=== PATIENT | female | born 1960 | race Caucasian/White ===

== ENCOUNTER 2022-03-10 07:33 | Outpatient (REF) | payer OTHER, SELFPAY ==
[2022-03-10 08:32] LABS: Basophils Absolute Auto 0.1 X10*3/uL (0.0-0.2); Basophils Percent Auto 0.5 % (0-2); Eosinophils Absolute Auto 0.2 X10*3/uL (0.0-0.4); Eosinophils Percent Auto 1.6 % (0-4); Estimated Average Glucose 114 mg/dL; Hematocrit 45.5 % (37.0-47.0); Hemoglobin 14.1 g/dl (12.0-16.0); Hemoglobin A1c % 5.6 %; Imm Gran Abs Auto 0.02 X10*3/uL (0.00-0.03); Imm Gran Pct Auto 0.2 % (0.0-0.4); Lymphocytes Absolute Auto 5.6 X10*3/uL (1.2-4.9); MANUAL DIFF FLAG SCAN; Mean Corpuscular Hemoglobin 29.1 pg (27.0-33.0); Mean Corpuscular Volume 93.8 fL (80.0-98.0); Mean Platelet Volume 9.2 fL (9.4-12.3); Monocytes Absolute Auto 0.8 X10*3/uL (0.1-1.2); Monocytes Percent Auto 8.5 % (2-11); Neutrophils Absolute Auto 3.2 x10*3/uL (2.0-8.3); Neutrophils Percent Auto 32.2 % (45-73); Platelet Count 436 X10*3/uL (160-400); Red Blood Count 4.85 X10*6/uL (4.20-5.50); Red Cell Distribution Width 13.2 % (11.0-16.0); SCAN SMEAR FLAG 1; White Blood Count 9.9 X10*3/uL (4.8-10.8)
[2022-03-10 08:58] LABS: Alanine Aminotransferase 18 U/L (0-31); Albumin Level 4.1 g/dL (3.5-5.0); Alkaline Phosphatase 144 U/L (39-117); Anion Gap 14 (12-20); Aspartate Amino Transferase 19 U/L (5-31); Bilirubin Total 0.3 mg/dL (0.0-1.0); Blood Urea Nitrogen 20 mg/dL (9-16); Calcium 9.7 mg/dL (8.4-10.2); Carbon Dioxide 34 mmol/L (22-29); Chloride 97 mmol/L (96-108); Cholesterol 230 mg/dL; Estimated Glomerular Filt Rate 41; Glucose Random 126 mg/dL (60-115); HDL Cholesterol 41 mg/dL; LDL Cholesterol Calculated 161 mg/dl; Potassium 4.4 mmol/L (3.3-5.1); Sodium 141 mmol/L (135-145); Total Protein 7.4 g/dL (6.5-8.0); Triglycerides 142 mg/dL
[2022-03-10 09:06] LABS: SLIDE REVIEW VERIFIED
[2022-03-10 09:31] LABS: Ferritin 20 ng/mL (10-250); Folate 12.3 ng/mL (> or = 4.0); Thyroid Stimulating Hormone 4.15 uIU/mL (0.32-4.0); Vitamin B12 307 pg/mL (200-900)
== END 2022-03-10 07:34 | disposition home or self-care (01) ==
LOC: HO.LAB 07:33
PROVIDERS: PCP Internal Medicine; Visit Provider Internal Medicine
DX: D50.8 Other iron deficiency anemias (principal); E11.9 Type 2 diabetes mellitus without complications; E78.00 Pure hypercholesterolemia, unspecified; F43.12 Post-traumatic stress disorder, chronic; J44.9 Chronic obstructive pulmonary disease, unspecified
CPT/HCPCS: 36415; 80053; 80061; 82043; 82607; 82728; 82746; 83036; 84443; 85025

== ENCOUNTER 2023-03-20 11:28 | Outpatient (REF) | payer OTHER, SELFPAY ==
[2023-03-20 13:30] LABS: Basophils Absolute Auto 0.1 X10*3/uL (0.0-0.2); Basophils Percent Auto 0.4 % (0-2); Eosinophils Absolute Auto 0.2 X10*3/uL (0.0-0.4); Eosinophils Percent Auto 1.1 % (0-4); Hematocrit 38.9 % (37.0-47.0); Hemoglobin 11.7 g/dl (12.0-16.0); Imm Gran Abs Auto 0.08 X10*3/uL (0.00-0.03); Imm Gran Pct Auto 0.4 % (0.0-0.4); Lymphocytes Absolute Auto 4.1 X10*3/uL (1.2-4.9); Lymphocytes Percent Auto 22.3 % (20-40); MANUAL DIFF FLAG SCAN; Mean Corpuscular HGB Conc 30.1 g/dl (31.0-35.0); Mean Corpuscular Hemoglobin 28.3 pg (27.0-33.0); Mean Platelet Volume 9.4 fL (9.4-12.3); Monocytes Absolute Auto 1.6 X10*3/uL (0.1-1.2); Monocytes Percent Auto 8.9 % (2-11); Neutrophils Absolute Auto 12.2 x10*3/uL (2.0-8.3); Neutrophils Percent Auto 66.9 % (45-73); Platelet Count 397 X10*3/uL (160-400); Red Blood Count 4.14 X10*6/uL (4.20-5.50); Red Cell Distribution Width 14.3 % (11.0-16.0); SCAN SMEAR FLAG 1; White Blood Count 18.2 X10*3/uL (4.8-10.8)
[2023-03-20 13:44] LABS: Alanine Aminotransferase 15 U/L (0-31); Albumin Level 3.9 g/dL (3.5-5.0); Alkaline Phosphatase 111 U/L (39-117); Anion Gap 12 (12-20); Aspartate Amino Transferase 21 U/L (5-31); Bilirubin Total 0.3 mg/dL (0.0-1.0); Blood Urea Nitrogen 14 mg/dL (9-16); Calcium 9.5 mg/dL (8.4-10.2); Carbon Dioxide 38 mmol/L (22-29); Chloride 98 mmol/L (96-108); Cholesterol 101 mg/dL (<200); Estimated Glomerular Filt Rate > 60; Glucose Random 87 mg/dL (60-115); HDL Cholesterol 41 mg/dL (>40); LDL Cholesterol Calculated 45 mg/dL (<100); Potassium 4.7 mmol/L (3.3-5.1); Sodium 143 mmol/L (135-145); Total Protein 7.6 g/dL (6.5-8.0); Triglycerides 78 mg/dL (<150)
[2023-03-20 13:51] LABS: SLIDE REVIEW VERIFIED
[2023-03-20 14:03] LABS: Ferritin 26 ng/mL (10-250)
[2023-03-20 14:14] LABS: Creatinine Urine 36.64 mg/dL; Microalbum/Creatinine Ratio Ur 21.8 ug/mg cr (<30)
[2023-03-21 02:58] LABS: Vitamin B12 417 pg/mL (200-900)
== END 2023-03-20 11:29 | disposition home or self-care (01) ==
LOC: HO.10HDL 11:28
PROVIDERS: Visit Provider Internal Medicine
DX: D50.8 Other iron deficiency anemias (principal); E11.9 Type 2 diabetes mellitus without complications; E78.00 Pure hypercholesterolemia, unspecified; F43.12 Post-traumatic stress disorder, chronic; R09.02 Hypoxemia
CPT/HCPCS: 36415; 80053; 80061; 82043; 82570; 82607; 82728; 85025

== ENCOUNTER 2023-05-04 10:39 | Outpatient (REF) | payer OTHER, SELFPAY ==
--- NOTE | ~2023-05-04 | XR_ITS ---
EXAMINATION: XR CHEST CLINICAL INFORMATION: COPD/pneumonia COMPARISON: None available. TECHNIQUE: 2 views of the chest were obtained. FINDINGS: There is increased streaky opacity in the right upper lobe suggestive of pneumonia. No pleural effusion. There is mild enlargement of the cardiac silhouette. No acute osseous abnormality. XR/XR chest 2V IMPRESSION: Right upper lobe pneumonia. Follow-up to resolution is suggested.
== END 2023-05-04 10:40 | disposition home or self-care (01) ==
LOC: HO.XRAY 10:39
PROVIDERS: PCP Internal Medicine; Visit Provider Internal Medicine
DX: J44.9 Chronic obstructive pulmonary disease, unspecified (principal)
CPT/HCPCS: 71046

== ENCOUNTER 2023-06-01 15:45 | Outpatient (AMB) | payer OTHER, SELFPAY ==
--- NOTE | 2023-06-01 15:39 | A.OFFVIS_ITS ---
Vital Signs 06/01/23 15:45 Height 5 ft 7 in Weight 246 lb BMI 38.5 BP 104/62 Blood Pressure Location Rt brachial Position Sitting Pulse 62 Pulse Source Doppler Pulse Oximetry (%) 89 L Oxygen Delivery Method Nasal Cannula Oxygen Flow Rate 3 Intake Visit Reasons: possible lung mass Allergies No Known Allergies [No Known Allergies*] Allergy (Unverified 10/24/19 14:57) HPI HPI possible lung mass: Details: 63-year-old lady, former 60+ pack-year smoker, quit 2020 on supplemental oxygen referred for pulmonary evaluation. Patient states that she has been supplemental oxygen now for the last 7-8 years, likely secondary to possible underlying COPD. She is also complain of unrestful sleep and is interested in evaluation for sleep apnea. Patient does have a prior history of aspiration after prior strokes, however she does not have recent swallowing evaluation. Patient denies having prior pulmonary function testing. She is complaining of orthopnea, lower extremity edema, and dyspnea on exertion. Review of Systems Const Reports daytime sleepiness, Denies excessive sweating, Reports fatigue, Denies fever(s), Denies lethargy, Denies malaise, Denies night sweats, Reports snoring and Denies weight loss Eyes Denies blurry vision and Denies itchy eyes ENT Denies nasal congestion, Denies post nasal drip, Denies sinus pain, Denies sinus pressure and Denies other ( Thrush) Card Denies chest pain, Denies pedal edema, Denies dyspnea, Reports dyspnea on exertion, Denies orthopnea and Denies paroxysmal nocturnal dyspnea Resp Denies cough, Denies hemoptysis, Denies excessive phlegm production, Denies dyspnea, Reports dyspnea on exertion, Reports snoring and Denies wheezing GI Denies abdominal pain and Denies heartburn Musc Denies myalgias, Denies arthralgias and Denies joint swelling Skin/Breast Denies rash Neuro Denies memory loss and Denies seizure-like activity Psych Denies abnormal sleep pattern, Denies anxiety and Denies memory loss Endo Denies excessive sweating, Reports fatigue and Denies heat intolerance Shaq/Lymph Denies easy bruising Aller/Immun Denies itchy eyes, Denies seasonal rhinorrhea and Denies wheezing Physical Exam Vital Signs: Last Vital Signs Pulse 62 06/01/23 15:45 BP 104/62 06/01/23 15:45 Pulse Ox 89 L 06/01/23 15:45 Oxygen Delivery Method Nasal Cannula 06/01/23 15:45 Oxygen Flow Rate 3 06/01/23 15:45 BMI result Body Mass Index 38.5 Const General: no acute distress and alert Nutritional Appearance: obese Orientation/consciousness: Other orientation findings ( oriented) HEENT Head: Yes atraumatic Eyes General: appearance normal, both eyes and all related structures Sclerae: sclerae normal EOM: EOMs intact bilaterally Neck Neck: Yes supple Lymphatic: no lymphadenopathy noted Resp Effort & Inspection: normal respiratory effort and no use of accessory muscles Auscultation: clear to auscultation bilaterally Cardio Rate: regular rate Rhythm: regular rhythm Heart sounds: no gallops, no murmurs and no rubs Skin General skin exam: other ( warm) Extrem General: No clubbing, No cyanosis and Yes edema (1+ bilateral) Assessment & Plan Assessment & Plan (1) STEIN (dyspnea on exertion): Code(s): R06.09 - Other forms of dyspnea Category: Medical Plan: Likely multifactorial with contribution from underlying pulmonary and cardiac components. Will obtain 2D echocardiogram to evaluate cardiac component. (2) Supplemental oxygen dependent: Code(s): Z99.81 - Dependence on supplemental oxygen Category: Medical Plan: In office supplemental oxygen/6 minute walk test performed. Patient requires supplemental oxygen at 2 L at rest and 4 L with exertion to maintain normal. Updated order placed with [employer]. (3) Pulmonary aspiration: Code(s): T17.900A - Unspecified foreign body in respiratory tract, part unspecified causing asphyxiation, initial encounter Category: Medical Plan: Will obtain modified barium swallow. (4) Personal history of nicotine dependence: Code(s): Z87.891 - Personal history of nicotine dependence Category: Medical Plan: Will obtain lung cancer screening CT chest. (5) COPD (chronic obstructive pulmonary disease): Code(s): J44.9 - Chronic obstructive pulmonary disease, unspecified Category: Medical Plan: Unclear severity suboptimally controlled on Spiriva. Will change Spiriva to Anoro. Will obtain full PFT. Continue albuterol MDI. (6) ELSA (obstructive sleep apnea): Code(s): G47.33 - Obstructive sleep apnea (adult) (pediatric) Category: Medical Plan: Unrestful sleep, daytime sleepiness, snoring. [place] Sleepiness Scale score of 16. Will obtain home sleep study. Orders: Orders PFT pulmonary function test Today J44.9 - Chronic obstructive pulmonary disease, unspecified CT lung screening Today Z87.891 - Personal history of nicotine dependence FL barium swallow modified Today T17.900A - Unspecified foreign body in respiratory tract, part unspecified causing asphyxiation, initial encounter CA echo transthoracic complete Today R06.09 - Other forms of dyspnea RT home sleep study Today G47.33 - Obstructive sleep apnea (adult) (pediatric) Medications: New umeclidinium-vilanterol 62.5-25 mcg/actuation (Anoro Ellipta) 1 inh inhalation DAILY 30 days 1 ea 6RF J44.9 - Chronic obstructive pulmonary disease, unspecified Coding Level of Care Code New Pt Level 5 (35968) Diagnoses STEIN (dyspnea on exertion) R06.09 Supplemental oxygen dependent Z99.81 Pulmonary aspiration T17.900A Personal history of nicotine dependence Z87.891 COPD (chronic obstructive pulmonary disease) J44.9 ELSA (obstructive sleep apnea) G47.33
[2023-06-01 15:45] VITALS: BP 104/62; PULSE 62; O2SAT 89; BMI 38.5
[2023-06-01 16:51] VITALS: PULSE 86; O2SAT 86; O2SAT 92
== END 2023-06-01 16:17 | disposition home or self-care (01) ==
PROVIDERS: PCP Internal Medicine; Visit Provider Internal Medicine Pulmonary Disease
DX: J44.9 Chronic obstructive pulmonary disease, unspecified (principal); Z99.81 Dependence on supplemental oxygen; T17.900A Unspecified foreign body in respiratory tract, part unspecified causing asphyxiation, initial encounter; Z87.891 Personal history of nicotine dependence; G47.33 Obstructive sleep apnea (adult) (pediatric)
CPT/HCPCS: 94618; 99204

== ENCOUNTER → 2023-06-01 15:45 | Outpatient (BNVA) | payer OTHER, SELFPAY | PROVIDERS: PCP Internal Medicine; Visit Provider Internal Medicine Pulmonary Disease | DX: R06.09 Other forms of dyspnea (principal); J44.9 Chronic obstructive pulmonary disease, unspecified; T17.900A Unspecified foreign body in respiratory tract, part unspecified causing asphyxiation, initial encounter; G47.33 Obstructive sleep apnea (adult) (pediatric); Z87.891 Personal history of nicotine dependence; Z99.81 Dependence on supplemental oxygen | CPT/HCPCS: 94618; 99202 ==

== ENCOUNTER 2023-06-06 11:36 | Outpatient (REF) | payer OTHER, SELFPAY ==
--- NOTE | ~2023-06-06 | XR_ITS ---
EXAMINATION: XR CHEST CLINICAL INFORMATION: Fever, cough, question pneumonia. COMPARISON: 05/04/2023 TECHNIQUE: 2 views of the chest were obtained. FINDINGS: There is no gross pneumothorax. Redemonstration of enlargement of the cardiac silhouette. Mild degenerative changes in the thoracic spine. Diffusely prominent interstitial markings and moderate predominantly bibasilar opacities. Possible trace bilateral pleural effusions. XR/XR chest 2V IMPRESSION: Diffusely prominent interstitial markings and moderate predominantly bibasilar opacities. Possible trace bilateral pleural effusions. Previously noted right upper lobe streaky opacity appears less prominent. This study was presented today June 06, 2023 for interpretation. Stat results provided at this time as requested by referring provider.
== END 2023-06-06 11:37 | disposition home or self-care (01) ==
LOC: HO.XRAY 11:36
PROVIDERS: PCP Internal Medicine; Visit Provider Internal Medicine
DX: R05.9 Cough, unspecified (principal); R50.9 Fever, unspecified
CPT/HCPCS: 71046

== ENCOUNTER 2023-06-16 10:27 | Outpatient (REF) | payer OTHER, SELFPAY ==
--- NOTE | ~2023-06-16 | FL_ITS ---
EXAMINATION: Modified Barium Swallows CLINICAL INFORMATION: Dysphagia COMPARISON: None TECHNIQUE: Modified barium swallow was performed under lateral fluoroscopy with patient in standing position. Barium mixed with solids and liquids of different consistencies was administered by the speech pathologist. Examination was recorded in the fluoroscopy suite. FINDINGS: Laryngeal penetration was seen with nectar thick barium. Aspiration was observed with thin barium. FLUOROSCOPY TIME: 2 minutes 44 seconds Number of Spot Images: 1 DOSE AREA PRODUCT: 267.3 uGy-m2 (microgray-meter squared) FL/FL barium swallow modified IMPRESSION: Laryngeal penetration was seen with nectar thick barium. Aspiration was observed with thin barium. Refer to the full speech therapy report for further clarification This procedure was performed by Momo Owens PA-C, and supervised by Dr. Bryson
--- NOTE | 2023-06-29 14:17 | MHC.SL.IMP ---
Date of Plan of Treatment: 06/16/23 Onset of Symptoms/Illness: 06/01/23 Date Treatment Started: 06/16/23 Admitting Diagnosis: COPD Primary Speech & Language Diagnosis: R13.12 Oropharyngeal Phase Dysphagia Secondary Speech & Language Diagnosis: Reason for Today's Visit: [id number] Modified Barium Swallow Study Comments: Pre-evaluation Dietary Consistencies: Regular Pre-evaluation Liquid Consistency: Thin Pre-evaluation Medication Administration: Whole with Liquid Is patient able to manage secretions?: No Is patient able to produce volitional cough?: No Food and Liquid Trials: Oral Impairment: Lip Closure: 1=Interlabial escape; no progression to anterior tip Oral Impairment: Tongue Control During Bolus Hold: 0=Cohesive bolus between tongue to palatal seal Oral Impairment: Bolus Preparation/Mastication: 2=Disorganized chewing/mashing with solid pieces of bolus Oral Impairment: Bolus Transport/Lingual Motion: 1= Delayed initiation of tongue motion Oral Impairment: Oral Residue: 2=Residue collection on oral structures Oral Impairment:Initiation of Pharyngeal Swallow: 3=Bolus head in pyriforms Pharyngeal Impairment: Soft Palate Elevation: 0=No bolus between soft palate (SP)/pharyngeal wall (PW) Pharyngeal Impairment: Laryngeal Elevation: 1=Partial thyroid cartilage/arytenoids to epiglottic petiole movement Pharyngeal Impairment: Anterior Hyoid Excursion: 1=Partial anterior movement Pharyngeal Impairment: Epiglottic Movement: 1=Partial inversion Pharyngeal Impairment: Laryngeal Vestibular Closure:: 2=None: No inversion Pharyngeal Impairment: Pharyngeal Stripping Wave: 0=Present: complete Pharyngeal Impairment: Pharyngeal Contraction: Did not test Pharyngeal Impairment: Pharyngoesophageal Segment Openin=Partial distention/partial duration: partial obstruction of flow Pharyngeal Impairment: Tongue Base (TB) Retraction: 2=Narrow column of contrast/air between TB and posterior PW Pharyngeal Impairment: Pharyngeal Residue: 2=Collection of residue within or on pharyngeal structures Pharyngeal Impairment: Esophageal Clearance Upright Position: Did not test Impressions and Recommendations Clinical Observations: MBSImP Results: Lip closure for intraoral bolus containment resulted in interlabial escape, without progression to the anterior lip. Tongue control during bolus hold maintained a cohesive bolus held between tongue to palate seal. Bolus preparation and mastication demonstrated disorganized chewing/mashing with solid pieces of the bolus unchewed. Bolus transport/lingual motion demonstrated delayed initiation of tongue motion. Oral residue was a collection on oral structures. Initiation of the pharyngeal swallow occurred when the bolus head was in the pyriform sinuses. Soft palate elevation resulted in no bolus between the soft palate and the pharyngeal wall. Laryngeal elevation was decreased, with partial superior movement of the thyroid cartilage/partial approximation of the arytenoids to the epiglottic petiole. Anterior hyoid excursion demonstrated partial anterior movement. Epiglottic movement resulted in partial inversion. Laryngeal vestibular closure was absent, resulting in a wide column of air/contrast within the laryngeal vestibule at the height of the swallow. Pharyngeal stripping wave was present and complete. Pharyngeal contraction could not be determined due to logistical reasons not related to physiologic impairment. Pharyngoesophageal segment opening demonstrated partial distension/partial duration, with partial obstruction of bolus flow. Tongue base retraction allowed a narrow column of contrast or air between the retracted tongue base and the posterior pharyngeal wall. Pharyngeal residue was a collection of residue within or on pharyngeal structures. Esophageal clearance in the upright position could not be assessed due to logistical reasons not related to physiologic impairment. Oral Impairment Score: 8 Pharyngeal Impairment Score: 10 (absence of score, component 13) Esophageal Impairment Score: --- (absence of score, component 17) Laryngeal Penetration and Aspiration: Both Penetration and Aspiration were observed in today's study. [place]-thick Contrast entered the airway, contacted the vocal folds, and was ejected from the airway. Thin Contrast entered the airway, passed below the vocal folds, and was not ejected from the trachea despite effort. SUMMARY: Josephine presents with a moderate to severe oropharyngeal dysphagia. Oral phase difficulties include difficulty with bolus preparation due to reduced tongue strength and limited dentition leading to oral and pharyngeal residue after the initial swallow. Pharyngeal phase difficulties include poor tongue base retraction and limited motion of the epiglottis, hyoid and thyroid cartilage. Laryngeal vestibular closure at the height of the swallow resulted in a wide band of contrast in the airway that led to aspiration with an uncontrolled cup sip of Thin Liquids. Of note, she was able to tolerate Thin Liquids via spoon and with directions to take a small sip with bolus hold. Aspiration was also observed on [place]-Thick Liquids with an uncontrolled cup sip in the presence of pharyngeal residue. Aspiration on [place]-Thick Liquids was eliminated with cues to take a small sip and use bolus hold, even in the presence of pharyngeal residue. She is motivated to pursue follow-up and would benefit from outpatient [facility] treatment at this time. Liquid Intake Recommendation: [place] Thick Liquid Intake Strategies: Small Sips No Straws Double Swallow Dietary Recommendations: Chopped/Advanced (NDD3) Medication Administration: Whole with Puree Please contact the pharmacy regarding appropriate crushable or liquid drug formulations that are available whenever modified delivery is recommended. Compensatory Strategies Recommended: Sitting Upright (90 deg) Double Swallow Small Bites and Sips Alternate Liquids/Solids Rate of Ingestion Change Oral Check Avoid Specific Foods Supervision during eating and or drinking: Intermittent Supervision Recommended Treatments: Oral Motor Exercises Base of Tongue Exercises Vocal Cord Adduction Exer Recommendation for Speech Therapy: Outpatient Speech Therapy Text Comment: PLAN: Intake Recommendations: Post-Study Functional Oral Intake Scale (FOIS): 6- Total oral intake with no special preparation, but must avoid specific foods or liquid items. Specifically, IDDSI Level 6 ? Soft and Bite Sized Solids with [place]-Thick Liquids during meals. Follow-up with Outpatient [facility] to review strategies and modifications and work towards a [place] Free Water Protocol for home use. Frequency/Duration: 1 x week x 6 weeks Date Range for Service Requested: TBD Timeline to reassess: PRN Special Education Paraeducator Clinician/Clinical Fellow: No Supervisory Statement: N/A Speech Language Pathologist: Luis Enrique Mohamud M.A., CCC-[facility]
== END 2023-06-16 10:28 | disposition home or self-care (01) ==
LOC: HO.XRAY 10:27
PROVIDERS: PCP Internal Medicine; Visit Provider Internal Medicine Pulmonary Disease
DX: T17.900A Unspecified foreign body in respiratory tract, part unspecified causing asphyxiation, initial encounter (principal)
CPT/HCPCS: 74230; 92611

== ENCOUNTER → 2023-06-16 10:30 | Outpatient (BNV) | payer OTHER, SELFPAY | PROVIDERS: PCP Internal Medicine; Visit Provider Physician Assistant Surgical | DX: R13.10 Dysphagia, unspecified (principal) | CPT/HCPCS: 74230 ==

== ENCOUNTER 2023-07-14 11:06 | Outpatient (AMB) | payer OTHER, SELFPAY ==
[2023-07-14 11:07] VITALS: BP 104/60; PULSE 64; O2SAT 94; BMI 36.9
--- NOTE | 2023-07-14 11:07 | MHC.OFFVIS ---
Vital Signs 07/14/23 11:07 Height 5 ft 7 in Weight 235 lb 14.314 oz BMI 36.9 BP 104/60 Blood Pressure Location Rt brachial Position Sitting Pulse 64 Pulse Source Doppler Pulse Oximetry (%) 94 Oxygen Delivery Method Nasal Cannula Oxygen Flow Rate 4 Intake Visit Reasons: persistent cough, wheeze Allergies No Known Allergies [No Known Allergies*] Allergy (Unverified 10/24/19 14:57) HPI HPI persistent cough, wheeze: Details: 63-year-old lady, former 60+ pack-year smoker, quit 2020 on supplemental oxygen referred for pulmonary evaluation. Patient states that she has been supplemental oxygen now for the last 7-8 years, likely secondary to possible underlying COPD. She is also complain of unrestful sleep and is interested in evaluation for sleep apnea. Patient does have a prior history of aspiration after prior strokes, however she does not have recent swallowing evaluation. Patient denies having prior pulmonary function testing. She is complaining of orthopnea, lower extremity edema, and dyspnea on exertion. patient today presents for sick visit complaining of recurrent cough intermittently productive of some sputum, though better after starting on speech therapy for underlying aspirations. Rest of workup is still pending. Review of Systems Const Reports daytime sleepiness, Denies excessive sweating, Reports fatigue, Denies fever(s), Denies lethargy, Denies malaise, Denies night sweats, Denies snoring and Denies weight loss Eyes Denies blurry vision and Denies itchy eyes ENT Denies nasal congestion, Denies post nasal drip, Denies sinus pain, Denies sinus pressure and Denies other ( Thrush) Card Denies chest pain, Denies pedal edema, Reports dyspnea and Denies paroxysmal nocturnal dyspnea Resp Denies cough, Denies hemoptysis, Reports excessive phlegm production, Reports dyspnea, Denies snoring and Denies wheezing GI Denies abdominal pain and Denies heartburn Musc Denies myalgias, Denies arthralgias and Denies joint swelling Skin/Breast Denies rash Neuro Denies memory loss and Denies seizure-like activity Psych Denies abnormal sleep pattern, Denies anxiety and Denies memory loss Endo Denies excessive sweating, Reports fatigue and Denies heat intolerance Shaq/Lymph Denies easy bruising Aller/Immun Denies itchy eyes, Denies seasonal rhinorrhea and Denies wheezing Physical Exam Vital Signs: Last Vital Signs Pulse 64 06/07/24 11:07 BP 104/60 07/14/23 11:07 Pulse Ox 94 07/14/23 11:07 Oxygen Delivery Method Nasal Cannula 07/14/23 11:07 Oxygen Flow Rate 4 07/14/23 11:07 BMI result Body Mass Index 36.9 Const General: no acute distress and alert Nutritional Appearance: obese Orientation/consciousness: Other orientation findings ( oriented) HEENT Head: Yes atraumatic Eyes General: appearance normal, both eyes and all related structures Sclerae: sclerae normal EOM: EOMs intact bilaterally Neck Neck: Yes supple Lymphatic: no lymphadenopathy noted Resp Effort & Inspection: normal respiratory effort and no use of accessory muscles Auscultation: clear to auscultation bilaterally Cardio Rate: regular rate Rhythm: regular rhythm Heart sounds: no gallops, no murmurs and no rubs Skin General skin exam: other ( warm) Extrem General: No clubbing, No cyanosis and No edema Assessment & Plan Assessment & Plan (1) Pulmonary aspiration: Code(s): T17.900A - Unspecified foreign body in respiratory tract, part unspecified causing asphyxiation, initial encounter Category: Medical (2) Supplemental oxygen dependent: Code(s): Z99.81 - Dependence on supplemental oxygen Category: Medical (3) Personal history of nicotine dependence: Code(s): Z87.891 - Personal history of nicotine dependence Category: Medical (4) COPD (chronic obstructive pulmonary disease): Code(s): J44.9 - Chronic obstructive pulmonary disease, unspecified Category: Medical (5) ELSA (obstructive sleep apnea): Code(s): G47.33 - Obstructive sleep apnea (adult) (pediatric) Category: Medical (6) STEIN (dyspnea on exertion): Code(s): R06.09 - Other forms of dyspnea Category: Medical Plan Results of MBS reviewed, acute on chronic aspiration with likely pneumonitis. Will treat with a brief course of Augmentin. Rest of the workup is pending. Continue supplemental oxygen to maintain O2 saturation 88-92%. Medications: New amoxicillin-pot clavulanate 875-125 mg 1 tab PO BID 14 tabs 0RF Coding Level of Care Code Est Pt Level 4 (75030) Diagnoses Pulmonary aspiration T17.900A Supplemental oxygen dependent Z99.81 Personal history of nicotine dependence Z87.891 COPD (chronic obstructive pulmonary disease) J44.9 ELSA (obstructive sleep apnea) G47.33 STEIN (dyspnea on exertion) R06.09
== END 2023-07-14 11:37 | disposition home or self-care (01) ==
PROVIDERS: PCP Internal Medicine; Visit Provider Internal Medicine Pulmonary Disease
DX: J44.9 Chronic obstructive pulmonary disease, unspecified (principal); G47.33 Obstructive sleep apnea (adult) (pediatric); Z99.81 Dependence on supplemental oxygen; Z87.891 Personal history of nicotine dependence
CPT/HCPCS: 99214

== ENCOUNTER → 2023-07-14 11:06 | Outpatient (BNVA) | payer OTHER, SELFPAY | PROVIDERS: PCP Internal Medicine; Visit Provider Internal Medicine Pulmonary Disease | DX: J44.9 Chronic obstructive pulmonary disease, unspecified (principal); R06.09 Other forms of dyspnea; T17.900A Unspecified foreign body in respiratory tract, part unspecified causing asphyxiation, initial encounter; G47.33 Obstructive sleep apnea (adult) (pediatric); Z87.891 Personal history of nicotine dependence; Z99.81 Dependence on supplemental oxygen | CPT/HCPCS: 99212 ==

== ENCOUNTER → 2023-07-18 13:02 | Outpatient (REF) | payer OTHER, SELFPAY ==
--- NOTE | 2023-07-18 13:05 | CA_ITS ---
Transthoracic Echocardiogram Patient (Last, First, Middle): Josephine Giron, Gender: Female Date of : 1960 Age: 63 Procedure Date: 07/18/2023 Procedure Type: Transthoracic Echocardiogram Location: OP Height: 170.18 cm Weight: 104.33 kg BSA: 2.15 m2 Heart Rate: bpm BP: 88 / 56 mmHg Hand Patcher: [place] Referring MD: Gelacio Moreno MD Symptoms: R06.09 - Other forms of dyspnea Study Quality: Adequate ECG Rhythm: Sinus Conclusions: - The left ventricular systolic function is normal. The calculated ejection fraction is 69% by biplane method. - No obvious valvular pathology seen on this study. - There is no evidence of pulmonary hypertension. Findings Left Ventricle Normal left ventricular cavity size. There is normal left ventricular wall thickness. The left ventricular systolic function is normal. The calculated ejection fraction is 69% by biplane method. There is no evidence of regional wall motion abnormalities. Diastolic function is normal for age. LV peak GLS -22.2%. Right Ventricle Mildly increased right ventricular cavity size. There is normal right ventricular systolic function. Atria Both atria are normal in size. Aortic Valve There is a normal trileaflet aortic valve. There is no aortic valve stenosis. There is no aortic valve regurgitation. Mitral Valve The mitral valve appears normal. There is trace mitral valve regurgitation. There is no mitral valve stenosis. Pulmonic Valve The pulmonic valve is likely normal. Tricuspid Valve Normal tricuspid valve structure. There is trace tricuspid valve regurgitation. There is no evidence of pulmonary hypertension. Great Vessels The asc aorta is normal in size. Venous The inferior vena cava is normal in size and collapses less than 50% with inspiration. Pericardium/Pleural There is no evidence of pericardial effusion. Prior Study Comparison No prior study available for comparison. Recommendations, Care & Conclusions No obvious valvular pathology seen on this study. Measurements 2D Linear Measurements IVSd: 0.89 0.6-0.9/0.6-1.0 cm LVIDd: 5.28 3.9-5.3/4.2-5.9 cm LVIDd Index: 2.46 2.4-3.2/2.2-3.1 cm/m2 LVIDs: 3.35 2.0-3.6 cm LVPWd: 0.95 0.7-1.1 cm LA Diam: 4.10 2.7-3.8/3.0-4.0 cm LAIDs Index: 1.91 1.5-2.3 cm/m2 LV Mass: 222.14 67-162/88-224 g LV Mass Index: 103.32 43-95/49-115 g/m2 LVOT Diam: 2.00 3.0+(-)1.3 cm 2D Systolic Function EF 4C: 69.40 >55% EF 2C: 68.30 >55% EF BiP: 68.80 >55% Mitral Valve MV Pk E: 0.82 MV PK A: 0.73 MV Decel Time: 218.00 E/A: 1.10 E'Lateral: 10.90 E'Medial: 7.72 E/E' Med: 10.60 E/E' Lat: 7.50 PHT: 64.00 MVA PHT: 3.44 Decel [place]: 3.75 Aortic Valve AoV Pk Deep: 1.58 AoV Mn Deep: 1.10 AoV VTI: 0.43 AoV Pk Grad: 10.00 Aov Mn Grad: 6.00 MIRIAN Cont.VTI: 2.24 LVOT LVOT Pk Deep: 1.26 LVOT Mn Depe: 0.81 LVOT VTI: 0.31 LVOT Pk Grad: 6.00 LVOT Mn Grad: 3.00 LVOT Diam: 2.00 LVOT Area: 3.14 Diastolic Function MV Pk E: 0.82 MV Pk A: 0.73 E/A: 1.10 E'Medial: 7.72 E/E' Med: 10.60 E' Laterial: 10.90 E/E' Lat: 7.50 Right Ventricle TAPSE (mm): 23.50 TVS' Deep: 11.70 Tricuspid Valve TR Pk Deep: 2.39 TR Pk Grad: 23.00 RA Press: 8.00 RVSP: 31.00 Great Vessels Aorta Sinus of Valsalva: 3.06 2.0-3.[address] [place]: 2.55 1.7-3.4 cm Ao Asc: 3.30 2.1-3.4 cm Updated in Other Vendor System with Status of Final Lazarus Wilder MD electronically signed on 07/19/2023 10:23:16 AM with status of Final
== END ==
LOC: HO.CARD 13:02
PROVIDERS: PCP Internal Medicine; Visit Provider Internal Medicine Pulmonary Disease
DX: G47.33 Obstructive sleep apnea (adult) (pediatric) (principal); R06.09 Other forms of dyspnea
CPT/HCPCS: 93306; 93356; 95806

== ENCOUNTER → 2023-07-18 13:05 | Outpatient (BNV) | payer OTHER, SELFPAY | PROVIDERS: PCP Internal Medicine; Visit Provider Internal Medicine | DX: R06.09 Other forms of dyspnea (principal) | CPT/HCPCS: 93306; 93356 ==

== ENCOUNTER → 2023-07-18 14:54 | Outpatient (BNV) | payer OTHER, SELFPAY | PROVIDERS: PCP Internal Medicine; Visit Provider Internal Medicine | DX: R06.83 Snoring (principal) | CPT/HCPCS: 95806 ==

== ENCOUNTER 2023-07-20 12:59 | Outpatient (REF) | payer OTHER, SELFPAY ==
--- NOTE | ~2023-07-20 | CT_ITS ---
EXAMINATION: CT LOW-DOSE SCREENING CHEST WITHOUT CONTRAST CLINICAL INFORMATION: Personal history of nicotine dependence. The patient has a 40 pack-year history of smoking, having quit 3 years ago. COMPARISON: Chest x-ray 06/06/2023 and 05/04/2023. TECHNIQUE: Multidetector volumetric CT imaging of the chest is performed on a Siemens SOMATOM Definition scanner without contrast using low dose technique. Additional 2D coronal and sagittal reformatted images and axial 3D maximum intensity projection (MIP) images are generated on the CT workstation. This CT examination was performed using dose optimization techniques as appropriate, variously including the following: *Automated exposure control. *Adjustment of mA and/or kV according to patient size (this includes techniques or standardized protocols for targeted exams where dose is matched to indication/reason for exam; i.e. extremities or head). *Use of iterative reconstruction technique. TOTAL EXAM DLP: 46 mGy-cm. CTDIvol: 1.59 mGy. FINDINGS: PULMONARY NODULES: No suspicious pulmonary nodules. LUNGS: Lungs bilaterally symmetrically expanded. There is moderate emphysema and bronchial thickening. Bibasilar atelectasis is seen with some dependent ground-glass changes. No effusion or pneumothorax. Central airways patent. MEDIASTINUM: No mediastinal, hilar or axillary adenopathy or free fluid collection. CORONARY ARTERY CALCIFICATION: Moderate. THYROID GLAND: Unremarkable to the extent seen. CARDIOVASCULAR STRUCTURES: Aortic and heart size normal. No pericardial effusion. CHEST WALL/AXILLA: Unremarkable. UPPER ABDOMEN: The liver appears enlarged. Status post cholecystectomy. Spleen is absent. OSSEOUS STRUCTURES: No suspicious focal findings. CT/CT lung screening IMPRESSION: 1. No evidence of pulmonary malignancy. 2. Moderate emphysema and bronchial thickening. 3. Other incidental findings as described above. ASSESSMENT: 1. Lung-RADS Category 1: Negative. There are no nodules or there are definitely benign nodules. N/A. 2. Lung-RADS Category S: Negative. There are no clinically significant or potentially clinically significant findings not related to the lungs requiring urgent additional evaluation. RECOMMENDATION: Continued routine annual low-dose CT lung screening in 1 year is recommended. An order for CT CHEST LOW DOSE CANCER SCREENING ([id number]) can be placed.
== END 2023-07-20 13:00 | disposition home or self-care (01) ==
LOC: HO.CT 12:59
PROVIDERS: PCP Internal Medicine; Visit Provider Internal Medicine Pulmonary Disease
DX: Z12.2 Encounter for screening for malignant neoplasm of respiratory organs (principal); Z87.891 Personal history of nicotine dependence
CPT/HCPCS: 71271

== ENCOUNTER 2023-07-27 13:50 | Outpatient (AMB) | payer OTHER, SELFPAY ==
[2023-07-27 13:52] VITALS: BP 102/58; PULSE 67; O2SAT 93; BMI 36.4
--- NOTE | 2023-07-27 13:52 | MHC.OFFVIS ---
Vital Signs 07/27/23 13:52 Height 5 ft 7 in Weight 232 lb 9.403 oz BMI 36.4 BP 102/58 L Blood Pressure Location Lt brachial Position Sitting Pulse 67 Pulse Source Doppler Pulse Oximetry (%) 93 Oxygen Delivery Method Nasal Cannula Oxygen Flow Rate 4 Intake Visit Reasons: COPD Allergies No Known Allergies [No Known Allergies*] Allergy (Verified 07/27/23 14:00) HPI HPI COPD: Details: 63-year-old lady, former 60+ pack-year smoker, quit 2020 now followed for supplemental oxygen dependent COPD, pulmonary aspiration, and possible obstructive sleep apnea. Patient had MBS that showed pulmonary aspiration and she is working with speech therapy on diet modification and swallowing techniques. Her 2D echocardiogram is essentially normal. Lung cancer screening CT chest official read is pending, but no worrisome nodules on my review. Patient is using albuterol MDI and Anoro with reasonable baseline control of her underlying COPD, except right after waking up. Her sleep study is pending. Patient denies recent acute exacerbations. Review of Systems Const Denies daytime sleepiness, Denies excessive sweating, Denies fatigue, Denies fever(s), Denies lethargy, Denies malaise, Denies night sweats, Denies snoring and Denies weight loss Eyes Denies blurry vision and Denies itchy eyes ENT Denies nasal congestion, Denies post nasal drip, Denies sinus pain, Denies sinus pressure and Denies other ( Thrush) Card Denies chest pain, Denies pedal edema, Denies dyspnea, Denies orthopnea and Denies paroxysmal nocturnal dyspnea Resp Denies cough, Denies hemoptysis, Denies excessive phlegm production, Denies dyspnea, Denies snoring and Denies wheezing GI Denies abdominal pain and Denies heartburn Musc Denies myalgias, Denies arthralgias and Denies joint swelling Skin/Breast Denies rash Neuro Denies memory loss and Denies seizure-like activity Psych Denies abnormal sleep pattern, Denies anxiety and Denies memory loss Endo Denies excessive sweating, Denies fatigue and Denies heat intolerance Shaq/Lymph Denies easy bruising Aller/Immun Denies itchy eyes, Denies seasonal rhinorrhea and Denies wheezing Physical Exam Vital Signs: Last Vital Signs Pulse 67 07/27/23 13:52 BP 102/58 L 07/27/23 13:52 Pulse Ox 93 07/27/23 13:52 Oxygen Delivery Method Nasal Cannula 07/27/23 13:52 Oxygen Flow Rate 4 07/27/23 13:52 BMI result Body Mass Index 36.4 Const General: no acute distress and alert Nutritional Appearance: not obese Orientation/consciousness: Other orientation findings ( oriented) HEENT Head: Yes atraumatic Eyes General: appearance normal, both eyes and all related structures Sclerae: sclerae normal EOM: EOMs intact bilaterally Neck Neck: Yes supple Lymphatic: no lymphadenopathy noted Resp Effort & Inspection: normal respiratory effort and no use of accessory muscles Auscultation: clear to auscultation bilaterally Cardio Rate: regular rate Rhythm: regular rhythm Heart sounds: no gallops, no murmurs and no rubs Skin General skin exam: other ( warm) Extrem General: No clubbing, No cyanosis and No edema Assessment & Plan Assessment & Plan (1) ELSA (obstructive sleep apnea): Code(s): G47.33 - Obstructive sleep apnea (adult) (pediatric) Category: Medical Plan: Sleep study is pending. (2) COPD (chronic obstructive pulmonary disease): Code(s): J44.9 - Chronic obstructive pulmonary disease, unspecified Category: Medical Plan: Unclear severity. PFT is pending. Continue Anoro and albuterol MDI. Will add duo nebs. (3) Personal history of nicotine dependence: Code(s): Z87.891 - Personal history of nicotine dependence Category: Medical Plan: Official read on lung cancer screening CT chest is not available. On my review and no worrisome nodules. Continue with yearly screening. (4) Pulmonary aspiration: Code(s): T17.900A - Unspecified foreign body in respiratory tract, part unspecified causing asphyxiation, initial encounter Category: Medical Plan: MBS positive for aspiration. Patient requires diet modification. DME letter written. Patient continues to work with speech therapy. (5) Supplemental oxygen dependent: Code(s): Z99.81 - Dependence on supplemental oxygen Category: Medical Plan: Continue supplemental oxygen to maintain O2 saturation of 88-92%. (6) STEIN (dyspnea on exertion): Code(s): R06.09 - Other forms of dyspnea Category: Medical Plan: Results of 2D echocardiogram reviewed and are essentially normal. Coding Level of Care Code Est Pt Level 4 (38441) Complex EM visit Add On G2211 Diagnoses ELSA (obstructive sleep apnea) G47.33 COPD (chronic obstructive pulmonary disease) J44.9 Personal history of nicotine dependence Z87.891 Pulmonary aspiration T17.900A Supplemental oxygen dependent Z99.81 STEIN (dyspnea on exertion) R06.09
== END 2023-07-27 14:16 | disposition home or self-care (01) ==
PROVIDERS: PCP Internal Medicine; Visit Provider Internal Medicine Pulmonary Disease
DX: G47.33 Obstructive sleep apnea (adult) (pediatric) (principal); J44.9 Chronic obstructive pulmonary disease, unspecified; Z87.891 Personal history of nicotine dependence; T17.900A Unspecified foreign body in respiratory tract, part unspecified causing asphyxiation, initial encounter; Z99.81 Dependence on supplemental oxygen; R06.09 Other forms of dyspnea
CPT/HCPCS: 99214; G2211

== ENCOUNTER → 2023-07-27 13:50 | Outpatient (BNVA) | payer OTHER, SELFPAY | PROVIDERS: PCP Internal Medicine; Visit Provider Internal Medicine Pulmonary Disease | DX: J44.9 Chronic obstructive pulmonary disease, unspecified (principal); G47.33 Obstructive sleep apnea (adult) (pediatric); R06.09 Other forms of dyspnea; T17.900A Unspecified foreign body in respiratory tract, part unspecified causing asphyxiation, initial encounter; Z87.891 Personal history of nicotine dependence | CPT/HCPCS: 99212 ==

== ENCOUNTER 2023-08-21 10:30 | Outpatient (RCR) | payer OTHER, SELFPAY ==
--- NOTE | 2023-09-15 10:39 | MHC.SL.DTX ---
Dysphagia Diet modifications: Last documented Solid diet consistencies: Chopped/Advanced (NDD3) Last documented Liquid consistency: Thin Changes made to current diet?: No Liquid Consistency and Strategies: Liquid Intake Recommendation: [place] Thick Compensatory Strategies for Safe Swallow: Small Sips No Straws Compensatory Strategies for Safe Swallow(b): Sitting Upright (90 deg) Liquids from Cup Small Bites and Sips Alternate Liquids/Solids Rate of Ingestion Change Avoid Specific Foods Solid Food Consistency: Dietary Recommendations: Chopped/Advanced (NDD3) Oral Medication Intake: Whole with Puree Strategies and Precautions to be Taken for Safe Swallow: Sitting Upright (90 deg) Liquids from Cup Small Bites and Sips Alternate Liquids/Solids Rate of Ingestion Change Avoid Specific Foods Supervision While Eating and/Drinking: Total Supervision (1:1) Foods to Avoid: Mixed consistencies. Swallowing Recommended Treatments: Oral Motor Exercises Compens. Strategy Educat. Level of Impact on: Daily activities: Moderate Education: None Employment: None Community: Moderate Prognosis for Improvement: Good Recommendation for Speech: Comment: Discharge Outpatient Services Frequency/Duration: n/a Date Range for Service Req: n/a Timeline to reassess: PRN Treatment: Pt arrives with just her Daughter. They have initiated use of thickened liquids. LOADING DOCK HAND demonstrates the IDDSI flow test to assess the consistency she has been trialing which turned out to be too thin. She reapplyed the less and was able to demonstrate back nectar thick liquids. Pt has been sporadically compliant with exercises provided, but is able to demonstrate them back on-command. Further education provided regarding the use of chin tuck not being necessary per Daughter's concern. Assessment: Plan is to discharge and re-assess with repeat MBSS. LOADING DOCK HAND will request referral from provider. Proofing Machine Operator Clinican/Clinical Fellow: No Supervisory Statement: I have reviewed and agree with the student/clinical fellow's documentation: N/A Speech Language Pathologist: Luis Enrique Mohamud M.A., CCC-LOADING DOCK HAND
== END 2023-09-22 15:48 | disposition home or self-care (01) ==
LOC: HO.SH 10:30
PROVIDERS: PCP Internal Medicine; Visit Provider Internal Medicine Pulmonary Disease
DX: T17.900A Unspecified foreign body in respiratory tract, part unspecified causing asphyxiation, initial encounter (principal)
CPT/HCPCS: 92526

== ENCOUNTER 2023-09-22 13:30 | Outpatient (AMB) | payer OTHER, SELFPAY ==
[2023-09-22 13:32] VITALS: BP 122/62; PULSE 70; O2SAT 93; BMI 35.6
--- NOTE | 2023-09-22 13:32 | MHC.OFFVIS ---
Vital Signs 09/22/23 13:32 Height 5 ft 7 in Weight 227 lb 1.218 oz BMI 35.6 BP 122/62 Blood Pressure Location Rt brachial Position Sitting Pulse 70 Pulse Source Doppler Pulse Oximetry (%) 93 Oxygen Delivery Method Nasal Cannula Oxygen Flow Rate 4 Intake Visit Reasons: cough, congestion Covid neg Allergies No Known Allergies [No Known Allergies*] Allergy (Verified 09/22/23 13:38) HPI HPI cough, congestion Covid neg: Details: 63-year-old lady, former 60+ pack-year smoker, quit 2020 now followed for supplemental oxygen dependent COPD, pulmonary aspiration, and possible obstructive sleep apnea. Patient had MBS that showed pulmonary aspiration and she is working with speech therapy on diet modification and swallowing techniques. Her 2D echocardiogram is essentially normal. Lung cancer screening CT chest is essentially normal. Patient is using albuterol MDI and Anoro with reasonable baseline control of her underlying COPD, except right after waking up. Her sleep study is essentially normal. Patient does complain another acute exacerbation symptomatic with fevers and productive cough. Patient does have underlying history of asplenia. Review of Systems Const Denies daytime sleepiness, Denies excessive sweating, Denies fatigue, Denies fever(s), Denies lethargy, Denies malaise, Denies night sweats, Denies snoring and Denies weight loss Eyes Denies blurry vision and Denies itchy eyes ENT Denies nasal congestion, Denies post nasal drip, Denies sinus pain, Denies sinus pressure and Denies other ( Thrush) Card Denies chest pain, Denies pedal edema, Denies dyspnea, Denies orthopnea and Denies paroxysmal nocturnal dyspnea Resp Reports cough, Denies hemoptysis, Reports excessive phlegm production, Denies dyspnea, Denies snoring and Denies wheezing GI Denies abdominal pain and Denies heartburn Musc Denies myalgias, Denies arthralgias and Denies joint swelling Skin/Breast Denies rash Neuro Denies memory loss and Denies seizure-like activity Psych Denies abnormal sleep pattern, Denies anxiety and Denies memory loss Endo Denies excessive sweating, Denies fatigue and Denies heat intolerance Shaq/Lymph Denies easy bruising Aller/Immun Denies itchy eyes, Denies seasonal rhinorrhea and Denies wheezing Physical Exam Vital Signs: Last Vital Signs Pulse 70 09/22/23 13:32 BP 122/62 09/22/23 13:32 Pulse Ox 93 09/22/23 13:32 Oxygen Delivery Method Nasal Cannula 09/22/23 13:32 Oxygen Flow Rate 4 09/22/23 13:32 BMI result Body Mass Index 35.6 Const General: no acute distress and alert Nutritional Appearance: not obese Orientation/consciousness: Other orientation findings ( oriented) HEENT Head: Yes atraumatic Eyes General: appearance normal, both eyes and all related structures Sclerae: sclerae normal EOM: EOMs intact bilaterally Neck Neck: Yes supple Lymphatic: no lymphadenopathy noted Resp Effort & Inspection: normal respiratory effort and no use of accessory muscles Auscultation: clear to auscultation bilaterally Cardio Rate: regular rate Rhythm: regular rhythm Heart sounds: no gallops, no murmurs and no rubs Skin General skin exam: other ( warm) Extrem General: No clubbing, No cyanosis and No edema Assessment & Plan Assessment & Plan (1) Recurrent pneumonia: Code(s): J18.9 - Pneumonia, unspecified organism Category: Medical Plan: Will treat with a course of doxycycline and obtain immunoglobulin levels. If immunoglobulin levels are normal, will consider prophylactic antibiotics. (2) ELSA (obstructive sleep apnea): Code(s): G47.33 - Obstructive sleep apnea (adult) (pediatric) Category: Medical Plan: Results of sleep study visit, does not have underlying obstructive sleep apnea. (3) COPD (chronic obstructive pulmonary disease): Code(s): J44.9 - Chronic obstructive pulmonary disease, unspecified Category: Medical Plan: Reasonable control on Anoro, duo nebs, and albuterol MDI. Continue current regimen. (4) Pulmonary aspiration: Code(s): T17.900A - Unspecified foreign body in respiratory tract, part unspecified causing asphyxiation, initial encounter Category: Medical Plan: Status post MBS with demonstration of aspiration. Continues with diet modification. (5) Supplemental oxygen dependent: Code(s): Z99.81 - Dependence on supplemental oxygen Category: Medical Plan: Continue supplemental oxygen to maintain O2 saturation of 88-92%. (6) Personal history of nicotine dependence: Code(s): Z87.891 - Personal history of nicotine dependence Category: Medical Plan: Results of screening CT chest reviewed and show no worrisome pulmonary nodules. Will continue with yearly screening. Orders: Orders Immunoglobulin G Subclasses Today J18.9 - Pneumonia, unspecified organism Immunoglobulins,IgG IgA IgM Today J18.9 - Pneumonia, unspecified organism Medications: New doxycycline monohydrate 100 mg PO BID 20 caps 0RF Discontinued amoxicillin-pot clavulanate 875-125 mg Discontinued Reason: Doctor's Order 1 tab PO BID 14 tabs 0RF azithromycin Discontinued Reason: Doctor's Order For 250 mg dose pack: take 500 mg today (day 1), then 250 mg for 4 days (days 2-5) PO 6 tabs 0RF levofloxacin Discontinued Reason: Doctor's Order 500 mg PO DAILY 7 tabs 0RF Coding Level of Care Code Est Pt Level 5 (41857) Diagnoses Recurrent pneumonia J18.9 ELSA (obstructive sleep apnea) G47.33 COPD (chronic obstructive pulmonary disease) J44.9 Pulmonary aspiration T17.900A Supplemental oxygen dependent Z99.81 Personal history of nicotine dependence Z87.891
== END 2023-09-22 13:54 | disposition home or self-care (01) ==
PROVIDERS: PCP Internal Medicine; Visit Provider Internal Medicine Pulmonary Disease
DX: J18.9 Pneumonia, unspecified organism (principal); J44.9 Chronic obstructive pulmonary disease, unspecified; Z99.81 Dependence on supplemental oxygen; Z87.891 Personal history of nicotine dependence
CPT/HCPCS: 99214

== ENCOUNTER → 2023-09-22 13:30 | Outpatient (BNVA) | payer OTHER, SELFPAY | PROVIDERS: PCP Internal Medicine; Visit Provider Internal Medicine Pulmonary Disease | DX: J44.9 Chronic obstructive pulmonary disease, unspecified (principal); J18.9 Pneumonia, unspecified organism; G47.33 Obstructive sleep apnea (adult) (pediatric); T17.900A Unspecified foreign body in respiratory tract, part unspecified causing asphyxiation, initial encounter; X58.XXXA Exposure to other specified factors, initial encounter; Z87.891 Personal history of nicotine dependence; Z99.81 Dependence on supplemental oxygen | CPT/HCPCS: 99212 ==

== ENCOUNTER 2023-10-18 10:40 | Outpatient (REF) | payer MEDICAID, SELFPAY ==
[2023-10-19 14:43] LABS: IgA 328 mg/dL (70-320); IgG 1139 mg/dL (600-1540); IgM 28 mg/dL (50-300)
[2023-10-20 14:32] LABS: Immunoglobulin G Subclass 1 610 mg/dL (382-929); Immunoglobulin G Subclass 2 259 mg/dL (241-700); Immunoglobulin G Subclass 3 118 mg/dL (22-178); Immunoglobulin G Subclass 4 30.5 mg/dL (4-86); Immunoglobulin G Total 1020 mg/dL (600-1540)
== END 2023-10-18 10:41 | disposition home or self-care (01) ==
LOC: HO.LAB 10:40
PROVIDERS: PCP Internal Medicine; Visit Provider Internal Medicine Pulmonary Disease
DX: J18.9 Pneumonia, unspecified organism (principal); J44.9 Chronic obstructive pulmonary disease, unspecified; T17.900A Unspecified foreign body in respiratory tract, part unspecified causing asphyxiation, initial encounter; Z87.891 Personal history of nicotine dependence; X58.XXXA Exposure to other specified factors, initial encounter; Y93.9 Activity, unspecified; Y92.9 Unspecified place or not applicable; Y99.9 Unspecified external cause status; Z99.81 Dependence on supplemental oxygen
CPT/HCPCS: 36415; 82784; 99212

== ENCOUNTER 2023-10-18 10:40 | Outpatient (AMB) | payer MEDICAID, SELFPAY ==
[2023-10-18 10:41] VITALS: BP 100/58; PULSE 66; O2SAT 96; BMI 35.2
--- NOTE | 2023-10-18 10:41 | A.OFFVIS_ITS ---
Vital Signs 10/18/23 10:41 Height 5 ft 7 in Weight 224 lb 13.944 oz BMI 35.2 BP 100/58 L Blood Pressure Location Rt brachial Position Sitting Pulse 66 Pulse Source Doppler Pulse Oximetry (%) 96 Oxygen Delivery Method Nasal Cannula Oxygen Flow Rate 4 Intake Visit Reasons: COPD Allergies No Known Allergies [No Known Allergies*] Allergy (Verified 09/22/23 13:38) HPI HPI COPD: Details: 63-year-old lady, former 60+ pack-year smoker, quit 2020 now followed for supple mental oxygen dependent COPD, pulmonary aspiration, and possible obstructive sleep apnea. Patient had MBS that showed pulmonary aspiration and she is working with speech therapy on diet modification and swallowing techniques. Her 2D echocardiogram is essentially normal. Lung cancer screening CT chest is essentially normal. Patient is using albuterol MDI and Anoro with reasonable baseline control of her underlying COPD, except right after waking up. Her sleep study is essentially normal. Patient does complain another acute exacerbation symptomatic with fevers and productive cough. Patient does have underlying history of asplenia. After the last office visit patient was not able to complete her immunoglobulin studies. She denies recent exacerbations. Review of Systems Const Denies daytime sleepiness, Denies excessive sweating, Denies fatigue, Denies fever(s), Denies lethargy, Denies malaise, Denies night sweats, Denies snoring and Denies weight loss Eyes Denies blurry vision and Denies itchy eyes ENT Denies nasal congestion, Denies post nasal drip, Denies sinus pain, Denies sinus pressure and Denies other ( Thrush) Card Denies chest pain, Denies pedal edema, Denies dyspnea, Denies orthopnea and Denies paroxysmal nocturnal dyspnea Resp Reports cough, Denies hemoptysis, Denies excessive phlegm production, Denies dyspnea, Denies snoring and Denies wheezing GI Denies abdominal pain and Denies heartburn Musc Denies myalgias, Denies arthralgias and Denies joint swelling Skin/Breast Denies rash Neuro Denies memory loss and Denies seizure-like activity Psych Denies abnormal sleep pattern, Denies anxiety and Denies memory loss Endo Denies excessive sweating, Denies fatigue and Denies heat intolerance Shaq/Lymph Denies easy bruising Aller/Immun Denies itchy eyes, Denies seasonal rhinorrhea and Denies wheezing Physical Exam Vital Signs: Last Vital Signs Pulse 66 09/11/24 10:41 BP 100/58 L 10/18/23 10:41 Pulse Ox 96 10/18/23 10:41 Oxygen Delivery Method Nasal Cannula 10/18/23 10:41 Oxygen Flow Rate 4 10/18/23 10:41 BMI result Body Mass Index 35.2 Const General: no acute distress and alert Nutritional Appearance: obese Orientation/consciousness: Other orientation findings ( oriented) HEENT Head: Yes atraumatic Eyes General: appearance normal, both eyes and all related structures Sclerae: sclerae normal EOM: EOMs intact bilaterally Neck Neck: Yes supple Lymphatic: no lymphadenopathy noted Resp Effort & Inspection: normal respiratory effort and no use of accessory muscles Auscultation: clear to auscultation bilaterally Cardio Rate: regular rate Rhythm: regular rhythm Heart sounds: no gallops, no murmurs and no rubs Skin General skin exam: other ( warm) Extrem General: No clubbing, No cyanosis and No edema Assessment & Plan Assessment & Plan (1) COPD (chronic obstructive pulmonary disease): Code(s): J44.9 - Chronic obstructive pulmonary disease, unspecified Category: Medical Plan: Well controlled current regimen of Anoro, duo nebs, and albuterol MDI. Continue current regimen. (2) Supplemental oxygen dependent: Code(s): Z99.81 - Dependence on supplemental oxygen Category: Medical Plan: Continue supplemental oxygen to maintain O2 saturation of 88-92%. (3) Pulmonary aspiration: Code(s): T17.900A - Unspecified foreign body in respiratory tract, part unspecified causing asphyxiation, initial encounter Category: Medical Plan: With underlying dysphagia status post MBS and diet modification. Continues to follow-up with speech therapy. (4) Personal history of nicotine dependence: Code(s): Z87.891 - Personal history of nicotine dependence Category: Medical Plan: Continue with yearly screening, next in July of 2024, ordered. (5) Recurrent pneumonia: Code(s): J18.9 - Pneumonia, unspecified organism Category: Medical Plan: Immunoglobulin studies are pending. Orders: Orders CT lung screening 07/17/24 Z87.891 - Personal history of nicotine dependence Coding Level of Care Code Est Pt Level 4 (45862) Diagnoses COPD (chronic obstructive pulmonary disease) J44.9 Supplemental oxygen dependent Z99.81 Pulmonary aspiration T17.900A Personal history of nicotine dependence Z87.891 Recurrent pneumonia J18.9
== END 2023-10-18 11:09 | disposition home or self-care (01) ==
PROVIDERS: PCP Internal Medicine; Visit Provider Internal Medicine Pulmonary Disease
DX: J44.9 Chronic obstructive pulmonary disease, unspecified (principal); Z99.81 Dependence on supplemental oxygen; T17.900A Unspecified foreign body in respiratory tract, part unspecified causing asphyxiation, initial encounter; Z87.891 Personal history of nicotine dependence; J18.9 Pneumonia, unspecified organism
CPT/HCPCS: 99214

== ENCOUNTER → 2023-10-27 10:30 | Outpatient (BNV) | payer MEDICAID, SELFPAY | PROVIDERS: PCP Internal Medicine; Visit Provider Physician Assistant Surgical | DX: R13.10 Dysphagia, unspecified (principal) | CPT/HCPCS: 74230 ==

== ENCOUNTER 2023-10-27 10:32 | Outpatient (REF) | payer MEDICAID, SELFPAY ==
--- NOTE | ~2023-10-27 | FL_ITS ---
EXAMINATION: Modified Barium Swallow CLINICAL INFORMATION: Dysphagia COMPARISON: None TECHNIQUE: Modified barium swallow was performed under lateral fluoroscopy with patient in standing position. Barium mixed with solids and liquids of different consistencies was administered by the speech pathologist. Examination was recorded in the fluoroscopy suite. FINDINGS: Laryngeal penetration is seen with multiple consistencies of liquid barium. No aspiration was observed. There is mild cricopharyngeal achalasia present. FLUOROSCOPY TIME: 1 minute 38 seconds Number of Spot Images: N/A DOSE AREA PRODUCT: 1824 uGy-m2 (microgray-meter squared) FL/FL Modified Barium Swallow IMPRESSION: 1. Laryngeal penetration is seen with multiple consistencies of barium. No subglottic aspiration was observed. 2. Mild cricopharyngeal achalasia. Refer to the speech therapy report for further clarification This procedure was performed by Momo Owens PA-C, and supervised by Dr. Bryson Electronically signed by: Mack Bryson MD 12/27/2023 10:[address] [facility]
--- NOTE | 2023-11-01 12:47 | MHC.SL.IMP ---
Date of Plan of Treatment: 10/27/23 Onset of Symptoms/Illness: 06/01/23 Date Treatment Started: 06/16/23 Admitting Diagnosis: COPD Primary Speech & Language Diagnosis: Oropharyngeal Dysphagia Reason for Today's Visit: Repeat MBSS following intervention. Pre-evaluation Dietary Consistencies: Chopped/Advanced (NDD3) Pre-evaluation Liquid Consistency: [place]-thick Oral Motor Exam Facial Symmetry: Normal for Patient Oral Expression Ability: No Impairment Is patient able to manage secretions?: Yes Is patient able to produce volitional cough?: Yes Food and Liquid Trials: Oral Impairment: Lip Closure: 1=Interlabial escape; no progression to anterior tip Oral Impairment: Tongue Control During Bolus Hold: 0=Cohesive bolus between tongue to palatal seal Oral Impairment: Bolus Preparation/Mastication: 1=Slow prolonged chewing/mashing with complete re-collection Oral Impairment: Bolus Transport/Lingual Motion: 0=Brisk tongue motion Oral Impairment: Oral Residue: 1=Trace residue lining oral structures Oral Impairment:Initiation of Pharyngeal Swallow: 3=Bolus head in pyriforms Pharyngeal Impairment: Soft Palate Elevation: 0=No bolus between soft palate (SP)/pharyngeal wall (PW) Pharyngeal Impairment: Laryngeal Elevation: 1=Partial thyroid cartilage/arytenoids to epiglottic petiole movement Pharyngeal Impairment: Anterior Hyoid Excursion: 1=Partial anterior movement Pharyngeal Impairment: Epiglottic Movement: 1=Partial inversion Pharyngeal Impairment: Laryngeal Vestibular Closure:: 1=Incomplete: narrow column air/contrast in laryngeal vestibule Pharyngeal Impairment: Pharyngeal Stripping Wave: 0=Present: complete Pharyngeal Impairment: Pharyngeal Contraction: Did not test Pharyngeal Impairment: Pharyngoesophageal Segment Openin=Complete distension and complete duration: no obstruction of flow Pharyngeal Impairment: Tongue Base (TB) Retraction: 1=Trace column of contrast/air between TB and posterior PW Pharyngeal Impairment: Pharyngeal Residue: 1=Trace residue within or on pharyngeal structures Pharyngeal Impairment: Esophageal Clearance Upright Position: Did not test Impressions and Recommendations Clinical Observations: Current (pre-evaluation) Intake/Diet: Pre-Study Functional Oral Intake Scale (FOIS): 5- Total oral intake of multiple consistencies requiring special preparation MBSImP ID: [id number] Results: Lip closure for intraoral bolus containment resulted in interlabial escape, without progression to the anterior lip. Tongue control during bolus hold maintained a cohesive bolus held between tongue to palate seal. Bolus preparation and mastication resulted in slow, prolonged chewing/mashing but with complete re-collection. Bolus transport/lingual motion was with brisk tongue motion. Oral residue was a trace, lining oral structures. Initiation of the pharyngeal swallow occurred when the bolus head was in the pyriform sinuses. Soft palate elevation resulted in no bolus between the soft palate and the pharyngeal wall. Laryngeal elevation was decreased, with partial superior movement of the thyroid cartilage/partial approximation of the arytenoids to the epiglottic petiole. Anterior hyoid excursion demonstrated partial anterior movement. Epiglottic movement resulted in complete inversion. Laryngeal vestibular closure was incomplete, with a narrow column of air/contrast noted within the laryngeal vestibule at the height of the swallow. Pharyngeal stripping wave was present and complete. Pharyngeal contraction could not be determined due to logistical reasons not related to physiologic impairment. Pharyngoesophageal segment opening was completely distended for complete duration with no obstruction of bolus flow. Tongue base retraction allowed a trace column of contrast or air between the retracted tongue base and the posterior pharyngeal wall. Pharyngeal residue was a trace within or on pharyngeal structures. Esophageal clearance in the upright position could not be assessed due to logistical reasons not related to physiologic impairment. Oral Impairment Score: 4 Pharyngeal Impairment Score: 3 (absence of score, component 13) Esophageal Impairment Score: --- (absence of score, component 17) Laryngeal Penetration and Aspiration: No aspiration was observed in today's study. Penetration was observed. [place]-thick, Thin Contrast entered the airway, remained above the vocal folds, and were ejected from the airway. Her Oral Impairment and Pharyngeal Impairment scores improved from her previous MBSS in June. Only flash penetration was observed with Thin and [place]Thick Liquids. Pt/caregiver report compliance with recommendations and exercises at home. No further treatment at this time. Repeat MBSS if problems worsen or persist. Liquid Intake Recommendation: [place] Thick Liquid Intake Strategies: No Straws Dietary Recommendations: Chopped/Advanced (NDD3) Medication Administration: Whole with Puree Please contact the pharmacy regarding appropriate crushable or liquid drug formulations that are available whenever modified delivery is recommended. Compensatory Strategies Recommended: Sitting Upright (90 deg) Liquids from Cup Small Bites and Sips Alternate Liquids/Solids Rate of Ingestion Change Avoid Specific Foods Supervision during eating and or drinking: Total Assistance (1:1) Recommended Treatments: Compens. Strategy Educat. Recommendation for Speech Therapy: Discharged with Instructions for Home Use Text Comment: Continue to recommend Soft and Bite-sized Solids (IDDSI Level 6) with [place]Thick Liquids during meals. However, able to liberalize to small sips of Thin Liquids between meals with proper oral care and aspiration precautions in place. Pt/caregiver was given the option to remove [place]Thick restriction based on today's results, however given risk of aspiration pneumonia, they opted to keep it. 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
== END 2023-10-27 10:33 | disposition home or self-care (01) ==
LOC: HO.XRAY 10:32
PROVIDERS: PCP Internal Medicine; Visit Provider Internal Medicine Pulmonary Disease
DX: T17.900A Unspecified foreign body in respiratory tract, part unspecified causing asphyxiation, initial encounter (principal)
CPT/HCPCS: 74230

== ENCOUNTER 2023-11-01 10:24 | Outpatient (REF) | payer MEDICAID, SELFPAY ==
--- NOTE | ~2023-11-01 | XR_ITS ---
EXAMINATION: XR CHEST CLINICAL INFORMATION: Chronic obstructive pulmonary disease COMPARISON: Chest radiograph 06/06/2023 TECHNIQUE: 2 views of the chest were obtained. FINDINGS: The lungs are adequately expanded. No focal consolidation. Chronic mild interstitial prominence. Streaky linear opacities in the right lung base. No pleural effusions or pneumothorax. The cardiac mediastinal silhouette is within normal limits. No acute osseous abnormality. XR/XR chest 2V IMPRESSION: No focal consolidation. Streaky linear atelectasis in the right lung base. Chronic mild interstitial prominence. Electronically signed by: Jonnie Alcocer MD 11/01/2023 02:54 PM EDT
[2023-11-01 10:49] LABS: MANUAL DIFF FLAG NO
[2023-11-01 11:33] LABS: Basophils Percent Auto 0.3 % (0-2); Eosinophils Absolute Auto 0.2 X10*3/uL (0.0-0.4); Hematocrit 37.1 % (37.0-47.0); Hemoglobin 11.3 g/dl (12.0-16.0); Imm Gran Abs Auto 0.03 X10*3/uL (0.00-0.03); Imm Gran Pct Auto 0.3 % (0.0-0.4); Lymphocytes Absolute Auto 3.6 X10*3/uL (1.2-4.9); Lymphocytes Percent Auto 39.2 % (20-40); Mean Corpuscular HGB Conc 30.5 g/dl (31.0-35.0); Mean Corpuscular Hemoglobin 27.5 pg (27.0-33.0); Mean Corpuscular Volume 90.3 fL (80.0-98.0); Mean Platelet Volume 10.2 fL (9.4-12.3); Monocytes Percent Auto 10.7 % (2-11); Neutrophils Absolute Auto 4.4 x10*3/uL (2.0-8.3); Neutrophils Percent Auto 47.5 % (45-73); Platelet Count 348 X10*3/uL (160-400); Red Blood Count 4.11 X10*6/uL (4.20-5.50); Red Cell Distribution Width 15.7 % (11.0-16.0); White Blood Count 9.3 X10*3/uL (4.8-10.8)
[2023-11-01 11:40] LABS: Estimated Average Glucose 117 mg/dL; Hemoglobin A1C 111.3903 umol/L; Hemoglobin A1c % 5.7 % (<6.0)
[2023-11-01 12:20] LABS: Alanine Aminotransferase 51 U/L (0-31); Albumin Level 3.9 g/dL (3.5-5.0); Alkaline Phosphatase 91 U/L (39-117); Anion Gap 13 (12-20); Aspartate Amino Transferase 49 U/L (5-31); Bilirubin Total 0.3 mg/dL (0.0-1.0); Blood Urea Nitrogen 15 mg/dL (9-16); Calcium 9.6 mg/dL (8.4-10.2); Carbon Dioxide 36 mmol/L (22-29); Chloride 98 mmol/L (96-108); Estimated Glomerular Filt Rate 41; Glucose Random 113 mg/dL (60-115); Potassium 4.2 mmol/L (3.3-5.1); Sodium 143 mmol/L (135-145)
== END 2023-11-01 10:25 | disposition home or self-care (01) ==
LOC: HO.XRAY 10:24
PROVIDERS: PCP Internal Medicine; Visit Provider Internal Medicine
DX: E11.9 Type 2 diabetes mellitus without complications (principal); E78.00 Pure hypercholesterolemia, unspecified; J44.9 Chronic obstructive pulmonary disease, unspecified; R07.89 Other chest pain; R09.02 Hypoxemia
CPT/HCPCS: 36415; 71046; 80053; 83036; 85025

== ENCOUNTER 2023-11-23 10:40 | Outpatient (AMB) | payer MEDICAID, SELFPAY ==
[2023-11-23 10:41] VITALS: BP 102/58; PULSE 68; O2SAT 93; BMI 34.8
--- NOTE | 2023-11-23 10:41 | A.OFFVIS_ITS ---
Vital Signs 11/23/23 10:41 Height 5 ft 7 in Weight 222 lb BMI 34.8 BP 102/58 L Blood Pressure Location Rt brachial Position Sitting Pulse 68 Pulse Source Doppler Pulse Oximetry (%) 93 Oxygen Delivery Method Nasal Cannula Oxygen Flow Rate 4 Intake Visit Reasons: COPD/PFT Follow Up Allergies No Known Allergies [No Known Allergies*] Allergy (Verified 09/22/23 13:38) HPI HPI COPD/PFT Follow Up: Details: 63-year-old lady, former 60+ pack-year smoker, quit 2020 now followed for supplemental oxygen dependent COPD, pulmonary aspiration, and possible obstructive sleep apnea. Patient had MBS that showed pulmonary aspiration and she is working with speech therapy on diet modification and swallowing techniques. Her 2D echocardiogram is essentially normal. Lung cancer screening CT chest is essentially normal. Patient is using albuterol MDI and Anoro with reasonable baseline control of her underlying COPD, except right after waking up. Her sleep study is essentially normal. Patient does have underlying history of asplenia. After the last office visit patient has completed her immunoglobulin studies showing IgM deficiency. She does complain recurrent cough productive of small amount of whitish sputum. Her most recent chest x-ray in October of 2023 essentially normal. Today patient is also complains of nausea that appears to be related to constipation and is requesting Zofran for symptomatic relief. Review of Systems Const Denies daytime sleepiness, Denies excessive sweating, Denies fatigue, Denies fever(s), Denies lethargy, Denies malaise, Denies night sweats, Denies snoring and Denies weight loss Eyes Denies blurry vision and Denies itchy eyes ENT Denies nasal congestion, Denies post nasal drip, Denies sinus pain, Denies sinus pressure and Denies other ( Thrush) Card Denies chest pain, Denies pedal edema, Denies dyspnea, Denies orthopnea and Denies paroxysmal nocturnal dyspnea Resp Reports cough, Denies hemoptysis, Denies excessive phlegm production, Denies dyspnea, Denies snoring and Denies wheezing GI Reports nausea Musc Denies myalgias, Denies arthralgias and Denies joint swelling Skin/Breast Denies rash Neuro Denies memory loss and Denies seizure-like activity Psych Denies abnormal sleep pattern, Denies anxiety and Denies memory loss Endo Denies excessive sweating, Denies fatigue and Denies heat intolerance Shaq/Lymph Denies easy bruising Aller/Immun Denies itchy eyes, Denies seasonal rhinorrhea and Denies wheezing Physical Exam Vital Signs: Last Vital Signs Pulse 68 11/23/23 10:41 BP 102/58 L 11/23/23 10:41 Pulse Ox 93 11/23/23 10:41 Oxygen Delivery Method Nasal Cannula 11/23/23 10:41 Oxygen Flow Rate 4 11/23/23 10:41 BMI result Body Mass Index 34.8 Const General: no acute distress and alert Nutritional Appearance: obese Orientation/consciousness: Other orientation findings ( oriented) HEENT Head: Yes atraumatic Eyes General: appearance normal, both eyes and all related structures Sclerae: sclerae normal EOM: EOMs intact bilaterally Neck Neck: Yes supple Lymphatic: no lymphadenopathy noted Resp Effort & Inspection: normal respiratory effort and no use of accessory muscles Auscultation: clear to auscultation bilaterally Cardio Rate: regular rate Rhythm: regular rhythm Heart sounds: no gallops, no murmurs and no rubs Skin General skin exam: other ( warm) Extrem General: No clubbing, No cyanosis and No edema Assessment & Plan Assessment & Plan (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 Will request IVIG approval. (2) COPD (chronic obstructive pulmonary disease): Code(s): J44.9 - Chronic obstructive pulmonary disease, unspecified Category: Medical Plan: Reasonable control on current regimen of Anoro, albuterol MDI, and duo nebs. Continue current regimen. (3) Personal history of nicotine dependence: Code(s): Z87.891 - Personal history of nicotine dependence Category: Medical Plan: Lung cancer screening from July of 2023 reviewed, no worrisome pulmonary nod ules. Continue with yearly screening. (4) Supplemental oxygen dependent: Code(s): Z99.81 - Dependence on supplemental oxygen Category: Medical Plan: Continue supplemental oxygen to maintain O2 saturation of 88-92%. (5) Pulmonary aspiration: Code(s): T17.900A - Unspecified foreign body in respiratory tract, part unspecified causing asphyxiation, initial encounter Category: Medical Plan: Status post modified barium swallow and speech evaluation, continues on modified diet. Medications: New ondansetron 4 mg PO Q8H PRN 15 tabs 0RF nausea and vomiting Coding Level of Care Code Est Pt Level 5 (52470) Complex EM visit Add On G2211 Diagnoses IgM deficiency D80.4 COPD (chronic obstructive pulmonary disease) J44.9 Personal history of nicotine dependence Z87.891 Supplemental oxygen dependent Z99.81 Pulmonary aspiration T17.900A
== END 2023-11-23 11:09 | disposition home or self-care (01) ==
PROVIDERS: PCP Internal Medicine; Visit Provider Internal Medicine Pulmonary Disease
DX: J44.9 Chronic obstructive pulmonary disease, unspecified (principal); D80.4 Selective deficiency of immunoglobulin M [IgM]; Z87.891 Personal history of nicotine dependence; Z99.81 Dependence on supplemental oxygen; T17.900A Unspecified foreign body in respiratory tract, part unspecified causing asphyxiation, initial encounter
CPT/HCPCS: 99214

== ENCOUNTER → 2023-11-23 10:40 | Outpatient (BNVA) | payer MEDICAID, SELFPAY | PROVIDERS: PCP Internal Medicine; Visit Provider Internal Medicine Pulmonary Disease | DX: J44.9 Chronic obstructive pulmonary disease, unspecified (principal); D80.4 Selective deficiency of immunoglobulin M [IgM]; T17.900A Unspecified foreign body in respiratory tract, part unspecified causing asphyxiation, initial encounter; X58.XXXA Exposure to other specified factors, initial encounter; Z99.81 Dependence on supplemental oxygen; Z87.891 Personal history of nicotine dependence | CPT/HCPCS: 99212 ==

== ENCOUNTER 2023-12-14 09:26 | Outpatient (AMB) | payer MEDICAID, SELFPAY ==
[2023-12-14 09:27] VITALS: BP 100/58; PULSE 67; O2SAT 95; BMI 35.5
--- NOTE | 2023-12-14 09:27 | MHC.OFFVIS ---
Vital Signs 12/14/23 09:27 Height 5 ft 7 in Weight 227 lb BMI 35.5 BP 100/58 L Blood Pressure Location Rt brachial Position Sitting Pulse 67 Pulse Source Doppler Pulse Oximetry (%) 95 Oxygen Delivery Method Room Air Intake Visit Reasons: Prod cough/ L sided chest pain Allergies No Known Allergies [No Known Allergies*] Allergy (Verified 12/14/23 09:33) HPI HPI Prod cough/ L sided chest pain: Details: 63-year-old lady, former 60+ pack-year smoker, quit 2020 now followed for supplemental oxygen dependent COPD, pulmonary aspiration, and possible obstructive sleep apnea. Patient had MBS that showed pulmonary aspiration and she is working with speech therapy on diet modification and swallowing techniques. Her 2D echocardiogram is essentially normal. Lung cancer screening CT chest is essentially normal. Patient is using albuterol MDI and Anoro with reasonable baseline control of her underlying COPD, except right after waking up. Her sleep study is essentially normal. Patient does have underlying history of asplenia. After the last office visit patient was approved for IVIg therapy, however she has not started it yet. Today she presents complaining of acute exacerbation symptomatic with cough productive of yellowish sputum. Review of Systems Const Denies daytime sleepiness, Denies excessive sweating, Denies fatigue, Denies fever(s), Denies lethargy, Denies malaise, Denies night sweats, Denies snoring and Denies weight loss Eyes Denies blurry vision and Denies itchy eyes ENT Denies nasal congestion, Denies post nasal drip, Denies sinus pain, Denies sinus pressure and Denies other ( Thrush) Card Denies chest pain, Denies pedal edema, Denies dyspnea, Denies orthopnea and Denies paroxysmal nocturnal dyspnea Resp Reports cough, Denies hemoptysis, Reports excessive phlegm production, Denies dyspnea, Denies snoring and Denies wheezing GI Denies abdominal pain and Denies heartburn Musc Denies myalgias, Denies arthralgias and Denies joint swelling Skin/Breast Denies rash Neuro Denies memory loss and Denies seizure-like activity Psych Denies abnormal sleep pattern, Denies anxiety and Denies memory loss Endo Denies excessive sweating, Denies fatigue and Denies heat intolerance Shaq/Lymph Denies easy bruising Aller/Immun Denies itchy eyes, Denies seasonal rhinorrhea and Denies wheezing Physical Exam Vital Signs: Last Vital Signs Pulse 67 12/14/23 09:27 BP 100/58 L 12/14/23 09:27 Pulse Ox 95 12/14/23 09:27 Oxygen Delivery Method Room Air 12/14/23 09:27 BMI result Body Mass Index 35.5 Const General: no acute distress and alert Nutritional Appearance: not obese Orientation/consciousness: Other orientation findings ( oriented) HEENT Head: Yes atraumatic Eyes General: appearance normal, both eyes and all related structures Sclerae: sclerae normal EOM: EOMs intact bilaterally Neck Neck: Yes supple Lymphatic: no lymphadenopathy noted Resp Effort & Inspection: normal respiratory effort and no use of accessory muscles Auscultation: crackles (Left-sided) Cardio Rate: regular rate Rhythm: regular rhythm Heart sounds: no gallops, no murmurs and no rubs Skin General skin exam: other ( warm) Extrem General: No clubbing, No cyanosis and No edema Assessment & Plan Assessment & Plan (1) COPD (chronic obstructive pulmonary disease): Code(s): J44.9 - Chronic obstructive pulmonary disease, unspecified Category: Medical Plan: Baseline controlled on Anoro, duo nebs, and albuterol MDI. Now with bronchitic exacerbation, will treat with a course of Levaquin. 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 Scheduled to start this months. (3) Supplemental oxygen dependent: Code(s): Z99.81 - Dependence on supplemental oxygen Category: Medical Plan: Continue supplemental oxygen to maintain O2 saturation of 88-92%. (4) Pulmonary aspiration: Code(s): T17.900A - Unspecified foreign body in respiratory tract, part unspecified causing asphyxiation, initial encounter Category: Medical Plan: Continues with diet modification. (5) Recurrent pneumonia: Code(s): J18.9 - Pneumonia, unspecified organism Category: Medical Plan: Now with another episode of recurrent pneumonia, will treat with a course of Levaquin, expect to improve with IVIG therapy. (6) Personal history of nicotine dependence: Code(s): Z87.891 - Personal history of nicotine dependence Category: Medical Plan: Continue with yearly screening, next in July of 2024. Medications: New levofloxacin 750 mg PO DAILY 7 tabs 0RF Discontinued levofloxacin Discontinued Reason: Doctor's Order 750 mg PO DAILY 7 tabs 0RF Coding Level of Care Code Est Pt Level 5 (54669) Complex EM visit Add On G2211 Diagnoses COPD (chronic obstructive pulmonary disease) J44.9 IgM deficiency D80.4 Supplemental oxygen dependent Z99.81 Pulmonary aspiration T17.900A Recurrent pneumonia J18.9 Personal history of nicotine dependence Z87.891
== END 2023-12-14 09:40 | disposition home or self-care (01) ==
LOC: HO.HPS 09:26
PROVIDERS: PCP Internal Medicine; Visit Provider Internal Medicine Pulmonary Disease
DX: J44.9 Chronic obstructive pulmonary disease, unspecified (principal); Z99.81 Dependence on supplemental oxygen; D80.4 Selective deficiency of immunoglobulin M [IgM]; T17.900A Unspecified foreign body in respiratory tract, part unspecified causing asphyxiation, initial encounter; J18.9 Pneumonia, unspecified organism; Z87.891 Personal history of nicotine dependence
CPT/HCPCS: 99214

== ENCOUNTER → 2023-12-14 09:26 | Outpatient (BNVA) | payer MEDICAID, SELFPAY | PROVIDERS: PCP Internal Medicine; Visit Provider Internal Medicine Pulmonary Disease | DX: J44.9 Chronic obstructive pulmonary disease, unspecified (principal); D80.4 Selective deficiency of immunoglobulin M [IgM]; J18.9 Pneumonia, unspecified organism; T17.900D Unspecified foreign body in respiratory tract, part unspecified causing asphyxiation, subsequent encounter; Z87.891 Personal history of nicotine dependence; Z99.81 Dependence on supplemental oxygen | CPT/HCPCS: 99212 ==

== ENCOUNTER 2024-01-25 10:40 | Outpatient (REF) | payer MEDICAID, SELFPAY ==
[2024-01-25 10:56] LABS: MANUAL DIFF FLAG NO
[2024-01-25 11:49] LABS: Basophils Percent Auto 0.7 % (0-2); Eosinophils Absolute Auto 0.2 X10*3/uL (0.0-0.4); Eosinophils Percent Auto 3.7 % (0-4); Hematocrit 37.1 % (37.0-47.0); Hemoglobin 11.3 g/dl (12.0-16.0); Imm Gran Abs Auto 0.03 X10*3/uL (0.00-0.03); Imm Gran Pct Auto 0.5 % (0.0-0.4); Lymphocytes Percent Auto 50.4 % (20-40); Mean Corpuscular HGB Conc 30.5 g/dl (31.0-35.0); Mean Corpuscular Hemoglobin 26.5 pg (27.0-33.0); Mean Corpuscular Volume 87.1 fL (80.0-98.0); Mean Platelet Volume 9.5 fL (9.4-12.3); Monocytes Absolute Auto 0.8 X10*3/uL (0.1-1.2); Monocytes Percent Auto 13.6 % (2-11); Neutrophils Absolute Auto 1.9 x10*3/uL (2.0-8.3); Neutrophils Percent Auto 31.1 % (45-73); Platelet Count 367 X10*3/uL (160-400); Red Blood Count 4.26 X10*6/uL (4.20-5.50); Red Cell Distribution Width 14.6 % (11.0-16.0)
[2024-01-25 11:56] LABS: Estimated Average Glucose 126 mg/dL; Hemoglobin A1C 122.0458 umol/L; Total Hemoglobin (HGBA1C) 2874.8181 umol/L
[2024-01-25 12:37] LABS: Alanine Aminotransferase 29 U/L (0-31); Albumin Level 3.6 g/dL (3.5-5.0); Alkaline Phosphatase 97 U/L (39-117); Anion Gap 10 (12-20); Aspartate Amino Transferase 35 U/L (5-31); Bilirubin Total 0.2 mg/dL (0.0-1.0); Blood Urea Nitrogen 19 mg/dL (9-16); Calcium 8.7 mg/dL (8.4-10.2); Carbon Dioxide 35 mmol/L (22-29); Chloride 100 mmol/L (96-108); Estimated Glomerular Filt Rate 48; Glucose Random 122 mg/dL (60-115); Magnesium 2.2 mg/dL (1.6-2.6); Potassium 3.8 mmol/L (3.3-5.1); Sodium 141 mmol/L (135-145); Total Protein 7.8 g/dL (6.5-8.0)
[2024-01-25 12:56] LABS: Ferritin 26 ng/mL (10-250)
== END 2024-01-25 10:41 | disposition home or self-care (01) ==
LOC: HO.LAB 10:40
PROVIDERS: PCP Internal Medicine; Visit Provider Internal Medicine
DX: D64.9 Anemia, unspecified (principal); E11.9 Type 2 diabetes mellitus without complications; K59.00 Constipation, unspecified; N18.9 Chronic kidney disease, unspecified; R09.02 Hypoxemia; R11.0 Nausea; R74.01 Elevation of levels of liver transaminase levels
CPT/HCPCS: 36415; 80053; 82728; 83036; 83735; 85025

== ENCOUNTER 2024-01-26 09:50 | Outpatient (REF) | payer MEDICAID, SELFPAY ==
--- NOTE | 2024-01-26 09:55 | PFT_ITS ---
Flows: FEV1: 78 % of predicted at 2.09 L FVC: 79 % of predicted at 2.71 L FEV1/FVC: 77 % Bronchodilator response: Present Volumes: Total lung capacity: 74 % of predicted at 4.20 L Residual volume: 78 % of predicted at 1.54 L Slow vital capacity: 72 % of predicted at 2.66 L Expiratory reserve volume: 0 % of predicted at 0 L Diffusion capacity: Mildly decreased, corrects to normal after adjustment for alveolar ventilation. Impression: Combined moderate reversible obstructive and moderate restrictive ventilatory defects with positive bronchodilator response. Decreased expiratory reserve volume suggests extrathoracic restriction likely secondary to abdominal obesity. Decreased diffusion capacity suggests emphysema. MTDD
[2024-01-26 10:25] VITALS: PULSE 73; O2SAT 94
== END 2024-01-26 09:51 | disposition home or self-care (01) ==
LOC: HO.RESP 09:50
PROVIDERS: PCP Internal Medicine; Visit Provider Internal Medicine Pulmonary Disease
DX: J44.9 Chronic obstructive pulmonary disease, unspecified (principal)
CPT/HCPCS: 94010; 94640; 94727; 94729

== ENCOUNTER → 2024-01-26 09:55 | Outpatient (BNV) | payer MEDICAID, SELFPAY | PROVIDERS: PCP Internal Medicine; Visit Provider Internal Medicine Pulmonary Disease | DX: J44.9 Chronic obstructive pulmonary disease, unspecified (principal) | CPT/HCPCS: 94060; 94727; 94729 ==

== ENCOUNTER 2024-02-22 08:55 | Outpatient (AMB) | payer MEDICAID, SELFPAY ==
[2024-02-22 09:00] VITALS: BP 98/58; PULSE 71; O2SAT 88; BMI 38.0
--- NOTE | 2024-02-22 09:00 | MHC.OFFVIS ---
Vital Signs 02/22/24 09:00 Height 5 ft 7 in Weight 242 lb 8.136 oz BMI 38.0 BP 98/58 L Blood Pressure Location Rt brachial Position Sitting Pulse 71 Pulse Source Doppler Pulse Oximetry (%) 88 L Oxygen Delivery Method Nasal Cannula Oxygen Flow Rate 4 Intake Visit Reasons: COPD/PFT Allergies No Known Allergies [No Known Allergies*] Allergy (Verified 12/14/23 09:33) HPI HPI COPD/PFT: Details: 64-year-old lady, former 60+ pack-year smoker, quit 2020 now followed for supplemental oxygen dependent COPD, pulmonary aspiration, and orthopnea. Patient had MBS that showed pulmonary aspiration and she is working with speech therapy on diet modification and swallowing techniques. Her 2D echocardiogram is essentially normal. Lung cancer screening CT chest is essentially normal. Patient is using albuterol MDI and Anoro with reasonable baseline control of her underlying COPDHer sleep study is essentially normal. Patient does have underlying history of asplenia. After the last office visit patient started on IVIG therapy. Today she complains of slowly worsening orthopnea, dyspnea on exertion, and lower extremity swelling. She also has gained approximately 15 lb since last visit. Review of Systems Const Denies daytime sleepiness, Denies excessive sweating, Denies fatigue, Denies fever(s), Denies lethargy, Denies malaise, Denies night sweats, Denies snoring and Denies weight loss Eyes Denies blurry vision and Denies itchy eyes ENT Denies nasal congestion, Denies post nasal drip, Denies sinus pain, Denies sinus pressure and Denies other ( Thrush) Card Denies chest pain, Reports pedal edema, Denies dyspnea, Reports dyspnea on exertion, Reports orthopnea and Denies paroxysmal nocturnal dyspnea Resp Denies cough, Denies hemoptysis, Denies excessive phlegm production, Denies dyspnea, Reports dyspnea on exertion, Denies snoring and Denies wheezing GI Denies abdominal pain and Denies heartburn Musc Denies myalgias, Denies arthralgias and Denies joint swelling Skin/Breast Denies rash Neuro Denies memory loss and Denies seizure-like activity Psych Denies abnormal sleep pattern, Denies anxiety and Denies memory loss Endo Denies excessive sweating, Denies fatigue and Denies heat intolerance Shaq/Lymph Denies easy bruising Aller/Immun Denies itchy eyes, Denies seasonal rhinorrhea and Denies wheezing Physical Exam Vital Signs: Last Vital Signs Pulse 71 02/22/24 09:00 BP 98/58 L 02/22/24 09:00 Pulse Ox 88 L 02/22/24 09:00 Oxygen Delivery Method Nasal Cannula 02/22/24 09:00 Oxygen Flow Rate 4 02/22/24 09:00 BMI result Body Mass Index 38.0 Const General: no acute distress and alert Nutritional Appearance: obese Orientation/consciousness: Other orientation findings ( oriented) HEENT Head: Yes atraumatic Eyes General: appearance normal, both eyes and all related structures Sclerae: sclerae normal EOM: EOMs intact bilaterally Neck Neck: Yes supple Lymphatic: no lymphadenopathy noted Resp Effort & Inspection: normal respiratory effort and no use of accessory muscles Auscultation: clear to auscultation bilaterally Cardio Rate: regular rate Rhythm: regular rhythm Heart sounds: no gallops, no murmurs and no rubs Skin General skin exam: other ( warm) Extrem General: No clubbing, No cyanosis and Yes edema (1+ bilateral) Assessment & Plan Assessment & Plan (1) COPD (chronic obstructive pulmonary disease): Code(s): J44.9 - Chronic obstructive pulmonary disease, unspecified Category: Medical (2) Pulmonary aspiration: Code(s): T17.900A - Unspecified foreign body in respiratory tract, part unspecified causing asphyxiation, initial encounter Category: Medical (3) Supplemental oxygen dependent: Code(s): Z99.81 - Dependence on supplemental oxygen Category: Medical (4) Recurrent pneumonia: Code(s): J18.9 - Pneumonia, unspecified organism Category: Medical (5) Personal history of nicotine dependence: Code(s): Z87.891 - Personal history of nicotine dependence Category: Medical (6) 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 Continue current regimen. Also, with worsening orthopnea dyspnea on exertion and lower extremity edema, will increase Lasix to 40 mg daily for next 7 days and reassess symptoms. Results of lung cancer screening CT chest from July of 2023 reviewed, no worrisome nodules, continue with yearly screening, next in July of 2024, ordered. Patient continues on IVIG for her underlying IgM deficiency and history of recurrent pneumonias. She also continues with modified diet for her history of recurrent aspirations. Coding Level of Care Code Est Pt Level 5 (68409) Complex EM visit Add On G2211 Diagnoses COPD (chronic obstructive pulmonary disease) J44.9 Pulmonary aspiration T17.900A Supplemental oxygen dependent Z99.81 Recurrent pneumonia J18.9 Personal history of nicotine dependence Z87.891 IgM deficiency D80.4 Orthopnea R06.01
== END 2024-02-22 09:29 | disposition home or self-care (01) ==
PROVIDERS: PCP Internal Medicine; Visit Provider Internal Medicine Pulmonary Disease
DX: J44.9 Chronic obstructive pulmonary disease, unspecified (principal); T17.900A Unspecified foreign body in respiratory tract, part unspecified causing asphyxiation, initial encounter; Z99.81 Dependence on supplemental oxygen; J18.9 Pneumonia, unspecified organism; Z87.891 Personal history of nicotine dependence; D80.4 Selective deficiency of immunoglobulin M [IgM]; R06.01 Orthopnea
CPT/HCPCS: 99214

== ENCOUNTER → 2024-02-22 08:55 | Outpatient (BNVA) | payer MEDICAID, SELFPAY | PROVIDERS: PCP Internal Medicine; Visit Provider Internal Medicine Pulmonary Disease | DX: J44.9 Chronic obstructive pulmonary disease, unspecified (principal); J18.9 Pneumonia, unspecified organism; R06.01 Orthopnea; T17.900A Unspecified foreign body in respiratory tract, part unspecified causing asphyxiation, initial encounter; Z99.81 Dependence on supplemental oxygen; Z87.891 Personal history of nicotine dependence; D80.4 Selective deficiency of immunoglobulin M [IgM] | CPT/HCPCS: 99212 ==

== ENCOUNTER 2024-06-12 11:46 | Outpatient (REF) | payer MEDICAID, SELFPAY ==
--- NOTE | ~2024-06-12 | XR_ITS ---
CLINICAL HISTORY: FELL,PAIN --- Additional Notes or Special Instructions: WO Left shoulder three views Comparison: None Findings: No acute fracture or dislocation identified. Degenerative change glenohumeral joint. Degenerative change acromioclavicular joint. No radiopaque foreign body noted. Impression: No acute bony abnormality This document has been electronically signed by: Meliton Magaña MD on 06/12/2024 18:50:09
--- NOTE | ~2024-06-12 | XR_ITS ---
CLINICAL HISTORY: PAIN,FELL Left humerus two views Comparison: None Findings: No acute fracture or dislocation identified. No acute focal bony abnormality. No radiopaque foreign body noted. Impression: No acute bony abnormality This document has been electronically signed by: Meliton Magaña MD on 06/12/2024 18:48:22
--- OUTSIDE RECORDS SUMMARY | 2024-06-12 13:10 | XMS_ITS | Clinical Summary ---
Author Organization 175 [facility] Address 175 [place] [address] Phone Care Team Providers Care Pump Stitcher Name Role Phone Physician, Pcp Unknown Primary Care Provider Michaela vailable Allergies No known active allergies Encounters Date Type Department Care Team Description 05/02/2024 10:15 AM EDT Office Visit Orthopedic Surgery [facility] [address] [phone] Valentin Cordova DPM Hypertrophy of nail (Primary Dx); Ingrowing nail; Dermatophytosis of nail; Diabetic mononeuropathy simplex ([facility] V24, [facility] V28) from Last 3 Months Social History Tobacco Use Types Packs/Day Years Used Date Smoking Tobacco: Never Assessed Comments Unknown Sex and Gender Information Value Date Recorded Sex Assigned at Not on file Legal Sex Female 5:25 AM EST Gender Identity Not on file Sexual Orientation Not on file Last Filed Vital Signs Vital Sign Reading Time Taken Comments Blood Pressure - - Pulse - - Temperature - - Respiratory Rate - - Oxygen Saturation - - Inhaled Oxygen Concentration - - Weight 104 kg (230 lb) 05/02/2024 10:14 AM EDT Height 170.2 cm (5' 7 ) 05/02/2024 10:14 AM EDT Body Mass Index 36.02 05/02/2024 10:14 AM EDT Plan of Treatment Upcoming Encounters Date Type Department Care Team (Late st Contact Info) Description 08/01/2024 9:15 AM EDT Office Visit Orthopedic Surgery [facility] [address] [phone] Valentin Cordova DPM [address] [phone] Health Maintenance Due Date Last Done Comments Diabetes: Annual Foot Exam 02/11/1972 Diabetes: Annual Retina Eye Exam 02/11/1972 Meningococcal B Vaccine (1 of 5 - Increased Risk) 02/11/1972 Hepatitis A Vaccines (1 of 2 - Risk 2-dose series) 1981 Cervical Cancer Screening: Pap Smear 1983 Diabetes: Annual GFR (Glomerular Filtration Rate) 03/10/2004 03/10/2003 Meningococcal ACWY Vaccine (2 - Risk 2-dose series) 11/21/2007 09/26/2007 Zoster Vaccines (1 of 2) 02/11/2012 Hepatitis B Vaccines (2 of 3 - Risk 3-dose series) 01/05/2015 12/08/2014 Pneumococcal Vaccine: 50+ Years (3 of 3 - PCV) 01/18/2019 01/18/2018, 02/25/2015, 09/26/2007, Additional history exists Pneumococcal Vaccine: Pediatrics (0 to 5 Years) and At-Risk Patients (6 to 64 Years) (3 of 3 - PCV) 01/18/2019 01/18/2018, 02/25/2015, 09/26/2007, Additional history exists RSV Immunization Adult Patients (1 - Risk 60-74 years 1-dose series) 2022 Cholesterol Screening (Lipid Panel) 09/05/2023 Colorectal Cancer Screening: Colonoscopy 09/05/2023 Depression Screening 09/05/2023 HIV Screening 09/05/2023 Hepatitis C Screening 09/05/2023 Social Influencers of Health Screening 09/05/2023 COVID-19 Vaccine ( season) 2023 Diabetes: Annual Urine Albumin-Creatinine Ratio (uACR) 05/02/2024 Diabetes: Blood Sugar Control Test (HGBA1C) 05/02/2024 Influenza Vaccine (Season Ended) 2024 12/27/2020, 01/01/2018, 12/11/2016, Additional history exists Breast Cancer Screening 06/21/2025 06/22/2023 DTaP,Tdap,and Td Vaccines (3 - Td or Tdap) 08/08/2028 08/08/2018, 04/13/2015 HIB Vaccines Completed 09/26/2007 HPV Vaccines Aged Out No longer eligi ble based on patient's age to complete this topic IPV Vaccines Aged Out No longer eligi ble based on patient's age to complete this topic MMR Vaccines Aged Out No longer eligi ble based on patient's age to complete this topic RSV Immunization Patients Under 20 months Aged Out No longer eligible based on patient's age to complete this topic Varicella Vaccines Aged Out No longer eligible based on patient's age to complete this topic Procedures Procedure Name Priority Date/Time Associated Diagnosis Comments PRISCILLA SCREENING DIGITAL Routine 06/22/2023 3:49 PM EDT Encounter for screening mammogram for malignant neoplasm of breast ANNUAL BMP BLOOD TEST Routine 03/10/2003 from Last 3 Months or Most Recently Relevant to Health Maintenance Results * PRISCILLA SCREENING DIGITAL (06/22/2023 3:49 PM EDT) Anatomical Region Laterality Modality Mammography 06/22/2023 11:1 5 AM EDT Narrative 06/22/2023 3:[address] [facility] Diagnostic Imaging Department [address] [place], [place] [id number] Patient: ??JOSEPHINE ASH ?/Age/Sex: 1960 - 63 - F Unit#: ??[id number] ? Location/Status: ??SPDIMAM/REG CLI ? Mnemonic/Ordering Site: ??DIGSC/SPMAM Ordering Physician: ??RHONDA COX MD Priscilla Screening Digital - 06/22/23 - 1136 Report Status:Signed EXAM: [facility] Screening Digital EXAM DATE AND TIME: 06/22/2023 11:37 AM HISTORY: ??Screening. COMPARISON: ??05/24/16, 05/12/16 outside studies TECHNIQUE: Bilateral digital breast tomosynthesis was performed in the CC and MLO projections. Computer aided detection with [employer] 3D 3.1 was employed. TISSUE DENSITY: a. The breasts are almost entirely fatty. FINDINGS: No suspicious masses, grouped microcalcifications, or areas of architectural distortion are seen. The skin and vascularity are unremarkable. IMPRESSION: Stable mammographic appearance of the breasts. ??No evidence of malignancy is seen. A negative mammogram in the presence of a clinically suspicious palpable abnormality does not preclude the possibility of malignancy or alter the indications for biopsy. BI-RADS: ??Category 1: Negative RECOMMENDATION(S): 1: Routine screening mammogram BILATERAL in 1 year. Dictating Physician: ??GWEN CASTREJON MD Electronically Signed by: ??GWEN CASTREJON MD Dic Date/Time: ??06/22/23 1549 Sign date/Time: ??06/22/23 1549 Procedure Note Gwen Castrejon MD - 09/25/2023 [facility] Diagnostic Imaging Department [address] [place] [address] Patient: JOSEPHINE ASH D.O.B./Age/Sex: 1960 - 63 - F Unit#: [id number] Location/Status: [facility]/REG CLI Mnemonic/Ordering Site: [facility] Ordering Physician: RHONDA OCX MD Priscilla Screening Digital - 06/22/23 - 1136 Report Status:Signed EXAM: [facility] Screening Digital EXAM DATE AND TIME: 06/22/2023 11:37 AM HISTORY: Screening. COMPARISON: 05/24/16, 05/12/16 outside studies TECHNIQUE: Bilateral digital breast tomosynthesis was performed in the CCand MLO projections. Computer aided detection with [employer] 3D 3.1was employed. TISSUE DENSITY: a. The breasts are almost entirely fatty. FINDINGS: No suspicious masses, grouped microcalcifications, or areas ofarchitectural distortion are seen. The skin and vascularity are unremarkable. IMPRESSION: Stable mammographic appearance of the breasts. No evidence of malignancyis seen. A negative mammogram in the presence of a clinically suspicious palpable abnormality does not preclude the possibility of malignancy or alter the indications for biopsy. BI-RADS: Category 1: Negative RECOMMENDATION(S): 1: Routine screening mammogram BILATERAL in 1 year. Dictating Physician: GWEN CASTREJON MD Electronically Signed by: GWEN CASTREJON MD Dic Date/Time: 06/22/23 1549 Sign date/Time: 06/22/23 1549 us Rhonda Cox MD IMG BI PROCEDURES Final Resul t * Annual BMP Blood Test (03/10/2003) Annual BMP Blood Test abstracted us Historical Provider HEALTH MAINTENANCE Final Result from Last 3 Months or Most Recently Relevant to Health Maintenance Care Teams Pump Stitcher Relationship Specialty Start Date End Date Physician, Pcp Unknown PCP - General 02/08/24
== END 2024-06-12 11:47 | disposition home or self-care (01) ==
LOC: HO.XRAY 11:46
PROVIDERS: PCP Internal Medicine; Visit Provider Internal Medicine
DX: M79.602 Pain in left arm (principal); Z91.81 History of falling
CPT/HCPCS: 73030; 73060

== ENCOUNTER → 2024-06-12 11:54 | Outpatient (BNV) | payer MEDICAID, SELFPAY | PROVIDERS: PCP Internal Medicine; Visit Provider Radiology Diagnostic Radiology | DX: M25.512 Pain in left shoulder (principal); M79.622 Pain in left upper arm; W19.XXXA Unspecified fall, initial encounter | CPT/HCPCS: 73030; 73060 ==

== ENCOUNTER 2024-06-21 13:05 | Outpatient (AMB) | payer MEDICAID, SELFPAY ==
[2024-06-21 13:06] VITALS: BP 102/62; PULSE 67; O2SAT 93; BMI 37.3
--- NOTE | 2024-06-21 13:06 | MHC.OFFVIS ---
Vital Signs 06/21/24 13:06 Height 5 ft 7 in Weight 238 lb BMI 37.3 BP 102/62 Blood Pressure Location Rt brachial Position Sitting Pulse 67 Pulse Source Pulse Oximeter Pulse Oximetry (%) 93 Oxygen Delivery Method Nasal Cannula Oxygen Flow Rate 4 Intake Visit Reasons: COPD Allergies No Known Allergies [No Known Allergies*] Allergy (Verified 06/21/24 13:14) HPI HPI COPD: Details: 64-year-old lady, former 60+ pack-year smoker, quit 2020 now followed for supplemental oxygen dependent COPD, pulmonary aspiration, and orthopnea. Patient had MBS that showed pulmonary aspiration and she is working with speech therapy on diet modification and swallowing techniques. Her 2D echocardiogram is essentially normal. Lung cancer screening CT chest is essentially normal. Patient is using albuterol MDI and Anoro with reasonable baseline control of her underlying COPDHer sleep study is essentially normal. Patient does have underlying history of asplenia. She continues on IVIG therapy with significantly decreased frequency of pulmonary infections. At the last office visit she was started on diuretic regimen and now has significantly improved control of her orthopnea and lower extremity edema. She denies recent exacerbations. [facility] Surgical History (Updated 06/18/24 @ 10:53 by Savanna Oates CMA) Hx of cholecystectomy Hx of appendectomy Hx of splenectomy Family History (Updated 06/18/24 @ 10:54 by Savanna Oates CMA) Mother Heart problem Father Family history unknown Daughter No problems noted. Daughter No problems noted. Son No problems noted. Son No problems noted. Social History (Updated 06/18/24 @ 10:54 by Savanna Oates CMA) Alcohol intake: never Patient Tobacco Use Status: Never used Tobacco Review of Systems Const Denies daytime sleepiness, Denies excessive sweating, Denies fatigue, Denies fever(s), Denies lethargy, Denies malaise, Denies night sweats, Denies snoring and Denies weight loss Eyes Denies blurry vision and Denies itchy eyes ENT Denies nasal congestion, Denies post nasal drip, Denies sinus pain, Denies sinus pressure and Denies other ( Thrush) Card Denies chest pain, Denies pedal edema, Denies dyspnea, Denies orthopnea and Denies paroxysmal nocturnal dyspnea Resp Denies cough, Denies hemoptysis, Denies excessive phlegm production, Denies dyspnea, Denies snoring and Denies wheezing GI Denies abdominal pain and Denies heartburn Musc Denies myalgias, Denies arthralgias and Denies joint swelling Skin/Breast Denies rash Neuro Denies memory loss and Denies seizure-like activity Psych Denies abnormal sleep pattern, Denies anxiety and Denies memory loss Endo Denies excessive sweating, Denies fatigue and Denies heat intolerance Shaq/Lymph Denies easy bruising Aller/Immun Denies itchy eyes, Denies seasonal rhinorrhea and Denies wheezing Physical Exam Vital Signs: Last Vital Signs Pulse 67 06/21/24 13:06 BP 102/62 06/21/24 13:06 Pulse Ox 93 06/21/24 13:06 Oxygen Delivery Method Nasal Cannula 06/21/24 13:06 Oxygen Flow Rate 4 06/21/24 13:06 BMI result Body Mass Index 37.3 Const General: no acute distress and alert Nutritional Appearance: obese Orientation/consciousness: Other orientation findings ( oriented) HEENT Head: Yes atraumatic Eyes General: appearance normal, both eyes and all related structures Sclerae: sclerae normal EOM: EOMs intact bilaterally Neck Neck: Yes supple Lymphatic: no lymphadenopathy noted Resp Effort & Inspection: normal respiratory effort and no use of accessory muscles Auscultation: clear to auscultation bilaterally Cardio Rate: regular rate Rhythm: regular rhythm Heart sounds: no gallops, no murmurs and no rubs Skin General skin exam: other ( warm) Extrem General: No clubbing, No cyanosis and No edema Assessment & Plan Assessment & Plan (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 Continue IVIG. (2) Supplemental oxygen dependent: Code(s): Z99.81 - Dependence on supplemental oxygen Category: Medical Plan: Continue supplemental oxygen to maintain O2 saturation of 89-93%. (3) Pulmonary aspiration: Code(s): T17.900A - Unspecified foreign body in respiratory tract, part unspecified causing asphyxiation, initial encounter Category: Medical Plan: Significantly improved with diet modification. (4) COPD (chronic obstructive pulmonary disease): Code(s): J44.9 - Chronic obstructive pulmonary disease, unspecified Category: Medical Plan: Well controlled on current regimen of Anoro and albuterol MDI. Continue current regimen. (5) Personal history of nicotine dependence: Code(s): Z87.891 - Personal history of nicotine dependence Category: Medical Plan: Continue with yearly screening, next in July of 2024, ordered. (6) Orthopnea: Code(s): R06.01 - Orthopnea Category: Medical Plan: Improved significantly on current diuretic regimen of furosemide 40 mg daily. Continue current regimen. Coding Level of Care Code Est Pt Level 5 (38992) Complex EM visit Add On G2211 Diagnoses IgM deficiency D80.4 Supplemental oxygen dependent Z99.81 Pulmonary aspiration T17.900A COPD (chronic obstructive pulmonary disease) J44.9 Personal history of nicotine dependence Z87.891 Orthopnea R06.01
--- OUTSIDE RECORDS SUMMARY | 2024-06-21 13:07 | XMS_ITS | Clinical Summary ---
Author Organization 175 [facility] Address [address] [place] [address] Phone Care Team Providers Care Radar Engineer Name Role Phone Physician, Pcp Unknown Primary Care Provider Michaela vailable Allergies No known active allergies Encounters Date Type Department Care Team Description 05/02/2024 10:15 AM EDT Office Visit Orthopedic Surgery [facility] [address] [phone] Valentin Cordova DPM Hypertrophy of nail (Primary Dx); Ingrowing nail; Dermatophytosis of nail; Diabetic mononeuropathy simplex ([facility] V24, [facility] V28) from Last 3 Months Social History [...] 9:15 AM EDT Office Visit Orthopedic Surgery [facility] [address] [phone] Valentin Cordova DPM [address] [phone] Health Maintenance Due Date Last Done Comments [...] AM EDT Narrative 06/22/2023 3:49 PM EDT [facility] Diagnostic Imaging Department [address] [place], [place] [id number] Patient: ??JOSEPHINE ASH ?/Age/Sex: 1960 - 63 - F Unit#: ??[id number] ? Location/Status: ??SPDIMAM/REG CLI ? Mnemonic/Ordering Site: ??DIGSC/SPMAM Ordering Physician: ??RHONDA COX MD Priscilla Screening Digital - 06/22/23 - 1136 Report Status:Signed EXAM: [facility] Screening Digital EXAM DATE AND TIME: 06/22/2023 11:37 AM HISTORY: ??Screening. COMPARISON: ??05/24/16, 05/12/16 outside studies TECHNIQUE: Bilateral digital breast tomosynthesis was performed in the CC and MLO projections. Computer aided detection with [employer] 3D 3.1 was employed. TISSUE DENSITY: a. [...] Procedure Note Gwen Castrejon MD - 09/25/2023 [facility] Diagnostic Imaging Department [address] [place] [address] Patient: JOSEPHINE ASH D.O.B./Age/Sex: 1960 - 63 - F Unit#: [id number] Location/Status: [facility]/REG CLI Mnemonic/Ordering Site: [facility] Ordering Physician: RHONDA COX MD Priscilla Screening Digital - 06/22/23 - 1136 Report Status:Signed EXAM: [facility] Screening Digital EXAM DATE AND TIME: 06/22/2023 11:37 AM HISTORY: Screening. COMPARISON: 05/24/16, 05/12/16 outside studies TECHNIQUE: Bilateral digital breast tomosynthesis was performed in the CCand MLO projections. Computer aided detection with [employer] 3D 3.1was employed. TISSUE DENSITY: a. The [...] Recently Relevant to Health Maintenance Care Teams Radar Engineer Relationship Specialty Start Date End Date Physician, Pcp Unknown PCP - General 02/08/24
== END 2024-06-21 13:29 | disposition home or self-care (01) ==
LOC: HO.HPS 13:05
PROVIDERS: PCP Internal Medicine; Visit Provider Internal Medicine Pulmonary Disease
DX: D80.4 Selective deficiency of immunoglobulin M [IgM] (principal); Z99.81 Dependence on supplemental oxygen; T17.900A Unspecified foreign body in respiratory tract, part unspecified causing asphyxiation, initial encounter; J44.9 Chronic obstructive pulmonary disease, unspecified; Z87.891 Personal history of nicotine dependence; R06.01 Orthopnea
CPT/HCPCS: 99214

== ENCOUNTER → 2024-06-21 13:05 | Outpatient (BNVA) | payer MEDICAID, SELFPAY | PROVIDERS: PCP Internal Medicine; Visit Provider Internal Medicine Pulmonary Disease | DX: J44.9 Chronic obstructive pulmonary disease, unspecified (principal); D80.4 Selective deficiency of immunoglobulin M [IgM]; R06.01 Orthopnea; T17.900A Unspecified foreign body in respiratory tract, part unspecified causing asphyxiation, initial encounter; X58.XXXA Exposure to other specified factors, initial encounter; Y93.9 Activity, unspecified; Y92.9 Unspecified place or not applicable; Y99.9 Unspecified external cause status; Z99.81 Dependence on supplemental oxygen; Z87.891 Personal history of nicotine dependence | CPT/HCPCS: 99212 ==

== ENCOUNTER 2024-06-26 08:14 | Outpatient (AMB) | payer MEDICAID, SELFPAY ==
--- NOTE | 2024-06-26 13:24 | A.OFFVIS_ITS ---
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 MWL *[phone]* Allergies No Known Allergies [No Known Allergies*] Allergy (Verified 06/26/24 13:24) Medication List - Last Reconciled 06/26/24 by Sanjay Casillas MD aspirin 81 mg PO DAILY clonazepam mg PO clonidine HCl 0.1 mg PO BID ferrous sulfate 325 mg PO DAILY fluoxetine mg PO furosemide 40 mg PO DAILY gabapentin 800 mg PO TID ipratropium-albuterol 0.5 mg-3 mg(2.5 mg base)/3 mL 3 mL inhalation Q4-6H PRN ondansetron 4 mg PO Q8H PRN quetiapine mg PO rosuvastatin 40 mg PO DAILY sucralfate 1 g PO QID umeclidinium-vilanterol 62.5-25 mcg/actuation (Anoro Ellipta) 1 ea PO DAILY HPI HPI TV LINE ANALYST MWL *[phone]*: Details: Start time: 1.15pm, End time: 2pm I spent 40 minutes speaking with the patient on the phone plus an additional 5 minutes reviewing and updating records for a total of 45 minutes HPI Comments Details: Previous weight loss efforts: none Wakes up: 7am, Sleeps: 8.30pm Breakfast: 8am (Breakfast) Lunch: 1pm (salad with chicken) Dinner: 6pm (cottage cheese with Mangos) Snacks: 4pm (Algerian) Exercise: none Beverages: Coffee (1 cup/d with creamer), tea: none, soda: none, juice: none, ETOH: none PFSH Medical History (Updated 06/26/24 @ 13:53 by Sanjay Casillas MD) Lower extremity edema Hypertension Hyperlipidemia Neuropathy GERD (gastroesophageal reflux disease) NIDDY (non-insulin dependent diabetes mellitus in young) CVA (cerebral vascular accident) Anxiety Depression Obesity Surgical History (Updated 06/18/24 @ 10:53 by Savanna Oates CMA) Hx of cholecystectomy Hx of appendectomy Hx of splenectomy Family History (Updated 06/18/24 @ 10:54 by Savanna Oates CMA) Mother Heart problem Father Family history unknown Daughter No problems noted. Daughter No problems noted. Son No problems noted. Son No problems noted. Social History (Updated 06/18/24 @ 10:54 by Savanna Oates CMA) Alcohol intake: never Patient Tobacco Use Status: Never used Tobacco Telehealth Telehealth Telehealth Platform: Telephone Location of provider rendering services: practice address Location of patient: address on file Patient Identification confirmed using: Name, : Yes Telehealth method: voice only Patient verbally consented to treatment: Yes Patient verbally consented to billing insurance company: Yes Patient informed of any privacy concerns related to visit: Yes Minutes spent on Phone/Video with Pt.: 45 Assessment & Plan Assessment & Plan (1) Obesity: Code(s): E66.9 - Obesity, unspecified Category: Medical Qualifiers: Obesity type: due to excess calories Obesity classification: adult class 2 (BMI 35 - 39.9) Serious obesity comorbidity presence: with serious comorbidity Body mass index: BMI 36.0-36.9 Qualified Code(s): E66.812 - Obesity, class 2; E66.01 - Morbid (severe) obesity due to excess calories; Z68.36 - Body mass index [BMI] 36.0-36.9, adult Plan: 1. Plan for lap sleeve gastrectomy. If diaphragmatic or ventral hernias are present at time of surgery, these will be repaired laparoscopically as well. I emphasized the importance of close follow-up, adherence to instructions and good communication. The surgery does not replace the need to change your lifestlyle which is the cause of the obesity problem. The surgery provides the motivation to try again to change your lifestyle, it reduces the appetite and make the transition to a better lifestyle easier and doubles the amount of weight you would lose compared to doing the lifestyle change without the surgery. You will need to be on a liquid diet with protein shakes for 2 weeks before surgery to maximize weight loss and boost your nutritional status to recover better from surgery and also for the first two weeks after surgery to let the stomach heal before we introduce other foods. After the first 2 weeks we will introduce protein bars and soft foods like scrambled eggs, cottage cheese and yogurt and after the 6th week will introduce meat, fish and cooked vegetables in small amounts. Over time you should be able to eat everything in small amounts. Side effects like nausea, vomiting, heartburn or abdominal pain are not common in the practice unless you are not following in the practice. This operation requires lifetime commitment to following in our practice and communication with me. You will much less weight and experience side effects if you don?t communicate or not following in the practice. Complications are rare and in our practice is about 1/10 of the national average. However, you can develop bleeding that may require transfusion (hasn?t happened for year in the practice), you may from complications (we did not have any deaths in the practice) and infections. Infections are usually a result of breakdown in communication or not understanding or following directions correctly. They are difficult to treat, they can happen during the first 6 weeks, they may require to be in the hospital for weeks or even months, not being able to eat by mouth and you may have drains and surgeries to try and correct the issue. Other risks and complications include possible conversion to an open procedure, leaks, small bowel obstruction, blood clots, cardiac, or pulmonary complications, as jail c omplications such as ulcers, insufficient weight loss and vitamin deficiencies. 2. Nutritional counseling. Start with 2 premade PREMIER protein (buy at [employer] or [employer]) shakes (mix 4oz of Premier with 4oz low fat unsweetened almond milk each) at 8am-10am and 11am-1pm, 1 protein bar (Fit Crunch protein bars, buy at [employer] or [employer]) at 2pm-4pm, dinner at 5pm (8 forks of protein and 8 forks of salad/vegetables) and one more protein bar after dinner at 6pm-8pm. So you do 2 protein shakes, 2 protein bars and one meal per day. Meal to include lean meat (beef, fish, pork, turkey, chicken), or english yogurt, or egg whites, or beans with a salad with olive oil and fruits (berries, pears, apples, kiwi). Avoid salt, breads, potatoes, rice, pasta, desserts. 3. Each shake would be drunk slowly, like coffee in a period of 2 hours. 4. Cut each bar in 4 pieces and eat each piece in 30min to make each bar last 2 hours. 5. I emphasized the importance of measuring accurately the food portion and measure it when serving the food in plate 6. The meal portions include 8 full-size forks of meat and 8 full-size forks of salad. You always eat the meat portion but you can replace up to 4 forks for salad/vegetables with rice, potatoes or pasta, or a fruit if you like. The less you do it the better weight loss will be. 7. One full-size fork is what it can be scooped on the fork without falling aside and not what can be bit with the fork. Use regular forks like those you find in a typical restaurant. 8. Please buy the body composition scale we discussed and send me weight measurements as soon as possible and then once a week. Always include your diet and exercise plan. Alternatively come weekly at the office for weight checks and send me the measurements. 9. The best choice would be to purchase a stationary bike at home that can track calories. Let me know if you do so I can give you an exercise plan. 10. Goal is to lose at least 1.5-2lbs per week 11. Goal to lose 10% of your weight before surgery, which is about 22lbs. Ultimate weight goal: 210lbs before surgery 12. Please follow the diet plan exactly without any change. If you don't like something about the plan or you feel hungry you need to communicate with me so I can help you revise the plan. You should not change the plan yourself 13. To be scheduled for EGD to assess the stomach's anatomy. The possibility of biopsies was discussed. Patient needs to avoid use of NSAIDs and aspirin for 1 week prior to EGD. You must be on liquids only the day before your endoscopy. Risks of perforation and bleeding was discussed with the patient. This will be an outpatient procedure with IV sedation. 14. As of tomorrow, please send me a picture of your meal plate after you measure it, but before you consume it.
[2024-06-26 13:51] VITALS: BMI 36.3
== END 2024-06-26 14:00 | disposition home or self-care (01) ==
LOC: HO.HBS 08:14
PROVIDERS: PCP Internal Medicine; Visit Provider Surgery
DX: E66.812 Obesity, class 2 (principal); E66.01 Morbid (severe) obesity due to excess calories; Z68.36 Body mass index [BMI] 36.0-36.9, adult
CPT/HCPCS: 99204

== ENCOUNTER → 2024-06-26 08:14 | Outpatient (BNVA) | payer MEDICAID, SELFPAY | PROVIDERS: PCP Internal Medicine; Visit Provider Surgery ==

== ENCOUNTER 2024-08-01 13:01 | Outpatient (REF) | payer MEDICAID, SELFPAY ==
--- NOTE | ~2024-08-01 | CT_ITS ---
CLINICAL HISTORY: Z87.891 - Personal history of nicotine dependence CT lung cancer screening (LDCT) Comparison: CT/TX/SR - CT LUNG SCREENING - 07/20/23 13:05 EDT Technique: Axial CT images of the chest using low-dose technique. Referring provider counseled the patient on shared decision-making for LDCT screening. Additional counseling was provided on smoking cessation. Effective radiation dose total: DLP 96.9 mGycm, CTDIvol 2.5 mGy. Findings: Lung: No evidence of pneumonia or edema. Coronary artery calcifications: Moderate Limited upper abdomen: Unremarkable Other: None Impression: 1. Coronary artery disease. 2. LungRADS 1: Negative exam. Continue annual screening with low dose Chest CT in 12 months. ##L1## Category 1: Normal; continue annual screening Category 2: Benign appearance or behavior, continue annual screening Category 3: Probably benign, [address] recommended Category 4A: Suspicious, [address] recommended; may consider PET/CT Category 4B: Suspicious, Additional diagnostics and/or tissue sampling recommended Category 4X: Suspicious, Additional diagnostics and/or tissue sampling recommended Category 0: Recalls (incomplete screen due to Incomplete coverage, Noise, Respiratory motion, Expiration, Obscured by acute abnormality) This document has been electronically signed by: Janice Jernigan MD on 08/01/2024 14:37:39
--- OUTSIDE RECORDS SUMMARY | 2024-08-01 15:31 | XMS_ITS | Clinical Summary ---
Author Organization 175 [facility] Address [address] [place] [address] Phone Care Team Providers Care Contract Sheltered Workshop Supervisor Name Role Phone Physician, Pcp Unknown Primary Care Provider Michaela vailable Allergies No known active allergies Encounters Date Type Department Care Team Description 05/02/2024 10:15 AM EDT Office Visit Orthopedic Surgery [facility] [address] [address] Valentin Cordova, ARELIS Hypertrophy of nail (Primary Dx); Ingrowing nail; Dermatophytosis of nail; Diabetic mononeuropathy simplex ([facility] V24, [facility] V28) from Last [...] 05/02/2024 10:14 AM EDT Plan of Treatment Health Maintenance Due Date Last Done Comments [...] Procedure Name Priority Date/Time Associated Diagnosis Comments SONYA SCREENING DIGITAL Routine 06/22/2023 3:49 PM EDT Encounter for screening mammogram for malignant neoplasm of breast ANNUAL BMP BLOOD TEST Routine 03/10/2003 from Last 3 Months or Most Recently Relevant to Health Maintenance Results * [facility] SCREENING DIGITAL (06/22/2023 3:49 PM EDT) Anatomical Region Laterality Modality Mammography 06/22/2023 11:1 5 AM EDT Narrative 06/22/2023 3:49 PM EDT [facility] Diagnostic Imaging Department [address] [place], [place] [id number] Patient: JOSEPHINE ASH /Age/Sex: 1960 - 63 - F Unit#: [id number] [facility] Mnemonic/Ordering Site: [facility] Ordering Physician: RHONDA COX MD [facility] Screening Digital - 06/22/23 - 1136 Report Status:Signed EXAM: [facility] Screening Digital EXAM DATE AND TIME: 06/22/2023 11:37 AM HISTORY: Screening. COMPARISON: 05/24/16, 05/12/16 outside studies TECHNIQUE: Bilateral digital breast tomosynthesis was performed in the CC and MLO projections. Computer aided detection with [employer] 3D 3.1 was employed. TISSUE DENSITY: a. The breasts are almost entirely fatty. FINDINGS: No suspicious masses, grouped microcalcifications, or areas of architectural distortion are seen. The skin and vascularity are unremarkable. IMPRESSION: Stable mammographic appearance of the breasts. No evidence of malignancy is seen. A negative mammogram in the presence of a clinically suspicious palpable abnormality does not preclude the possibility of malignancy or alter the indications for biopsy. BI-RADS: Category 1: Negative RECOMMENDATION(S): 1: Routine screening mammogram BILATERAL in 1 year. Dictating Physician: GWEN CASTREJON MD Electronically Signed by: GWEN CASTREJON MD Dic Date/Time: 06/22/231548 Sign date/Time: 06/22/231548 Procedure Note Gwen Castrejon MD - 09/25/2023 [facility] Diagnostic Imaging Department [address] [place] [address] Patient: JOSEPHINE ASH.O.B./Age/Sex: 1960 - 63 - F Unit#: [id number] Location/Status: [facility] Mnemonic/Ordering Site: [facility] Ordering Physician: RHONDA COX MD [facility] Screening Digital - 06/22/23 - 1136 Report Status:Signed EXAM: [facility] Screening Digital EXAM DATE AND TIME: 06/22/2023 11:37 AM HISTORY: Screening. COMPARISON: 05/24/16, 05/12/16 outside studies TECHNIQUE: Bilateral digital breast tomosynthesis was performed in the CCand MLO projections. Computer aided detection with [employer] 3D 3.1was employed. TISSUE DENSITY: a. The [...] Date/Time: 06/22/23 1549 Sign date/Time: 06/22/23 1549 Rhonda Cox MD IMG BI PROCEDURES Final Resul t * Annual BMP Blood Test (03/10/2003) Annual BMP Blood Test abstracted Historical Provider HEALTH MAINTENANCE Final Result from Last 3 Months or Most Recently Relevant to Health Maintenance Care Teams Contract Sheltered Workshop Supervisor Relationship Specialty Start Date End Date Physician, Pcp Unknown PCP - General 02/08/24
== END 2024-08-01 13:02 | disposition home or self-care (01) ==
LOC: HO.CT 13:01
PROVIDERS: PCP Internal Medicine; Visit Provider Internal Medicine Pulmonary Disease
DX: Z12.2 Encounter for screening for malignant neoplasm of respiratory organs (principal); Z87.891 Personal history of nicotine dependence
CPT/HCPCS: 71271

== ENCOUNTER → 2024-08-01 13:03 | Outpatient (BNV) | payer MEDICAID, SELFPAY | PROVIDERS: PCP Internal Medicine; Visit Provider Radiology Diagnostic Radiology | DX: Z12.2 Encounter for screening for malignant neoplasm of respiratory organs (principal); I25.10 Atherosclerotic heart disease of native coronary artery without angina pectoris; Z87.891 Personal history of nicotine dependence | CPT/HCPCS: 71271 ==

== ENCOUNTER 2024-08-21 10:09 | Outpatient (REF) | payer MEDICAID, SELFPAY ==
--- NOTE | 2024-08-21 10:15 | EMG_ITS ---
Chief complaint: Bilateral hand numbness, history of stroke Reason for referral: Evaluate for Carpal Tunnel Syndrome Referred by: Dr. Johnson Procedure done: Bilateral upper extremities NCS Precautions and/or limitations: Patient afraid of needles, needle EMG refused. Patient is on chronic oxygen 4 L per nasal cannula. The limb temperature was monitored continuously and remained between 32-36 degrees C during the performance of the NCS. Nerve Conduction Studies Anti Sensory Summary Table ?Stim Site NR Onset (ms) Norm Onset (ms) Peak (ms) Norm Peak (ms) O-P Amp (?V) Norm O-P Amp Site1 Site2 Delta-0 (ms) Dist (cm) Deep (m/s) Norm Deep (m/s) Left Median Anti Sensory (2nd Digit) Wrist ? 3.3 4.2 <3.6 10.2 >10 Wrist 2nd Digit 3.3 14.0 42 Right Median Anti Sensory (2nd Digit) Wrist ? 3.4 4.3 <3.6 14.4 >10 Wrist 2nd Digit 3.4 14.0 41 Right Radial Anti Sensory (Thumb) Forearm ? 1.5 2.1 <3.1 13.0 Forearm Thumb 1.5 0.0 Left Ulnar Anti Sensory (5th Digit) Wrist ? 2.4 3.1 <3.7 21.5 >15.0 Wrist 5th Digit 2.4 14.0 58 Right Ulnar Anti Sensory (5th Digit) Wrist ? 2.1 3.0 <3.7 15.1 >15.0 Wrist 5th Digit 2.1 14.0 67 Motor Summary Table ?Stim Site NR Onset (ms) Norm Onset (ms) O-P Amp (mV) Norm O-P Amp iAmp (mV) Amp (1st) (%) Site1 Site2 Delta-0 (ms) Dist (cm) Deep (m/s) Norm Deep (m/s) Left Median Motor (Abd Poll Brev) Wrist ? 4.2 <3.9 3.7 >4.5 4.9 100.0 Elbow Wrist 5.8 22.0 38 >45 Elbow ? 10.0 2.8 3.7 75.7 Right Median Motor (Abd Poll Brev) Wrist ? 4.2 <3.9 9.0 >4.5 11.1 100.0 Elbow Wrist 4.1 20.0 49 >45 Elbow ? 8.3 8.6 10.7 95.6 Left Ulnar Motor (Abd Dig Minimi) Wrist ? 2.7 <3.0 8.0 >5 10.3 100.0 B Elbow Wrist 4.3 20.0 47 >45 B Elbow ? 7.0 7.0 9.0 87.5 A Elbow B Elbow 1.2 10.0 83 >45 A Elbow ? 8.2 7.7 10.1 96.3 Right Ulnar Motor (Abd Dig Minimi) Wrist ? 3.0 <3.0 8.3 >5 10.3 100.0 B Elbow Wrist 3.9 19.0 49 >45 B Elbow ? 6.9 7.0 9.0 84.3 A Elbow B Elbow 1.2 10.0 83 >45 A Elbow ? 8.1 8.0 10.0 96.4 FINDINGS: Right median motor nerve showed prolonged distal latency, normal amplitude and normal conduction velocity. Left median motor nerve showed prolonged distal latency, small amplitude and small conduction velocity. Bilateral median sensory nerves showed prolonged peak latency. All other nerves tested were within normal. IMPRESSION: 1. This is an abnormal nerve conduction study. 2. There is electrodiagnostic evidence for bilateral moderate-severe median neuropathy at the wrist, consistent with carpal tunnel syndrome. 3. There is no electrodiagnostic evidence for ulnar neuropathy. Thank you for your kind referral. Oxana Marquez MD, JINNY Board Certified, [place] [employer] and Rehabilitation (ABPMR) Board Certified, [place] Board of Electrodiagnostic Medicine (ABEM) CODIN 5 911 MTDD
--- OUTSIDE RECORDS SUMMARY | 2024-08-21 10:42 | XMS_ITS | Clinical Summary ---
Author Organization 175 [facility] Address [address] [place] [address] Phone Care Team Providers Care Policy And Planning Manager Name Role Phone Physician, Pcp Unknown Primary Care Provider Michaela vailable Allergies No known active allergies Social History Tobacco Use Types Packs/Day Years [...] Sugar Control Test (HGBA1C) 05/02/2024 Influenza Vaccine (#1) 2024 , 01/01/2018, 12/11/2016, Additional history exists Breast Cancer [...] Recently Relevant to Health Maintenance Results * SONYA SCREENING DIGITAL (06/22/2023 3:49 PM EDT) Anatomical Region Laterality Modality Mammography 06/22/2023 11:1 5 AM EDT Narrative 06/22/2023 3:[address] [facility] Diagnostic Imaging Department [address] [place] [address] Patient: JOSEPHINE ASH /Age/Sex: 1960 - 63 - F Unit#: [id number] Location/Status: SPDIMAM/REG CLI Mnemonic/Ordering Site: [facility] Ordering Physician: RHONDA COX MD [facility] Screening Digital - 06/22/23 - 1136 Report Status:Signed EXAM: [facility] Screening Digital EXAM DATE AND TIME: 06/22/2023 11:37 AM HISTORY: Screening. COMPARISON: 05/24/16, 05/12/16 outside studies TECHNIQUE: Bilateral digital breast tomosynthesis was performed in the CC and MLO projections. Computer aided detection with [employer] 3D 3.1 was employed. TISSUE DENSITY: a. [...] Note Gwen Castrejon MD - 09/25/2023 [facility] Diagnostic Imaging Department [address] [place] [address] Patient: JOSEPHINE ASH /Age/Sex: 1960 - 63 - F Unit#: [id number] Location/Status: SPDIMAM/REG CLI Mnemonic/Ordering Site: [facility] Ordering Physician: RHONDA COX MD [facility] Screening Digital - 06/22/23 - 1136 Report Status:Signed EXAM: [facility] Screening Digital EXAM DATE AND TIME: 06/22/2023 11:37 AM HISTORY: Screening. COMPARISON: 05/24/16, 05/12/16 outside studies TECHNIQUE: Bilateral digital breast tomosynthesis was performed in the CCand MLO projections. Computer aided detection with [employer] 3D 3.1was employed. TISSUE DENSITY: a. The [...] MD Dic Date/Time: 06/22/23 1549 Sign date/Time: 06/22/231548 us Rhonda Cox MD IMG BI PROCEDURES Final Resul t * Annual BMP Blood Test (03/10/2003) Annual BMP Blood Test abstracted us Historical Provider HEALTH MAINTENANCE Final Result from Last 3 Months or Most Recently Relevant to Health Maintenance Care Teams Policy And Planning Manager Relationship Specialty Start Date End Date Physician, Pcp Unknown PCP - General 02/08/24
== END 2024-08-21 10:10 | disposition home or self-care (01) ==
LOC: HO.NEURO 10:09
PROVIDERS: PCP Internal Medicine; Visit Provider Internal Medicine
DX: G56.03 Carpal tunnel syndrome, bilateral upper limbs (principal)
CPT/HCPCS: 95911

== ENCOUNTER → 2024-08-21 10:15 | Outpatient (BNV) | payer MEDICAID, SELFPAY | PROVIDERS: PCP Internal Medicine; Visit Provider Physical Medicine & Rehabilitation | DX: G56.03 Carpal tunnel syndrome, bilateral upper limbs (principal) | CPT/HCPCS: 95911 ==

== ENCOUNTER 2024-08-29 10:11 | Outpatient (REF) | payer MEDICAID, SELFPAY ==
[2024-08-29 10:47] LABS: Hemoglobin A1C 140.2859 umol/L; Total Hemoglobin (HGBA1C) 3307.4566 umol/L
--- OUTSIDE RECORDS SUMMARY | 2024-08-29 10:59 | XMS_ITS | Clinical Summary ---
Author Organization 175 [facility] Address [address] [place] [address] Phone Care Team Providers Care Vinyl Flooring Installer Name Role Phone Physician, Pcp Unknown Primary [...] Panel) 09/05/2023 Colorectal Cancer Screening: Colonoscopy 09/05/2023 HIV Screening 09/05/2023 Hepatitis C Screening 09/05/2023 Social Influencers of Health Screening 09/05/2023 COVID-19 Vaccine ( season) 2023 Depression Screening 02/07/2024 Diabetes: Annual Urine Albumin-Creatinine Ratio (uACR) 05/02/2024 [...] AM EDT Narrative 06/22/2023 3:49 PM EDT [facility] Diagnostic Imaging Department [address] [place] [address] Patient: JOSEPHINE ASH /Age/Sex: 1960 - 63 - F Unit#: [id number] Location/Status: SPDIMAM/REG CLI [facility]emonic[facility] Ordering Physician: RHONDA COX MD [facility] Screening Digital - 06/22/23 - 1136 Report Status:Signed EXAM: [facility] Screening Digital EXAM DATE AND TIME: 06/22/2023 11:37 AM HISTORY: Screening. COMPARISON: 05/24/16, 05/12/16 outside studies TECHNIQUE: Bilateral digital breast tomosynthesis was performed in the CC and MLO projections. Computer aided detection with [employer] 3D 3.1 was employed. TISSUE DENSITY: a. [...] Procedure Note Gwen Castrejon MD - 09/25/2023 [facility] Diagnostic Imaging Department [address] [place] [address] Patient: JOSEPHINE ASH /Age/Sex: 1960 - 63 - F Unit#: [id number] Location/Status: SPDIMAM/REG CLI Mnemonic/Ordering Site: [facility] Ordering Physician: RHONDA COX MD [facility] Screening Digital - 06/22/23 - 1136 Report Status:Signed EXAM: [facility] Screening Digital EXAM DATE AND TIME: 06/22/2023 11:37 AM HISTORY: Screening. COMPARISON: 05/24/16, 05/12/16 outside studies TECHNIQUE: Bilateral digital breast tomosynthesis was performed in the CCand MLO projections. Computer aided detection with [employer] 3D 3.1was employed. TISSUE DENSITY: a. The [...] Recently Relevant to Health Maintenance Care Teams Vinyl Flooring Installer Relationship Specialty Start Date End Date Physician, Pcp Unknown PCP - General 02/08/24
[2024-08-29 11:15] LABS: Alanine Aminotransferase 33 U/L (0-31); Albumin Level 4.0 g/dL (3.5-5.0); Alkaline Phosphatase 117 U/L (39-117); Anion Gap 10 (12-20); Aspartate Amino Transferase 37 U/L (5-31); Blood Urea Nitrogen 21 mg/dL (9-16); Calcium 9.0 mg/dL (8.4-10.2); Carbon Dioxide 37 mmol/L (22-29); Chloride 98 mmol/L (96-108); Cholesterol 103 mg/dL (<200); Estimated Glomerular Filt Rate 52; HDL Cholesterol 35 mg/dL (>40); Potassium 3.9 mmol/L (3.3-5.1); Sodium 141 mmol/L (135-145); Total Protein 7.0 g/dL (6.5-8.0); Triglycerides 149 mg/dL (<150)
[2024-08-29 11:32] LABS: Thyroid Stimulating Hormone 1.84 uIU/mL (0.32-4.0)
== END 2024-08-29 10:12 | disposition home or self-care (01) ==
LOC: HO.LAB 10:11
PROVIDERS: Absent Provider Surgery; PCP Internal Medicine; Visit Provider Internal Medicine
DX: E11.9 Type 2 diabetes mellitus without complications (principal); J44.9 Chronic obstructive pulmonary disease, unspecified; R09.02 Hypoxemia; E78.00 Pure hypercholesterolemia, unspecified; Z79.891 Long term (current) use of opiate analgesic
CPT/HCPCS: 36415; 80053; 80061; 82043; 82570; 83036; 84443

== ENCOUNTER 2024-10-01 14:18 | Outpatient (AMB) | payer MEDICAID, SELFPAY ==
--- OUTSIDE RECORDS SUMMARY | 2024-09-27 13:41 | XMS_ITS | Encounter Summary ---
Author Organization [facility] Address [address] [place] [address] Care Team Providers Care Assistant Boys Track Coach Name Role Phone Rhonda Johnson MD Primary Care Provider [phone] Reason for Referral * Imaging (Routine) - Pending Review Specialty Diagnoses / Procedures Referred By Nancy johnson Referred To Contact Radiology Diagnoses Encounter for other screening for malignant neoplasm of breast Procedures MG Mammo Digital Screening w Rhonda Lopez MD [address] [place] [address] [place] [address] Phone: tel: fax: [address] [address] Phone: tel: Referral ID Status Reason Start Date Expiration Date V isits Requested Visits Authorized [id number] Pending Review 09/03/2024 09/03/2025 1 1 Reason for Visit * Imaging (Routine) - Pending Review Specialty Diagnoses / Procedures Referred By Nancy johnson Referred To Contact Radiology Diagnoses Encounter for other screening for malignant neoplasm of breast Procedures MG Mammo Digital Screening w Rhonda Lopez MD [address] [place] [address] [place] [address] Phone: tel: fax: [address] [address] Phone: tel: Referral ID Status Reason Start Date Expiration Date V isits Requested Visits Authorized [id number] Pending Review 09/03/2024 09/03/2025 1 1 Encounter Details Date Type Department Care Team (Latest Contact Info) Description 09/27/2024 1:41 PM EDT - 09/27/2024 11:59 PM EDT [facility] [address] [address] Encounter for other screening for malignant neoplasm of breast Discharge Disposition: Home or Self Care Social History Tobacco Use Types Packs/Day Years Used Date Smoking Tobacco: Never Assessed Comments No Sex and Gender Information Value Date Recorded Sex Assigned at Female 09/10/2024 9:19 AM EDT Legal Sex Female 5:25 AM EST Gender Identity Female 09/10/2024 9:19 AM EDT Sexual Orientation Straight 09/10/2024 9: 19 AM EDT documented as of this encounter Last Filed Vital Signs Vital Sign Reading Time Taken Comments Blood Pressure - - Pulse - - Temperature - - Respiratory Rate - - Oxygen Saturation - - Inhaled Oxygen Concentration - - Weight 104 kg (230 lb) 09/27/2024 1:48 PM EDT Height - - Body Mass Index 36.02 05/02/2024 10:14 AM EDT documented in this encounter Discharge Disposition Disposition Code Departure Means Destination Home or Self Care documented in this encounter Plan of Treatment Not on file documented as of this encounter Procedures Procedure Name Priority Date/Time Associated Diagnosis Comments MG MAMMO DIGITAL SCREENING W VIKRAM BILAT Routine 09/27/2024 1:57 PM EDT Encounter for other screening for malignant neoplasm of breast documented in this encounter Results * MG Mammo Digital Screening w Vikram bilat (09/27/2024 1:57 PM EDT) Anatomical Region Laterality Modality Breast Bilateral Mammography 09/30/2024 7:21 AM EDT Impressions 09/30/2024 7:27 AM EDT No mammographic evidence of malignancy. No suspicious interval change. A negative mammogram in the presence of a clinically suspicious palpable abnormality does not preclude the possibility of malignancy or alter the indications for biopsy. ASSESSMENT: BI-RADS 1: NEGATIVE RECOMMENDATION(S): 1: Routine screening mammogram BILATERAL in 1 year. [facility] at [address], [address] -------- FINAL REPORT -------- Dictated By: Caleb Jackson Dictated Date: 09/30/2024 07:21 ET Assigned Physician: Caleb Jackson Reviewed and Electronically Signed By: Caleb Jackson Signed Date: 09/30/2024 07:27 ET Workstation ID: [id number] Transcribed By: Self Edit Transcribed Date: 09/30/2024 07:21 ET Narrative 09/30/2024 7:27 AM EDT EXAM: SCREENING MAMMOGRAPHY, BILATERAL HISTORY: SCREENING. No additional history. COMPARISON: 06/22/23, 05/12/16 TECHNIQUE: Synthesized CC and MLO projections of each breast. Tomosynthesis of each breast in the CC and MLO projections. ADDITIONAL IMAGING: None Computer-aided detection was employed with the [employer] AI 3-D. TISSUE DENSITY: There are scattered areas of fibroglandular density. (BI-RADS category B) FINDINGS: RIGHT BREAST: No suspicious mass. No suspicious calcification. No distortion. No additional suspicious right breast findings LEFT BREAST: No suspicious mass. No suspicious calcification. No distortion. No additional suspicious left breast findings Procedure Note Caleb Jackson MD - 09/30/2024 EXAM: SCREENING MAMMOGRAPHY, BILATERAL HISTORY: SCREENING. No additional history. COMPARISON: 06/22/23, 05/12/16 TECHNIQUE: Synthesized CC and MLO projections of each breast.Tomosynthesis of each breast in the CC and MLO projections. ADDITIONAL IMAGING: None Computer-aided detection was employed with the [employer] AI 3-D. TISSUE DENSITY: There are scattered areas of fibroglandular density.(BI-RADS category B) FINDINGS: RIGHT BREAST: No suspicious mass. No suspicious calcification. No distortion. Noadditional suspicious right breast findings LEFT BREAST: No suspicious mass. No suspicious calcification. No distortion. Noadditional suspicious left breast findings IMPRESSION: No mammographic evidence of malignancy. No suspicious interval change. A negative mammogram in the presence of a clinically suspicious palpableabnormality does not preclude the possibility of malignancy or alter theindications for biopsy. ASSESSMENT: BI-RADS 1: NEGATIVE RECOMMENDATION(S): 1: Routine screening mammogram BILATERAL in 1 year. Mammography location: [facility] [address] [place], [address] -------- FINAL REPORT -------- Dictated By: Caleb Jackson Dictated Date: 09/30/2024 07:21 ET Assigned Physician: Caleb Jackson Reviewed and Electronically Signed By: Caleb Jackson Signed Date: 09/30/2024 07:27 ET Workstation ID: [id number] Transcribed By: Self Edit Transcribed Date: 09/30/2024 07:21 ET us Rhonda Johnson MD IMG BI PROCEDURES Final Resul t documented in this encounter Visit Diagnoses Diagnosis Encounter for other screening for malignant neoplasm of breast documented in this encounter Care Teams Assistant Boys Track Coach Relationship Specialty Start Date End Date Rhonda Johnson MD [address] [place] [address] [place] [address] PCP - General Internal Medicine 09/10/24 documented as of this encounter
[2024-10-01 14:23] VITALS: BP 108/58; PULSE 67; O2SAT 90; BMI 36.5
--- NOTE | 2024-10-01 14:23 | A.OFFVIS_ITS ---
Vital Signs 10/01/24 14:23 Height 5 ft 7 in Weight 233 lb BMI 36.5 BP 108/58 L Blood Pressure Location Rt brachial Position Sitting Pulse 67 Pulse Source Pulse Oximeter Pulse Oximetry (%) 90 L Oxygen Delivery Method Room Air Intake Visit Reasons: ongoing cough Allergies No Known Allergies (No Known Allergies*) Allergy (Verified 06/26/24 13:24) HPI HPI ongoing cough: Details: 64-year-old lady, former 60+ pack-year smoker, quit 2020 now followed for supplemental oxygen dependent COPD, pulmonary aspiration, and orthopnea. Patient had MBS that showed pulmonary aspiration and she is working with speech therapy on diet modification and swallowing techniques. Her 2D echocardiogram is essentially normal. Lung cancer screening CT chest is essentially normal. Patient is using albuterol MDI and Anoro with reasonable baseline control of her underlying COPDHer sleep study is essentially normal. Patient does have underlying history of asplenia. She continues on IVIG therapy with significantly decreased frequency of pulmonary infections. She continues on diuretic regimen with good control of her orthopnea and lower extremity edema. She had recent exacerbation requiring treatment with a course of Levaquin and prednisone. Now she also appears to be on tail end of an upper respiratory viral infection. [facility] Medical History (Updated 06/26/24 @ 13:53 by Sanjay Casillas MD) Lower extremity edema Hypertension Hyperlipidemia Neuropathy GERD (gastroesophageal reflux disease) NIDDY (non-insulin dependent diabetes mellitus in young) CVA (cerebral vascular accident) Anxiety Depression Obesity Surgical History (Updated 06/18/24 @ 10:53 by Savanna Oates CMA) Hx of cholecystectomy Hx of appendectomy Hx of splenectomy Family History (Updated 06/18/24 @ 10:54 by Savanna Oates CMA) Mother Heart problem Father Family history unknown Daughter No problems noted. Daughter No problems noted. Son No problems noted. Son No problems noted. Social History (Updated 06/18/24 @ 10:54 by Savanna Oates CMA) Alcohol intake: never Patient Tobacco Use Status: Never used Tobacco Review of Systems Const Denies daytime sleepiness, Denies excessive sweating, Reports fatigue, Reports fever(s), Denies lethargy, Denies malaise, Denies night sweats, Denies snoring and Denies weight loss Eyes Denies blurry vision and Denies itchy eyes ENT Denies nasal congestion, Denies post nasal drip, Denies sinus pain, Denies sinus pressure and Denies other ( Thrush) Card Denies chest pain, Denies pedal edema, Denies dyspnea, Denies orthopnea and Denies paroxysmal nocturnal dyspnea Resp Reports cough, Denies hemoptysis, Denies excessive phlegm production, Denies dyspnea, Denies snoring and Denies wheezing GI Denies abdominal pain and Denies heartburn Musc Denies myalgias, Denies arthralgias and Denies joint swelling Skin/Breast Denies rash Neuro Denies memory loss and Denies seizure-like activity Psych Denies abnormal sleep pattern, Denies anxiety and Denies memory loss Endo Denies excessive sweating, Reports fatigue and Denies heat intolerance Shaq/Lymph Denies easy bruising Aller/Immun Denies itchy eyes, Denies seasonal rhinorrhea and Denies wheezing Physical Exam Vital Signs: Last Vital Signs Pulse 67 10/01/24 14:23 BP 108/58 L 10/01/24 14:23 Pulse Ox 90 L 10/01/24 14:23 Oxygen Delivery Method Room Air 10/01/24 14:23 BMI result Body Mass Index 36.5 Const General: no acute distress and alert Nutritional Appearance: not obese Orientation/consciousness: Other orientation findings ( oriented) HEENT Head: Yes atraumatic Eyes General: appearance normal, both eyes and all related structures Sclerae: sclerae normal EOM: EOMs intact bilaterally Neck Neck: Yes supple Lymphatic: no lymphadenopathy noted Resp Effort & Inspection: normal respiratory effort and no use of accessory muscles Auscultation: clear to auscultation bilaterally Cardio Rate: regular rate Rhythm: regular rhythm Heart sounds: no gallops, no murmurs and no rubs Skin General skin exam: other ( warm) Extrem General: No clubbing, No cyanosis and No edema Assessment & Plan Assessment & Plan (1) Orthopnea: Code(s): R06.01 - Orthopnea Category: Medical Plan: Well controlled on current diuretic regimen of furosemide 40 mg daily. Continue current regimen. 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 Continue current regimen. (3) Supplemental oxygen dependent: Code(s): Z99.81 - Dependence on supplemental oxygen Category: Medical Plan: Continue supplemental oxygen to maintain O2 saturation of 89-90%. (4) Pulmonary aspiration: Code(s): T17.900A - Unspecified foreign body in respiratory tract, part unspecified causing asphyxiation, initial encounter Category: Medical Plan: Secondary to prior CVA, now improved with diet modification. (5) COPD (chronic obstructive pulmonary disease): Code(s): J44.9 - Chronic obstructive pulmonary disease, unspecified Category: Medical Plan: Now well controlled on baseline regimen of Anoro, duo nebs, and albuterol MDI. Continue current regimen. (6) Personal history of nicotine dependence: Code(s): Z87.891 - Personal history of nicotine dependence Category: Medical Plan: Results of lung cancer screening CT chest from July 2024 reviewed, no worrisome nodules. Continue lung cancer screening CT chest, next in July of 2025. Coding Level of Care Code Est Pt Level 5 (24878) Complex EM visit Add On G2211 Diagnoses Orthopnea R06.01 IgM deficiency D80.4 Supplemental oxygen dependent Z99.81 Pulmonary aspiration T17.900A COPD (chronic obstructive pulmonary disease) J44.9 Personal history of nicotine dependence Z87.891
--- OUTSIDE RECORDS SUMMARY | 2024-10-01 15:16 | XMS_ITS | Clinical Summary ---
Author Organization [facility] Address [address] [place] [address] Phone Care Team Providers Care Medical Laboratory Technical Officer Name Role Phone Rhonda Johnson MD Primary Care Provider [phone] Allergies No known active allergies Encounters Date Type Department Care Team Description 09/27/2024 1:41 PM EDT - 09/27/2024 11:59 PM EDT [facility] at [address] [address] Encounter for other screening for malignant neoplasm of breast Discharge Disposition: Home or Self Care from Last 3 Months Social History Tobacco Use Types Packs/Day Years Used Date Smoking Tobacco: Never Assessed Comments No Sex and Gender Information Value Date Recorded Sex Assigned at Female 09/10/2024 9:19 AM EDT Legal Sex Female 5:25 AM EST Gender Identity Female 09/10/2024 9:19 AM EDT Sexual Orientation Straight 09/10/2024 9: 19 AM EDT Obstetrics History Para Term AB IAB SAB Ectopic Multiple Livin g Live Births 4 Last Filed Vital Signs Vital Sign Reading Time Taken Comments Blood Pressure - - Pulse - - Temperature - - Respiratory Rate - - Oxygen Saturation - - Inhaled Oxygen Concentration - - Weight 104 kg (230 lb) 09/27/2024 1:48 PM EDT Height 170.2 cm (5' 7 ) [...] Additional history exists Breast Cancer Screening 06/21/2025 09/27/2024, 06/21 DTaP,Tdap,and Td Vaccines (3 - Td or [...] Diagnosis Comments MG MAMMO DIGITAL SCREENING W LANDRY BILAT Routine 09/27/2024 1:57 PM EDT Encounter for other screening for malignant neoplasm of breast ANNUAL BMP BLOOD TEST Routine 03/10/2003 from Last 3 Months or Most Recently Relevant to Health Maintenance Results * MG Mammo Digital Screening w Landry bilat (09/27/2024 1:57 PM EDT) Anatomical Region [...] year. [facility]amm[facility] at [address], [address] -------- FINAL REPORT -------- Dictated By: Caleb Jackson Dictated Date: 09/30/2024 07:21 ET Assigned Physician: Caleb Jackson Reviewed and Electronically Signed By: Caleb Jackson Signed Date: 09/30/2024 07:27 ET Workstation ID: [id number] Transcribed By: Self Edit Transcribed Date: 09/30/2024 07:21 ET Narrative 09/30/2024 7:27 AM EDT EXAM: SCREENING MAMMOGRAPHY, BILATERAL HISTORY: SCREENING. No additional history. COMPARISON: 06/22/23, 05/12/16 TECHNIQUE: Synthesized CC and MLO projections of each breast. Tomosynthesis of each breast in the CC and MLO projections. ADDITIONAL IMAGING: None Computer-aided detection was employed with the [employer] AI 3-D. TISSUE DENSITY: There are scattered [...] None Computer-aided detection was employed with the [employer] AI 3-D. TISSUE DENSITY: There are scattered [...] year. [facility]amm[facility] at [address], [address] -------- FINAL REPORT -------- Dictated By: Caleb Jackson Dictated Date: 09/30/2024 07:21 ET Assigned Physician: Caleb Jackson Reviewed and Electronically Signed By: Caleb Jackson Signed Date: 09/30/2024 07:27 ET Workstation ID: [id number] Transcribed By: Self Edit Transcribed Date: 09/30/2024 07:21 ET Rhonda Johnson MD IMG BI PROCEDURES Final Resul t * Annual BMP Blood Test (03/10/2003) Annual BMP Blood Test abstracted Historical Provider HEALTH MAINTENANCE Final Result from Last 3 Months or Most Recently Relevant to Health Maintenance Insurance [place] Sub[place] Plan / Payer (Ef fective 2024-Present) Name:JOSEPHINE ASH Relation to Subscriber:Self Name:Josephine Ash Payer ID:[id number] Group ID:Not on file Type:Not on file Address: [facility] ATTN:CLAIMS [address] [place], [place] Sub[place] Plan / Payer (Ef fective 2024-Present) Name:JOSEPHINE ASH Relation to Subscriber:Self Name:Josephine Ash Payer ID:[id number] Group ID:Not on file Type:Not on file Address: [facility] ATTN:CLAIMS [address] [place], [place] Care Teams Medical Laboratory Technical Officer Relationship Specialty Start Date End Date Rhonda Johnson MD [address] [place] [address] [place] [address] PCP - General Internal Medicine 09/10/24
== END 2024-10-01 14:44 | disposition home or self-care (01) ==
LOC: HO.HPS 14:19
PROVIDERS: PCP Internal Medicine; Visit Provider Internal Medicine Pulmonary Disease
DX: R06.01 Orthopnea (principal); D80.4 Selective deficiency of immunoglobulin M [IgM]; Z99.81 Dependence on supplemental oxygen; T17.900A Unspecified foreign body in respiratory tract, part unspecified causing asphyxiation, initial encounter; J44.9 Chronic obstructive pulmonary disease, unspecified; Z87.891 Personal history of nicotine dependence
CPT/HCPCS: 99214

== ENCOUNTER → 2024-10-01 14:18 | Outpatient (BNVA) | payer MEDICAID, SELFPAY | PROVIDERS: PCP Internal Medicine; Visit Provider Internal Medicine Pulmonary Disease | DX: R06.01 Orthopnea (principal); D80.4 Selective deficiency of immunoglobulin M [IgM]; Z99.81 Dependence on supplemental oxygen; T17.900A Unspecified foreign body in respiratory tract, part unspecified causing asphyxiation, initial encounter; J44.9 Chronic obstructive pulmonary disease, unspecified; Z87.891 Personal history of nicotine dependence | CPT/HCPCS: 99212 ==

== ENCOUNTER 2024-10-21 11:31 | Outpatient (AMB) | payer MEDICAID, SELFPAY ==
[2024-10-21 11:33] VITALS: BMI 36.5
--- NOTE | 2024-10-21 11:33 | A.OFFVIS_ITS ---
Vital Signs 10/21/24 11:33 Height 5 ft 7 in Weight 233 lb BMI 36.5 Intake Visit Reasons: DIRECTOR OF CLINICAL SERVICES-B/L hand CTS Intake Note: Josephine is a 64 year old right hand dominant female who presents today as a New Patient for evaluation of Bilateral Hand Numbness & Tingling, Left greater than Right. 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 Patient also reports it occasionally wakes her up at night. Denies finger locking. Has tried bilateral carpal tunnel injections in the past without relief, at a different office. Denies any prior injuries or surgeries to the hands. Patient is interested on Left Carpal Tunnel Release. Allergies No Known Allergies (No Known Allergies*) Allergy (Verified 10/21/24 11:33) HPI HPI DIRECTOR OF CLINICAL SERVICES-B/L hand CTS: Details: Josephine is a 64 year old right hand dominant female who presents today as a New Patient for evaluation of Bilateral Hand Numbness & Tingling, Left greater than Right. 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 Patient also reports it occasionally wakes her up at night. Denies finger locking. Has tried bilateral carpal tunnel injections in the past without relief, at a different office. Denies any prior injuries or surgeries to the hands. Patient is interested on Left Carpal Tunnel Release. [facility] Medical History (Updated 10/21/24 @ 15:45 by IVON Pitts) Lower extremity edema Hypertension Hyperlipidemia Neuropathy GERD (gastroesophageal reflux disease) NIDDY (non-insulin dependent diabetes mellitus in young) CVA (cerebral vascular accident) Anxiety Depression Obesity Surgical History (Updated 10/21/24 @ 11:39 by JAELYN Sol) History of hip replacement Hx of cholecystectomy Hx of appendectomy Hx of splenectomy Family History (Updated 06/18/24 @ 10:54 by Savanna Oates CMA) Mother Heart problem Father Family history unknown Daughter No problems noted. Daughter No problems noted. Son No problems noted. Son No problems noted. Social History (Updated 10/21/24 @ 11:38 by JAELYN Sol) Alcohol intake: former Patient Tobacco Use Status: Former Tobacco user Tobacco use type: Cigarette Current occupational status: employed and disabled Current occupation: rt handed Review of Systems Const All systems reviewed & are unremarkable except as noted in HPI and below Physical Exam Vital Signs: BMI result Body Mass Index 36.5 Extrem Other: Neuro: Normal sensation of the tips of all digits of bilateral hands in the office today No thenar or intrinsic wasting. Good APB muscle firing and good finger cross. Vascular: Capillary refill brisk. ROM: Patient can make a fist and extend all their digits. Skin: No lacerations or abrasions noted. General: No ecchymosis. No erythema or evidence of infection. Results Reviewed Results Reviewed: IMPRESSION: 1. This is an abnormal nerve conduction study. 2. There is electrodiagnostic evidence for bilateral moderate-severe median neuropathy at the wrist, consistent with carpal tunnel syndrome. 3. There is no electrodiagnostic evidence for ulnar neuropathy. Thank you for your kind referral. Oxana Marquez MD, JINNY Assessment & Plan Assessment & Plan (1) Bilateral carpal tunnel syndrome: Code(s): G56.03 - Carpal tunnel syndrome, bilateral upper limbs Category: Medical Plan 1. Carpal tunnel syndrome, left Symptoms intermittent, daily, worse at night I educated the patient about the condition. I discussed both operative and nonoperative treatment options. The patient would like to proceed with surgery. The risks and benefits of operative treatment were discussed with the patient and the patient wishes to proceed with surgery. These risks include, but are not limited to, risk of damage to blood vessels, nerves, tendons, infection, recurrence, incomplete relief of preoperative symptoms, persistent pain, possible need for further surgery, and the risks associated with regional blocks and/or anesthesia. Plan is to take the patient to the operating room at some point in the next few weeks for the following procedures: 1. Left carpal tunnel release under local anesthesia All of the preoperative paperwork including the consent was discussed today. All of the patient's questions were answered in the clinic today. The patient understands that they will be in contact with our surgical supply assistant to discuss scheduling their procedure. Patient denies diabetes, blood thinners, asthma, heart issues, lung issues, kidney issues, or current smoking. Patient has ordered a enoc walker for the postoperative period, as using her normal walk her would far exceed the 2 lb of force to be put through the left hand for 4 weeks postoperatively 2. Carpal tunnel syndrome, right Symptoms intermittent, daily, worse at night Patient would like to proceed with operative intervention of the left prior to intervention of the right Patient is educated that at her postoperative visit, if she is recovering well, we can get the right side signed up for surgery Patient understands this and is amenable to this plan Medications: New walker R Enoc walker for postop period following L CTR 1 ea 0RF Coding Level of Care Code New Pt Level 4 (39913) Diagnoses Bilateral carpal tunnel syndrome G56.03
--- OUTSIDE RECORDS SUMMARY | 2024-10-21 15:49 | XMS_ITS | Clinical Summary ---
Author Organization [address] [facility] Address [address] [place] [address] Phone Care Team Providers Care Chemical Analyst Name Role Phone Rhonda Johnson MD Primary Care Provider [phone] Allergies No known active allergies Encounters Date Type Department Care Team Description 09/27/2024 1:41 PM EDT - 09/27/2024 11:59 PM EDT [facility] at [address] [address] Encounter for other screening for [...] 09/05/2023 Social Influencers of Health Screening 09/05/2023 Depression Screening 02/07/2024 Diabetes: Annual Urine Albumin-Creatinine Ratio (uACR) 05/02/2024 Diabetes: Blood Sugar Control Test (HGBA1C) 05/02/2024 COVID-19 Vaccine ( season) 2024 Influenza Vaccine (#1) 2024 , 01/01/2018, 12/11/2016, Additional history exists Breast Cancer Screening 09/27/2026 09/27/2024, 06/21 DTaP,Tdap,and Td Vaccines (3 - [...] year. Mammography location: [facility] at [address], [address] -------- FINAL REPORT -------- Dictated By: Caleb Jackson Dictated Date: 09/30/2024 07:21 ET Assigned Physician: Caleb Jackson Reviewed and Electronically Signed By: Caleb Jackson Signed Date: 09/30/2024 07:27 ET Workstation ID: [id number] Transcribed By: Self Edit Transcribed Date: 09/30/2024 07:21 ET Narrative 09/30/2024 7:27 AM EDT EXAM: SCREENING MAMMOGRAPHY, BILATERAL HISTORY: SCREENING. No additional history. COMPARISON: 06/22/23, 05/12/16 TECHNIQUE: Synthesized CC and MLO projections of each breast. Tomosynthesis of each breast in the CC and MLO projections. ADDITIONAL IMAGING: None Computer-aided detection was employed with the iCAD Hatsize AI 3-D. TISSUE DENSITY: There are scattered [...] year. Mammography location: [facility] at [address], [address] -------- FINAL REPORT -------- Dictated By: Caleb Jackson Dictated Date: 09/30/2024 07:21 ET Assigned Physician: Caleb Jackson Reviewed and Electronically Signed By: Caleb Jackson Signed Date: 09/30/2024 07:27 ET Workstation ID: [id number] Transcribed By: Self Edit Transcribed Date: 09/30/2024 [...] file Type:Not on file Address: [facility] ATTN:CLAIMS [address] [place], [place] Member Sub[place] Plan / Payer (Ef fective 2024-Present) Name:JOSEPHINE ASH Relation to Subscriber:Self Name:Josephine Ash Payer ID:[id number] Group ID:Not on file Type:Not on file Address: [facility] ATTN:CLAIMS [address] [place], [place] Care Teams Chemical Analyst Relationship Specialty Start Date End Date Rhonda Johnson MD [address] [place] [address] [place] [address] PCP - General Internal Medicine 09/10/24
== END 2024-10-21 12:01 | disposition home or self-care (01) ==
LOC: HO.HOS 11:32
PROVIDERS: PCP Internal Medicine
DX: G56.03 Carpal tunnel syndrome, bilateral upper limbs (principal)
CPT/HCPCS: 99204

== ENCOUNTER → 2024-10-21 11:31 | Outpatient (BNVA) | payer MEDICAID, SELFPAY | PROVIDERS: PCP Internal Medicine | DX: Z01.818 Encounter for other preprocedural examination (principal); G56.03 Carpal tunnel syndrome, bilateral upper limbs; R20.0 Anesthesia of skin; R20.2 Paresthesia of skin | CPT/HCPCS: 99212 ==

== ENCOUNTER 2024-11-25 10:54 | Day surgery (SDC) | payer MEDICAID, SELFPAY ==
--- OUTSIDE RECORDS SUMMARY | 2024-11-11 17:20 | XMS_ITS | Clinical Summary ---
Author Organization 175 [facility] Address [address] [place] [address] Phone Care Team Providers Care Laborer [employer] Name Role Phone Rhonda Johnson MD Primary Care Provider Allergies No known active allergies Encounters Date Type Department Care Team Description 09/27/2024 1:41 PM EDT - 09/27/2024 11:59 PM EDT Hospital En[facility] at [address] [address] Encounter for other screening for [...] Health Maintenance Due Date Last Done Comments Colorectal Cancer Screening: Colonoscopy 1962 Diabetes: Annual Foot Exam 02/11/1972 Diabetes: Annual Retina Eye Exam 02/11/1972 Meningococcal B Vaccine (1 of 4 - Increased Risk) 02/11/1972 Hepatitis A Vaccines [...] series) 2022 Cholesterol Screening (Lipid Panel) 09/05/2023 HIV Screening 09/05/2023 Hepatitis C Screening 09/05/2023 Social Influencers of Health Screening 09/05/2023 Depression Screening 02/07/2024 Diabetes: Annual Urine Albumin-Creatinine Ratio (uACR) 05/02/2024 Diabetes: Blood Sugar Control Test (HGBA1C) 05/02/2024 COVID-19 Vaccine ( - season) 2024 Influenza Vaccine (#1) 2024 , [...] Results * [facility]ammo Digital Screening w Landyr bilat (09/27/2024 1:57 PM EDT) Anatomical Region [...] year. Mammography location: [facility] at [address], [address] -------- FINAL REPORT -------- Dictated By: Caleb Jackson Dictated Date: 09/30/2024 07:21 ET Assigned Physician: Caleb Jackson Reviewed and Electronically Signed By: Caleb Jackson Signed Date: 09/30/2024 07:27 ET Workstation ID: [id number] Transcribed By: Self Edit Transcribed Date: 09/30/2024 [...] year. Mammography location: [facility] at [address], [address] -------- FINAL REPORT -------- Dictated By: Caleb Jackson Dictated Date: 09/30/2024 07:21 ET Assigned Physician: Caleb Jackson Reviewed and Electronically Signed By: Caleb Jackson Signed Date: 09/30/2024 07:27 ET Workstation ID: [id number] Transcribed By: Self Edit Transcribed Date: 09/30/2024 [...] ID:Not on file Type:Not on file Address: [facility] ATTN:CLAIMS [address] [place], [place] Sub[place] Plan / Payer ( fective 2024-Present) Name:JOSEPHINE ASH Relation to Subscriber:Self Name:Josephine Ash Payer ID:[id number] Group ID:Not on file Type:Not on file Address: [facility] ATTN:CLAIMS [id number] [place], [place] Care Teams Laborer [employer] Relationship Specialty Start Date End Date Rhonda Johnson MD [address] [place] [address] [place] [address] PCP - General Internal Medicine 09/10/24
--- OUTSIDE RECORDS SUMMARY | 2024-11-11 17:21 | XMS_ITS | Data Portability ---
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 iamonitor BGLmonitot for s/sx of hypo/hyper glycemia Post-traum atic stress disorder 61237740 F43.12 Continue:a mitriptyli ne 50 mg dailyclona zepam 0.5 mg oral tablet daily.Clon idine 0.1 mg oral tablet daily.Fluo xetine 80 mg daily. Hyperlipidemia 32876898 E78.49 rosuvastat in 40 mg dailymonit or labs Gastroesop hageal reflux disease without esophagitis 210677974 K21.9 Sucralfate Oral Tablet 1 GM History of cerebrovascular accident 160166485 Z86.73 aspirin 81 mg oral tablet daily. Nicotine dependence 5629 4008 F17.200 States she quit smoking recently.N icotine 21 mg Q 24 hrssmoking cessation Chronic ne uropathic pain 579170055 M79.2 gabapentin 400 mg TID. Anemia 687604032 D64.9 ferrous sulfate 325 mg daily.Mult ivitamin 1 tab daily. Chronic anxiety 27197242 9 F41.1 Continue:a mitriptyli ne 50 mg dailyclona zepam 0.5 mg oral tablet daily-incr eased to BID for increasing anxietyClo nidine 0.1 mg oral tablet daily.Fluo xetine 80 mg daily.sero quel Give 100 mg by mouth at bedtime for anxietypsy ch eval Difficulty passing urine 083590623 R39.198 09/06: no sx reported today.sx for 2 daysThere is no dysuria, frequency or urgency.mo nitor input/outp ut/ bladder scan prnsend urine w/reflux [id number] DAQUAN SAINI, APOLINAR [facility] on [address] [place] [address] 09/13/2022 11:56:26 09/22/2022 16:29:13 Migraine [id number] G43.909 Hx of migraine, went to [facility] with headache.T x with migraine cocktail including Tylenol, Toradol, Compazine and Benadryl along with IV fluids which significan tly improved her symptoms but presents with recurrence .already 0n amitriptyl ine at home Acute on c hronic hypoxemic respiratory failure [id number] 8307705 J96.21 09/13: no resp distress reported.H ypoxia 70% on room on presentati on.COPD exacerbati onChest x-ray with no acute diseaseTx prednisone 40 mg daily for 4 days-compl etedContin ue oxygen supplement ation as neededWill need home oxygen evaluation prior to discharge Moderate c hronic obstructive pulmonary disease 063772421 J41.0 09/13:encour aged to use prn inhaler when feeling SOB.Albute rol 2 puff(s) Inhalation 4 times a day as needed for wheezing.A lbuterol/I pratropium QID prnDulera 100 mcg-5 mcg/inh inhalation BIDSpiriva 18 mcg dailyoxyge n 2-3 liter prn 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 Hyperlipidemia 60188896 E78.49 rosuvastat in 40 mg dailymonit or labs Gastroesop hageal reflux disease without esophagitis 466356484 K21.9 Sucralfate Oral Tablet 1 GM History of cerebrovascular accident 303583807 Z86.73 aspirin 81 mg oral tablet daily. Nicotine dependence 5629 4008 F17.200 States she quit smoking recently.N icotine 21 mg Q 24 hrssmoking cessation Chronic ne uropathic pain 893843763 M79.2 gabapentin 400 mg TID. Anemia 534757340 D64.9 ferrous sulfate 325 mg daily.Mult ivitamin 1 tab daily. Chronic anxiety 95628862 9 F41.1 Continue:a mitriptyli ne 50 mg dailyclona zepam 0.5 mg oral tablet daily-incr eased to BID for increasing anxietyClo nidine 0.1 mg oral tablet daily.Fluo xetine 80 mg daily.sero quel Give 100 mg by mouth at bedtime for anxietypsy ch eval Difficulty passing urine 981338947 R39.198 09/13: voiding without difficulty .09/06: no sx reported today.sx for 2 daysThere is no dysuria, frequency or urgency.mo nitor input/outp ut/ bladder scan prnsend urine w/reflux Cough 35305287 R05.9 report chronic cough that keeping her up at night+ smokerwill add benzonatat e 200 mg at HS.smoking cessation discussed. [id number] DAQUAN SAINI, AP[facility]INAR [facility] on [address] [place] [address] 09/21/2022 12:37:30 09/28/2022 20:10:15 Migraine [id number] G43.909 09/21 stable.Hx of migraine, went to [facility] with headache.T x with migraine cocktail including Tylenol, Toradol, Compazine and Benadryl along with IV fluids which significan tly improved her symptoms but presents with recurrence .already on amitriptyl ine at home Acute on c hronic hypoxemic respiratory failure [id number] 9635935 J96.21 09/21: no resp distress reported.H ypoxia 70% on room on presentati on.COPD exacerbati onChest x-ray with no acute diseaseTx prednisone 40 mg daily for 4 days-compl etedContin ue oxygen supplement ation as neededWill need home oxygen evaluation prior to discharge Moderate c hronic obstructive pulmonary disease 902740828 J41.0 09/21: encouraged to use prn inhaler when feeling SOB.Albute rol 2 puff(s) Inhalation 4 times a day as needed for wheezing.A lbuterol/I pratropium QID prnDulera 100 mcg-5 mcg/inh inhalation BIDSpiriva 18 mcg dailyoxyge n 2-3 liter prn 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 Hyperlipidemia 94954633 E78.49 rosuvastat in 40 mg dailymonit or labs Gastroesop hageal reflux disease without esophagitis 022035940 K21.9 Sucralfate Oral Tablet 1 GM History of cerebrovascular accident 814002084 Z86.73 aspirin 81 mg oral tablet daily. Nicotine dependence 5629 4008 F17.200 09/21: continues to smoke; smoking cessation encouraged , patch offered and refused.St ates she quit smoking recently.N icotine 21 mg Q 24 hrssmoking cessation Chronic ne uropathic pain 941470635 M79.2 gabapentin 400 mg TID. Anemia 661895703 D64.9 ferrous sulfate 325 mg daily.Mult ivitamin 1 tab daily. Chronic anxiety 34345608 9 F41.1 Continue:a mitriptyli ne 50 mg dailyclona zepam 0.5 mg oral tablet daily-incr eased to BID for increasing anxietyClo nidine 0.1 mg oral tablet daily.Fluo xetine 80 mg daily.sero quel Give 100 mg by mouth at bedtime for anxietypsy ch eval Difficulty passing urine 878407570 R39.198 09/13: voiding without difficulty .09/06: no sx reported today.sx for 2 daysThere is no dysuria, frequency or urgency.mo nitor input/outp ut/ bladder scan prnsend urine w/reflux Cough 68135167 R05.9 report chronic cough that keeping her up at night+ smokerwill add benzonatat e 200 mg at HS.smoking cessation discussed. [id number] APOLINAR HAWLEY [facility] on [address] [place] [id number] 3 09/23/2022 16:18:54 09/28/2022 20:30:11 Nausea 756225643 R11.0 hx of gerdshe reports that she continues to be nausea despite taking zofran prnreports sx for 2 weeksdenie s any abdominal pain, states that she is having regular and normal bowel movementno diarrhea or constipati on, there is no vomiting. reports decrease appetite.t here is no abdominal distension promethazi ne 6.25 mg q 8 prn order for 5 days and tom re- eval. Gastroesop hageal reflux disease without esophagitis 799149391 K21.9 reports nausea for 2 weeksSucra lfate Oral Tablet 1 GMprometha zine 6.25 mg prn ordered. [id number] APOLINAR HAWLEY [facility] on [address] [place] [phone] 3 09/28/2022 08:55:47 10/05/2022 15:32:02 Nausea 660917123 R11.0 hx of gerdshe reports that she continues to be nausea despite taking zofran prn- she has not received prn as ordered, pharm did not deliver.re ports sx for 2 weeksdenie s any abdominal pain, states that she is having regular and normal bowel movementno diarrhea or constipati on, there is no vomiting. reports decrease appetite.t here is no abdominal distension promethazi ne 6.25 mg q 8 prn order for 5 days and tom re- eval_ will extend as she never was treated/me dication not delivered. Gastroesop hageal reflux disease without esophagitis 785891053 K21.9 reports nausea for 2 weeks- continuesS ucralfate Oral Tablet 1 GMprometha zine 6.25 mg prn ordered/ erxtened as she never received. [id number] APOLINAR HAWLEY [facility] on [address] [place] [address] 10/04/2022 09:56:29 10/11/2022 15:59:38 Nausea 836996294 R11.0 10/04: has improved with promethazi ne.hx of gerdshe reports that she continues to be nausea despite taking zofran prn- she has not received prn as ordered, pharm did not deliver.re ports sx for 2 weeksdenie s any abdominal pain, states that she is having regular and normal bowel movementno diarrhea or constipati on, there is no vomiting. reports decrease appetite.t here is no abdominal distension promethazi ne 6.25 mg q 8 prn order for 5 days and tom re- eval_ will extend as she never was treated/me dication not delivered. Gastroesop hageal reflux disease without esophagitis 197544684 K21.9 Sucralfate Oral Tablet 1 GMprometha zine 6.25 mg prn ordered/ extened as she never received. Migraine 23918313 G43.90 9 Hx of migraine, went to [facility] with headache.T x with migraine cocktail including Tylenol, Toradol, Compazine and Benadryl along with IV fluids which significan tly improved her symptoms but presents with recurrence .already on amitriptyl ine at home Acute on c hronic hypoxemic respiratory failure 1064571370 3283114 J96.21 10/04: on exam today she is lying in bed off O2, there is no resp issues. breathing easy and unlabored. 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 Hyperlipidemia 07684598 E78.49 rosuvastat in 40 mg dailymonit or labs History of cerebrovascular accident 520671039 Z86.73 aspirin 81 mg oral tablet daily. Nicotine dependence 5629 4008 F17.200 09/21: continues to smoke; smoking cessation encouraged , patch offered and refused.St ates she quit smoking recently.N icotine 21 mg Q 24 hrssmoking cessation Chronic ne uropathic pain 609747455 M79.2 gabapentin 400 mg TID. Anemia 960408545 D64.9 ferrous sulfate 325 mg daily.Mult ivitamin 1 tab daily. Chronic anxiety 91353524 9 F41.1 Continue:a mitriptyli ne 50 mg dailyclona zepam 0.5 mg oral tablet daily-incr eased to BID for increasing anxietyClo nidine 0.1 mg oral tablet daily.Fluo xetine 80 mg daily.sero quel Give 100 mg by mouth at bedtime for anxietypsy ch eval Difficulty passing urine 078174075 R39.198 09/13: voiding without difficulty .09/06: no sx reported today.sx for 2 daysThere is no dysuria, frequency or urgency.mo nitor input/outp ut/ bladder scan prnsend urine w/reflux Cough 13443932 R05.9 report chronic cough that keeping her up at night+ smokerwill add benzonatat e 200 mg at HS.smoking cessation discussed. [id number] APOLINAR HAWLEY [facility] on [address] [place] [address] 3 10/14/2022 08:23:26 10/19/2022 15:57:23 Fall W19.XXXA reports fall this morningnow with right elbow and left knee painright lateral arm elbow with swelling and slight redness with raised bump.xray of right upper extremity/ elbowtylen ol 975 mg and ibuprofen 600 mg now dose ordered. [id number] APOLINAR HAWLEY [facility] on [address] [place] [id number] 3 10/19/2022 13:31:55 10/25/2022 14:41:17 Type 2 diabetes mellitus 73506596 E11.9 Metformin 500 mg BIDSSC discontinu ed in hosp d/t hypoglycem iamonitor BGLmonitot for s/sx of hypo/hyper glycemia Hyperlipidemia 15185727 E78.49 rosuvastat in 40 mg dailymonit or labs History of cerebrovascular accident 786526386 Z86.73 aspirin 81 mg oral tablet daily. Nicotine dependence 5629 4008 F17.200 09/21: continues to smoke; smoking cessation encouraged , patch offered and refused.St ates she quit smoking recently.N icotine 21 mg Q 24 hrssmoking cessation Chronic ne uropathic pain 648257550 M79.2 gabapentin 400 mg TID. Anemia 969074981 D64.9 ferrous sulfate 325 mg daily.Mult ivitamin 1 tab daily. Chronic anxiety 04893912 9 F41.1 Continue:a mitriptyli ne 50 mg dailyclona zepam 0.5 mg oral tablet daily-incr eased to BID for increasing anxietyClo nidine 0.1 mg oral tablet daily.Fluo xetine 80 mg daily.sero quel Give 100 mg by mouth at bedtime for anxietypsy ch eval Difficulty passing urine 949975166 R39.198 09/13: voiding without difficulty .09/06: no sx reported today.sx for 2 daysThere is no dysuria, frequency or urgency.mo nitor input/outp ut/ bladder scan prnsend urine w/reflux Cough 17546821 R05.9 report chronic cough that keeping her up at night+ smokerwill add benzonatat e 200 mg at HS.smoking cessation discussed. [id number] APOLINAR HAWLEY [facility] on [address] [place] [id number] 3 10/27/2022 09:47:17 11/08/2022 13:08:50 Type 2 diabetes mellitus 29273861 E11.9 new ord to check FS to update to PCCMetform in 500 mg BIDSSC discontinu ed in hosp d/t hypoglycem iamonitor BGLmonitor for s/sx of hypo/hyper glycemia Hyperlipidemia 34941268 E78.49 rosuvastat in 40 mg dailymonit or labs History of cerebrovascular accident 468158598 Z86.73 aspirin 81 mg oral tablet daily. Nicotine dependence 5629 4008 F17.200 09/21: continues to smoke; smoking cessation encouraged , patch offered and refused.St ates she quit smoking recently.N icotine 21 mg Q 24 hrssmoking cessation Chronic ne uropathic pain 928937017 M79.2 gabapentin 400 mg TID. Anemia 299562337 D64.9 ferrous sulfate 325 mg daily.Mult ivitamin 1 tab daily. Chronic anxiety 01626749 9 F41.1 Continue:a mitriptyli ne 50 mg dailyclona zepam 0.5 mg oral tablet daily-incr eased to BID for increasing anxietyClo nidine 0.1 mg oral tablet daily.Fluo xetine 80 mg daily.sero quel Give 100 mg by mouth at bedtime for anxietypsy ch eval Cough 33630558 R05.9 stable, able to sleep at night.repo rt chronic cough that keeping her up at night+ smokerwill add benzonatat e 200 mg at HS.smoking cessation discussed. [id number] APOLINAR HAWLEY [facility] on [address] [place] [address] 11/02/2022 07:09:07 11/09/2022 11:07:43 Type 2 diabetes mellitus 50937161 E11.9 FS monitored for 6 days ranged from 87-110Metf ormin 500 mg BIDSSC discontinu ed in hosp d/t hypoglycem iamonitor BGLmonitor for s/sx of hypo/hyper glycemia Hyperlipidemia 79014294 E78.49 rosuvastat in 40 mg dailymonit or labs History of cerebrovascular accident 971877091 Z86.73 aspirin 81 mg oral tablet daily. Nicotine dependence 5629 4008 F17.200 11/02: smoking cessation approach, patch offered and refused.Ni cotine 21 mg Q 24 hrssmoking cessation Chronic ne uropathic pain 771518947 M79.2 gabapentin 400 mg TID Anemia 988606101 D64.9 ferrous sulfate 325 mg daily.Mult ivitamin 1 tab daily. Chronic anxiety 92431969 9 F4.1 : She is followed by and was seen on 11/01 with recommenda tion for med adjustment d/t pt reporting a traumatic event that happened to her grand-daug hter causing her to have increase anxiety. amitriptyl ine 50 mg dailyclona zepam 0.5 mg oral tablet BID with prn qdClonidin e 0.1 mg oral tablet daily.Fluo xetine 80 mg daily.sero quel Give 100 mg by mouth at bedtime for anxietypsy ch eval Cough 45058642 R05.9 controlled stable, able to sleep at night.repo rt chronic cough that keeping her up at night+ smokercont inue benzonatat e 200 mg at HS. [id number] APOLINAR HAWLEY [facility] [address] [place] [address] 11/09/2022 07:14:30 11/17/2022 10:53:16 Type 2 diabetes mellitus 79481433 E11.9 FS monitored for 6 days ranged from 87-110Metf ormin 500 mg BIDSSC discontinu ed in hosp d/t hypoglycem iamonitor BGLmonitor for s/sx of hypo/hyper glycemia Hyperlipidemia 12268020 E78.49 rosuvastat in 40 mg dailymonit or labs History of cerebrovascular accident 932952491 Z86.73 aspirin 81 mg oral tablet daily. Nicotine dependence 5629 4008 F17.200 smoking cessation approach, patch offered and refused.Ni cotine 21 mg Q 24 hrssmoking cessation Chronic ne uropathic pain 644131390 M79.2 gabapentin 400 mg TID Anemia 249796927 D64.9 ferrous sulfate 325 mg daily.Mult ivitamin 1 tab daily. Chronic anxiety 41414283 9 F4.1 She is followed by and was seen on 11/01 with recommenda tion for med adjustment d/t pt reporting a traumatic event that happened to her grand-daug hter causing her to have increase anxiety. Today she tells me that her anxiety is better. amitriptyl ine 50 mg dailyclona zepam 0.5 mg oral tablet TIDClonidi ne 0.1 mg oral tablet daily.Fluo xetine 80 mg daily.sero quel Give 100 mg by mouth at bedtime for anxietypsy ch eval Cough 96536121 R05.9 controlled stable, able to sleep at night.repo rt chronic cough that keeping her up at night+ smokercont inue benzonatat e 200 mg at HS. [id number] Miriam Mcneill MD [facility] on [address] [place] [phone] 3 11/11/2022 06:22:50 11/17/2022 11:42:26 Chronic obstructive pulmonary disease 31868003 J41.0 albuterol HFA: 2 puffs q6h prnDuoneb updrafts q6h prnSpiriva 18 mcg: one inhalation dailyDuler a 100-5: 2 puffs bidwill monitor Type 2 padilla betes mellitus 59408680 E11.9 metformin 500 mg bid will monitor Mixed anxi ety and depressive disorder 509994955 F41.8 clonidine 0.1 mg tidclonaze asha 0.5 mg tidfluoxet ine 80 mg dailygabap entin 400 mg tidquetiap ine 100 mg at hswill monitor Chronic pain 35759423 G8 9.29 amitriptyl ine 50 mg dailyLidoc lupillo patch to back dailyibupr ofen 600 mg q6h prnAPAP 975 mg q6h prnwill monitor Essential hypertension 83577599 I10 clonidine 0.1 mg tid will monitor Opioid dependence 902357 00 F11.20 methadone 155 mg dailyfu methadone clinicwill monitor Gastroesop hageal reflux disease without esophagitis 579897814 K21.9 sucralfate 1 gm tidwill monitor History of cerebrovascular accident 615434903 Z86.73 rosuvastat in 40 mg daily ASA 81 mg daily will monitor [id number] APOLINAR HAWLEY [facility] on [address] [place] [phone] 3 11/15/2022 08:51:56 11/17/2022 12:19:10 Type 2 diabetes mellitus 82175002 E11.9 stableMetf ormin 500 mg BIDSSC discontinu ed in hosp d/t hypoglycem iamonitor BGLmonitor for s/sx of hypo/hyper glycemia Hyperlipidemia 89034360 E78.49 rosuvastat in 40 mg dailymonit or labs History of cerebrovascular accident 125571979 Z86.73 aspirin 81 mg oral tablet daily. Nicotine dependence 5629 4008 F17.200 smoking cessation approach, patch offered and refused.Ni cotine 21 mg Q 24 hrs1010: smoking cessation encouraged , she os c/o possible pna but continues to smoke. Chronic ne uropathic pain 778451778 M79.2 gabapentin 400 mg TID Anemia 911098058 D64.9 ferrous sulfate 325 mg daily.Mult ivitamin 1 tab daily. Chronic anxiety 05164378 9 F41.1 amitriptyl ine 50 mg dailyclona zepam 0.5 mg oral tablet TIDClonidi ne 0.1 mg oral tablet daily.Fluo xetine 80 mg daily.sero quel Give 100 mg by mouth at bedtime for anxietypsy ch eval Moderate c hronic obstructive pulmonary disease 577230984 J41.0 11/15: increasing SOB with congestion cough- with yellow sputum, breathing is easy and unlabored. 11/14:WBC 20- she has hx of splenectom y -will order chest xray due to sx10: Stat chest xray showed Patchy modest bilateral airspace disease. suggestive of pneumonias tarted on augmentin 875/125 and doxycyline 100mg BID for 7 daysschedu led albuterol neb tx TID for 3 dayssmokin g cessation while being treated for pna encouraged , nicotine patch offered, she will think about it. encouraged to use prn inhaler when feeling SOB.Albute rol 2 puff(s) Inhalation 4 times a day as needed for wheezing.A lbuterol/I pratropium QID prnDulera 100 mcg-5 mcg/inh inhalation BIDSpiriva 18 mcg dailyoxyge n 2-3 liter prn Pain in palate 090851351 K13.79 reports soreness on soft palate from denturesma ll red area noted; not ulceratedi nstructed to rinse with warm salt water TID prnwill order oragel gel tid prn [id number] APOLINAR HAWLEY [facility] [address] [place] [address] 11/21/2022 11:11:49 11/23/2022 12:19:18 Pneumonia 498018815 J18.9 11/21: resolving, breathingh as improved, reports feeling 100% better. smoikong cessation encouraged again. 11/15: increasing SOB with congestion cough- with yellow sputum, breathing is easy and unlabored. 11/14:WBC 20- she has hx of splenectom y -will order chest xray due to sx1: Stat chest xray showed Patchy modest bilateral airspace disease. suggestive of pneumonias tarted on augmentin 875/125 and doxycyline 100mg BID for 7 daysschedu led albuterol neb tx TID for 3 dayssmokin g cessation while being treated for pna encouraged , nicotine patch offered, she will think about it. [id number] APOLINAR HAWLEY [facility] on [address] [place] [phone] 3 11/25/2022 07:37:22 11/29/2022 11:38:02 Moderate chronic obstructive pulmonary disease 329969570 J41.0 11/25: chronic non productive cough with upper airway congestion .breathing is mildly labored which is her baseline. LS are with out wheeziness , coarseness or rales.she continues to smoke, she tells me she is trying to stop but refused nicotine patch again.alecia buckley takes benzonatat e at hs with +effect, will scheduled TID.fluids encouraged she is a risk for dehydratio n as she tells me she does not drink enough fluids. continue:e ncouraged to use prn inhaler when feeling SOB.Albute rol 2 puff(s) Inhalation 4 times a day as needed for wheezing.A lbuterol/I pratropium QID prnDulera 100 mcg-5 mcg/inh inhalation BIDSpiriva 18 mcg dailyoxyge n 2-3 liter prn Chronic cough 20322007 R 05.3 due to smoking.sm oking cession - refused nicotine patchbenzo natate 200 mg TID [id number] APOLINAR HAWLEY [facility] on [address] [place] [phone] 3 12/01/2022 08:15:02 12/08/2022 15:59:24 Moderate chronic obstructive pulmonary disease 784444303 J41.0 12/01: Breathing is easy and unlaboreds he tells me that cough has improved but continues. i know it because i keep smoking . continue:e ncouraged to use prn inhaler when feeling SOB.Albute rol 2 puff(s) Inhalation 4 times a day as needed for wheezing.A lbuterol/I pratropium QID prnDulera 100 mcg-5 mcg/inh inhalation BIDSpiriva 18 mcg dailyoxyge n 2-3 liter prn Chronic cough [id number] R 05.3 12/01: She reports cough continues but has improved.C ontinues to smiokes, she tells me she is going to try hard to stop.ada pan cessation, nicotine patch offered and refused again. [id number] APOLINAR HAWLEY [facility] on [address] [place] [address] 12/07/2022 07:02:14 12/09/2022 08:48:45 Moderate chronic obstructive pulmonary disease [id number] J41.0 12/07: see hpiBreathi ng is easy and unlaboredC hest x-ray ordered.sm oking cessation- nicotine patch ordered and refused,pt educated on the effect of smoking and how it impedes healing. continue:e ncouraged to use prn inhaler when feeling SOB.Albute rol 2 puff(s) Inhalation 4 times a day as needed for wheezing.A lbuterol/I pratropium QID prnDulera 100 mcg-5 mcg/ inhalation BIDSpiriva 18 mcg dailyoxyge n 2-3 liter prn Chronic cough 83352083 R 05.3 12/07: today she reports worsening cough with sob and expectoran t. Continues to smokes, she tells me she is going to try hard to stop.smoki ng cessation, nicotine patch offered and refused again.ches t xray ordered.co ntinue benzonatat e Chronic depression 78075 0009 F34.1 12/07: reports that her mood is stable/imp roving, she believes therapy is helping her to deal with recent family trauma.ami triptyline 50 mg dailyclona zepam 0.5 mg oral tablet TIDClonidi ne 0.1 mg oral tablet daily.Fluo xetine 80 mg daily.sero quel Give 100 mg by mouth at bedtime for anxietypsy ch eval Chronic anxiety [id number] 9 F41.1 see above [id number] Carlita Tamayo [facility] on [address] [place] [phone] 12/16/2022 10:33:05 01/06/2023 15:48:45 Moderate chronic obstructive pulmonary disease 462662026 J41.0 see hpiBreathi ng is easy and unlaboredC hest x-ray ordered.sm oking cessation- nicotine patch ordered and refused,pt educated on the effect of smoking and how it impedes healing. continue:e ncouraged to use prn inhaler when feeling SOB.Albute rol 2 puff(s) Inhalation 4 times a day as needed for wheezing.A lbuterol/I pratropium QID prnDulera 100 mcg-5 mcg/ inhalation BIDSpiriva 18 mcg dailyoxyge n 2-3 liter prn Chronic cough 10591122 R 05.3 today she reports worsening cough with sob and expectoran t. not new, dry cough Continues to smokes, she tells me she is going to try hard to stop.smoki ng cessation, nicotine patch offered and refused again.ches t xray ordered.co ntinue benzonatat e Chronic depression 38244 0009 F34.1 reports that her mood is stable/imp roving, she believes therapy is helping her to deal with recent family trauma.ami triptyline 50 mg dailyclona zepam 0.5 mg oral tablet TIDClonidi ne 0.1 mg oral tablet daily.Fluo xetine 80 mg daily.sero quel Give 100 mg by mouth at bedtime for anxietypsy ch eval Chronic anxiety [id number] 9 F41.1 see above [id number] Carlita Tamayo [facility] on [address] [place] [phone] 12/23/2022 09:27:09 12/27/2022 11:03:50 Moderate chronic obstructive pulmonary disease [id number] J41.0 usual SOB on O2 via NC 2LChest x-ray ordered. last week negative.s moking cessation- nicotine patch ordered and refused,pt educated on the effect of smoking and how it impedes healing. continue:e ncouraged to use prn inhaler when feeling SOB.Albute rol 2 puff(s) Inhalation 4 times a day as needed for wheezing.A lbuterol/I pratropium QID prnDulera 100 mcg-5 mcg/ inhalation BIDSpiriva 18 mcg dailyoxyge n 2-3 liter prn Chronic cough 65774092 R 05.3 Continues to smokes, she tells me she is going to try hard to stop.smoki ng cessation, nicotine patch offered and refused again.cont inue benzonatat e Chronic depression 80659 0009 F34.1 reports that her mood is stable/imp roving, she believes therapy is helping her to deal with recent family trauma.ami triptyline 50 mg dailyclona zepam 0.5 mg oral tablet TIDClonidi ne 0.1 mg oral tablet daily.Fluo xetine 80 mg daily.sero quel Give 100 mg by mouth at bedtime for anxietypsy ch eval Chronic anxiety [id number] 9 F41.1 see above Edema of l ower extremity 028900068 R60.0 RLE worsening with painbedsid e ultrasound ordered. [id number] APOLINAR HAWLEY [facility] on [address] [place] [phone] 12/30/2022 10:29:10 01/11/2023 12:20:38 Moderate chronic obstructive pulmonary disease 277481449 J41.0 At baseline status with usual shortness of breath, continues to smokes despite ongoing skoking cessation discussion s. continue:e ncouraged to use prn inhaler when feeling SOB.Albute rol 2 puff(s) Inhalation 4 times a day as needed for wheezing.A lbuterol/I pratropium QID prnDulera 100 mcg-5 mcg/inh inhalation BIDSpiriva 18 mcg dailyoxyge n 2-3 liter prn Chronic cough 42922763 R 05.3 Continues to smokes,con tinue benazonate 100 mg as ordered.sm oking cessation, nicotine patch offered and refused again. [id number] APOLINAR HAWLEY [facility] on [address] [place] [phone] 01/09/2023 12:47:53 01/12/2023 15:48:25 Dyspnea 514361540 R06.00 see hpicontinu e with O2 as neededLS decreased, breathing mildly labored, able to speak in sentences. rapid covid swab negativesw ab for influenza , RSVmonitor VS Qshiftcont inue support care -[facility] [place] prn, tylenol, encouraged fluidsches t xraygive now dose of prednisone 40 mg and then scheduled for 4 more days.start Azithromyc in zpak for 5 days .CBC/diff- BMP [id number] APOLINAR HAWLEY [facility] on [address] [place] [phone] 02/07/2023 08:25:30 02/24/2023 10:28:22 Pain of shoulder region 63255726 M25.519 see hpiabducti on and adduction without painreport s pain with forward and backward flexionthe re is no swelling noted to extremity+ CMS noted 4: xray ordered by admissions gate attendant provider, not yet completed. [id number] Martin Yusuf MD [facility] on [address] [place] [phone] 02/15/2023 12:47:51 02/22/2023 17:49:01 Hematoma [id number] M79.81 appears to be hematoma secondary to strainmoni tor site and need for ULexam reassuring watchful waitingof note on ASA 81 mg qd [id number] Miriam Mcneill MD [facility] on [address] [place] [phone] 02/17/2023 06:25:22 02/22/2023 18:03:49 Chronic obstructive pulmonary disease 53650335 J41.0 albuterol HFA: 2 puffs q6h prnDuoneb updrafts q6h prnSpiriva 18 mcg: one inhalation dailyDuler a 100-5: 2 puffs bidwill monitor Type 2 padilla betes mellitus 93346385 E11.9 metformin 500 mg bid will monitor 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 clonidine 0.1 mg tidclonaze asha 0.5 mg tidfluoxet ine 80 mg dailygabap entin 400 mg tidquetiap ine 100 mg at hsamitript yline 50 mg dailywill monitor Essential hypertension 72497534 I10 clonidine 0.1 mg tidfurosem danielle 10 mg dailywill monitor Gastroesop hageal reflux disease without esophagitis 684688972 K21.9 sucralfate 1 gm tidwill monitor History of cerebrovascular accident 777802827 Z86.73 rosuvastat in 40 mg daily ASA 81 mg daily will monitor [id number] BEAN DAO NP [facility] on [address] [place] [address] 03/06/2023 09:59:22 03/08/2023 16:42:38 Chronic obstructive pulmonary disease 66801651 J41.0 albuterol HFA: 2 puffs q6h prnDuoneb updrafts q6h prnSpiriva 18 mcg: one inhalation dailyDuler a 100-5: 2 puffs bidwill monitor Type 2 padilla betes mellitus 94608292 E11.9 metformin 500 mg bid will monitor Mixed anxi ety and depressive disorder 947462690 F41.8 clonidine 0.1 mg tidclonaze asha 0.5 mg tidfluoxet ine 80 mg dailygabap entin 400 mg tidquetiap ine 100 mg at hsamitript yline 50 mg dailywill monitor Essential hypertension 99466276 I10 clonidine 0.1 mg tidfurosem danielle 10 mg dailywill monitor Gastroesop hageal reflux disease without esophagitis 396543466 K21.9 sucralfate 1 gm tidwill monitor History of cerebrovascular accident 830350786 Z86.73 rosuvastat in 40 mg daily ASA 81 mg daily will monitor Pain of sh oulder region 11486955 M25.519 see hpiabducti on and adduction without painreport s pain with forward and backward flexionthe re is no swelling noted to extremity+ CMS noted 4: xray ordered by admissions gate attendant provider, not yet completed. Health Concerns Section Related Observation LastModified by Organization Detai ls LastModified Time None Recorded Concern Status LastModified by Organization Details LastModified Time None Recorded Advance Directives Directive Y: DNR , may intubate and ve ntilate and transfer, use dialysis, art hydration and nutrition. Payers Insurance Date Sequence Insurance Name Policy Number Policy Sinclair Covered Member ID Sinclair Member ID Guarantor Name 06/03/2020 1 [facility] (MEDICAID HMO) [id number] Josephine Mack [id number] Josephine Mack 02/07/2023 1 [place] [facility] Josephine A Mack [id number] Josephine Mack 06/03/2020 1 [facility] (MEDICAID HMO) [id number] Josephine Mack [id number] Josephine Mack 01/10/2023 1 [facility] PL[facility] (MEDICAID HMO) [id number] Josephine Mack [id number] Josephine Mack Notes Date Note Type Note Provider Name and Address Organization Details Recorded Time 01/09/2023 text/html ROS as noted in the HPI Josephine is a 62 yr old O2 dependent patient seen today for acute rounding visit per nursing request for shortness of breath. On exam she is lying in bed, her breathing is noted mildly labored she tells me she feels ill for the past 2 days with subjective fever, increasing shortness of breath and body-aches . She appears malaise, there is no changes with appetite. She has not smoked today. Past medical history for CVA x4 with residual left-sided weakness, COPD on home oxygen 3 L as needed, migraine, obesity, depression, type 2 diabetes, GERD, iron deficiency anemia, chronic active smoker. APOLINAR HAWLEY [address] [facility], [address], [place], [address], [employer] 01/09/2023 17:22:14 02/07/2023 text/html ROS as noted in the HPI Patient is a 62 yr old female seen today for acute rounding visit post fall on 02/06/23. Patient is stable, reports tripping over bed cord and falling forward onto her right shoulder trying to break fall, also repoets bilateral knee pain, but states that is manageable. Denies hitting her head. Past medical history for CVA x4 with residual left-sided weakness, COPD on home oxygen 3 L as needed, migraine, obesity, depression, type 2 diabetes, GERD, iron deficiency anemia, chronic active smoker. APOLINAR HAWLEY [address] [facility], [address], [place], [address], Recombine 02/07/2023 14:48:28 02/15/2023 text/html Patient is a 63 yo female resident seen for acute rounding. Patient was lowering the window in her room 2 days prior felt a strain now with bruise and tenderness mid right bicep Martin Yusuf MD [address] [facility], [address], [place], [address], [facility] 02/15/2023 12:51:55 02/17/2023 text/html This 63 year old female subacute rehab patient is seen today for routine rounding visit. Medical history is remarkable for history of CVA with residual left sided weakness, COPD on home oxygen prn, DM, PTSD, opioid use disorder in remission on maintenance agonist therapy, migraine, GERD Patient was admitted to [facility] on 08/29/22 after hospital stay for fall out of bed hitting her eye on floor and COPD exacerbation. Patient developed cough and shortness of breath in early January 2023. She was treated with prednisone and azithromycin for COPD exacerbation and symptoms resolved. Patient has worked with rehab services at facility and is eagerly waiting for discharge back to community which is planned for next week. Today patient is walking with walker in hallway wearing her oxygen. She tells me how excited she is to be planning discharge from facility in 2 weeks. MOLST: DNR, DNI, DNH - signed 08/29/22 Miriam Mcneill MD [address] [place] [address], [address], [place], [address], [facility] 02/17/2023 13:00:59 03/06/2023 text/html ROS as noted in the HPI seen today for discharge summary-63 year old female subacute rehab patient.Patient was admitted to [facility] on 08/29/22 after hospital stay for fall out of bed hitting her eye on floor and COPD exacerbation.Patie nt developed cough and shortness of breath in early January 2023. She was treated with prednisone and azithromycin for COPD exacerbation and symptoms resolved.Patient has worked with rehab services at facility and is eagerly waiting for discharge back to community which is planned for next week. CAOx3 sitting on side of bed, she is very excited to be going home, no resp distress or discomfort noted, lungs clear dim, eating and drinking well, medically stable, staff report no concerns BEAN DAO NP [address] [facility], [address], [place], [address], [facility] [email or web address] [facility] 03/06/2023 10:09:54 OBGyn Episode No OBEpisode recorded.
[2024-11-25 10:15] VITALS: BMI 42.4
[2024-11-25 11:46] VITALS: BP 105/63; PULSE 63; RESP 18; TEMP 35.8; O2SAT 96
--- NOTE | 2024-11-25 12:44 | P.OP_ITS ---
Operative Note Operative Note Date of Service: 11/25/24 Narrative: Preop diagnosis: 1. Left Carpal tunnel syndrome Postop diagnosis: same Procedure: 1. Left Carpal tunnel release Surgeon: Yara Zelaya MD Vegetable Cutter: Varghese DEL VALLE Anesthesia: local block using 1% lidocaine with epinephrine Findings: Thickened transverse carpal ligament. EBL: Less than 5 mL Specimens: None Complications: None Disposition: Brought to recovery room in stable condition Plan: Follow-up for 10-14 days for wound check and suture removal Indications: The patient is 64 years old, with left carpal tunnel syndrome that has been unresponsive to nonoperative management. The risks and benefits of operative treatment including but not limited to risk of damage to blood vessels, nerves, tendons, infection, persistent pain, persistent symptoms, or possible need for additional surgery were discussed with the patient and the patient wishes to proceed with surgery. Procedure: Once consent was obtained a local block was performed using a combination of 1% lidocaine with epinephrine. The patient was then brought back to the operating suite and placed on the operative table in supine position. The left upper extremity was prepped and draped in a standard surgical fashion. Once assured that we had a good block, a 2.0 cm longitudinal incision was made centered over the carpal tunnel. The incision was made through the skin to the subcutaneous tissues using a #15 blade. Dissection was made down to the level of the transverse carpal ligament with care being taken to protect the palmar cutaneous nerve. Once the transverse carpal ligament was clearly visualized, a longitudinal incision was made in the transverse carpal ligament 1st using a #15 blade, then using tenotomy scissors under direct visualization. Care was taken to look for and protect the motor branch of the median nerve when seen in this area. Once satisfied with our carpal tunnel release the wound was copiously irrigated with normal saline and hemostasis was obtained with a brief period of local pressure. The skin edges were reapproximated with some 5.0 nylon suture material and a sterile dressing was applied. The patient appears to have tolerated the procedure well and with no complications. All digits were well vascularized at the conclusion of the case.
--- NOTE | 2024-11-25 12:44 | MHC.SHP ---
Pre-Procedural Eval Section A - 24 Hr Update-Section A only Date of Service: 11/25/24 The patient is an INPATIENT: No Changes since office visit: No Cold of Flu in the past 2 weeks, No New Medical Problems, No Changes in Medication and No Patient answered all questions The patient has been examined within 24 hours of the surgical procedure. The History & Physical has been completed within 30 days and I have reviewed it.: Yes Section B - Complete if H&P > 30 days Chief Complaint: Carpal tunnel syndrome, left upper limb Allergies: Allergies Allergy/AdvReac Type Severity Reaction Status Date / Time No Known Allergies (No Known Allergy Verified 10/21/24 11:33 Allergies*) Plan Diagnosis/Plan: Unchanged I have reviewed the history and physical and performed a pertinent physical examination on my patient. No changes have occurred unless specified. Time Spent With Patient Time: Total time managing care of this patient today ____ minutes.
[2024-11-25 13:50] VITALS: BP 118/73; PULSE 66; RESP 16; O2SAT 94
== END 2024-11-25 14:10 | disposition home or self-care (01) ==
PROVIDERS: PCP Internal Medicine; Visit Provider Orthopaedic Surgery
PROC: (CPT 64721; principal; 2024-11-25 15:50)
DX: G56.02 Carpal tunnel syndrome, left upper limb (principal); R20.0 Anesthesia of skin; R20.2 Paresthesia of skin; G62.9 Polyneuropathy, unspecified; I10 Essential (primary) hypertension; E78.5 Hyperlipidemia, unspecified; E11.9 Type 2 diabetes mellitus without complications; R60.0 Localized edema; K21.9 Gastro-esophageal reflux disease without esophagitis; Z86.73 Personal history of transient ischemic attack (TIA), and cerebral infarction without residual deficits; F32.A Depression, unspecified; F41.9 Anxiety disorder, unspecified; E66.9 Obesity, unspecified; Z68.36 Body mass index [BMI] 36.0-36.9, adult; Z90.81 Acquired absence of spleen; Z90.49 Acquired absence of other specified parts of digestive tract; Z96.641 Presence of right artificial hip joint; Z87.891 Personal history of nicotine dependence
CPT/HCPCS: 64721; J0165; J2003

== ENCOUNTER → 2024-11-25 10:54 | Outpatient (BNV) | payer MEDICAID, SELFPAY | PROVIDERS: PCP Internal Medicine; Visit Provider Orthopaedic Surgery | DX: G56.02 Carpal tunnel syndrome, left upper limb (principal) | CPT/HCPCS: 64721 ==

== ENCOUNTER 2024-12-06 10:15 | Outpatient (AMB) | payer MEDICAID, SELFPAY ==
[2024-12-06 10:18] VITALS: BP 104/52; PULSE 59; BMI 43.0
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
--- OUTSIDE RECORDS SUMMARY | 2024-12-06 11:36 | XMS_ITS | Data Portability ---
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 discussed. [id number] DAQUAN SAINI, APOLINAR [facility] on [address] [place] [address] 09/21/2022 12:37:30 09/28/2022 20:10:15 Migraine 22368237 G43.909 09/21 stable.Hx of migraine, went to [facility] with headache.T x with migraine cocktail including Tylenol, Toradol, Compazine and Benadryl along with IV fluids which significan tly improved her symptoms but presents with recurrence .already on amitriptyl ine at home Acute on c hronic hypoxemic respiratory failure [id number] J96.21 09/21: no resp distress reported.H ypoxia 70% on room on presentati on.COPD exacerbati onChest x-ray with no acute diseaseTx prednisone 40 mg daily for 4 days-compl etedContin ue oxygen supplement ation as neededWill need home oxygen evaluation prior to discharge Moderate c hronic obstructive pulmonary disease 232441705 J41.0 09/21: encouraged to use prn inhaler when feeling SOB.Albute rol 2 puff(s) Inhalation 4 times a day as needed for wheezing.A lbuterol/I pratropium QID prnDulera 100 mcg-5 mcg/inh inhalation BIDSpiriva 18 mcg dailyoxyge n 2-3 liter prn 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 Hyperlipidemia 33870622 E78.49 rosuvastat in 40 mg dailymonit or labs Gastroesop hageal reflux disease without esophagitis 929128624 K21.9 Sucralfate Oral Tablet 1 GM History of cerebrovascular accident 032521436 Z86.73 aspirin 81 mg oral tablet daily. Nicotine dependence 5629 4008 F17.200 09/21: continues to smoke; smoking cessation encouraged , patch offered and refused.St ates she quit smoking recently.N icotine 21 mg Q 24 hrssmoking cessation Chronic ne uropathic pain 471194829 M79.2 gabapentin 400 mg TID. Anemia 583176281 D64.9 ferrous sulfate 325 mg daily.Mult ivitamin 1 tab daily. Chronic anxiety 93285464 9 F41.1 Continue:a mitriptyli ne 50 mg dailyclona zepam 0.5 mg oral tablet daily-incr eased to BID for increasing anxietyClo nidine 0.1 mg oral tablet daily.Fluo xetine 80 mg daily.sero quel Give 100 mg by mouth at bedtime for anxietypsy ch eval Difficulty passing urine 011228174 R39.198 09/13: voiding without difficulty .09/06: no sx reported today.sx for 2 daysThere is no dysuria, frequency or urgency.mo nitor input/outp ut/ bladder scan prnsend urine w/reflux Cough 56735957 R05.9 report chronic cough that keeping her up at night+ smokerwill add benzonatat e 200 mg at HS.smoking cessation discussed. [id number] APOLINAR HAWLEY [facility] on [address] [place] [phone] 09/23/2022 16:18:54 09/28/2022 20:30:11 Nausea 627885403 R11.0 hx of gerdshe reports that she [...] eval. Gastroesop hageal reflux disease without esophagitis 878838238 K21.9 reports nausea for 2 weeksSucra lfate Oral Tablet 1 GMprometha zine 6.25 mg prn ordered. [id number] APOLINAR HAWLEY [facility] on [address] [place] [phone] 3 09/28/2022 08:55:47 10/05/2022 15:32:02 Nausea 156242943 R11.0 hx of gerdshe reports that she [...] delivered. Gastroesop hageal reflux disease without esophagitis 575182603 K21.9 reports nausea for 2 weeks- continuesS ucralfate Oral Tablet 1 GMprometha zine 6.25 mg prn ordered/ erxtened as she never received. [id number] APOLINAR HAWLEY [facility] on [address] [place] [address] 10/04/2022 09:56:29 10/11/2022 15:59:38 Nausea 250143690 R11.0 10/04: has improved with promethazi ne.hx [...] delivered. Gastroesop hageal reflux disease without esophagitis 976749734 K21.9 Sucralfate Oral Tablet 1 GMprometha zine 6.25 mg prn ordered/ extened as she never received. Migraine 50527192 G43.90 9 Hx of migraine, went to [facility] with headache.T x with migraine cocktail including Tylenol, Toradol, Compazine and Benadryl along with IV fluids which significan tly improved her symptoms but presents with recurrence .already on amitriptyl ine at home Acute on c hronic hypoxemic respiratory failure [id number] 8004950 J96.21 10/04: on exam today she is lying in bed off O2, there is no resp issues. breathing easy and unlabored. 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 Hyperlipidemia 99701518 E78.49 rosuvastat in 40 mg dailymonit or labs History of cerebrovascular accident 164493830 Z86.73 aspirin 81 mg oral tablet daily. Nicotine dependence 5629 4008 F17.200 09/21: continues to smoke; smoking cessation encouraged , patch offered and refused.St ates she quit smoking recently.N icotine 21 mg Q 24 hrssmoking cessation Chronic ne uropathic pain 271519507 M79.2 gabapentin 400 mg TID. Anemia 135040263 D64.9 ferrous sulfate 325 mg daily.Mult ivitamin 1 tab daily. Chronic anxiety 95502437 9 F41.1 Continue:a mitriptyli ne 50 mg dailyclona zepam 0.5 mg oral tablet daily-incr eased to BID for increasing anxietyClo nidine 0.1 mg oral tablet daily.Fluo xetine 80 mg daily.sero quel Give 100 mg by mouth at bedtime for anxietypsy ch eval Difficulty passing urine 335163900 R39.198 09/13: voiding without difficulty .09/06: no sx reported today.sx for 2 daysThere is no dysuria, frequency or urgency.mo nitor input/outp ut/ bladder scan prnsend urine w/reflux Cough 55521595 R05.9 report chronic cough that keeping her up at night+ smokerwill add benzonatat e 200 mg at HS.smoking cessation discussed. [id number] APOLINAR HAWLEY [facility] on [address] [place] [address] 10/14/2022 08:23:26 10/19/2022 15:57:23 Fall W19.XXXA reports fall this morningnow with right elbow and left knee painright lateral arm elbow with swelling and slight redness with raised bump.xray of right upper extremity/ elbowtylen ol 975 mg and ibuprofen 600 mg now dose ordered. [id number] APOLINAR HAWLEY [facility] on [address] [place] [phone] 10/19/2022 13:31:55 10/25/2022 14:41:17 Type 2 diabetes mellitus 34021695 E11.9 Metformin 500 mg BIDSSC discontinu ed in hosp d/t hypoglycem iamonitor BGLmonitot for s/sx of hypo/hyper glycemia Hyperlipidemia 94734906 E78.49 rosuvastat in 40 mg dailymonit or labs History of cerebrovascular accident 251578465 Z86.73 aspirin 81 mg oral tablet daily. Nicotine dependence 5629 4008 F17.200 09/21: continues to smoke; smoking cessation encouraged , patch offered and refused.St ates she quit smoking recently.N icotine 21 mg Q 24 hrssmoking cessation Chronic ne uropathic pain 027903140 M79.2 gabapentin 400 mg TID. Anemia 960525848 D64.9 ferrous sulfate 325 mg daily.Mult ivitamin 1 tab daily. Chronic anxiety 92212616 9 F41.1 Continue:a mitriptyli ne 50 mg dailyclona zepam 0.5 mg oral tablet daily-incr eased to BID for increasing anxietyClo nidine 0.1 mg oral tablet daily.Fluo xetine 80 mg daily.sero quel Give 100 mg by mouth at bedtime for anxietypsy ch eval Difficulty passing urine 805546996 R39.198 09/13: voiding without difficulty .09/06: no sx reported today.sx for 2 daysThere is no dysuria, frequency or urgency.mo nitor input/outp ut/ bladder scan prnsend urine w/reflux Cough 79939840 R05.9 report chronic cough that keeping her up at night+ smokerwill add benzonatat e 200 mg at HS.smoking cessation discussed. [id number] APOLINAR HAWLEY [facility] on [address] [place] [address] 10/27/2022 09:47:17 11/08/2022 13:08:50 Type 2 diabetes mellitus 77285788 E11.9 new ord to check FS to update to PCCMetform in 500 mg BIDSSC discontinu ed in hosp d/t hypoglycem iamonitor BGLmonitor for s/sx of hypo/hyper glycemia Hyperlipidemia 06995416 E78.49 rosuvastat in 40 mg dailymonit or labs History of cerebrovascular accident 938653529 Z86.73 aspirin 81 mg oral tablet daily. Nicotine dependence 5629 4008 F17.200 09/21: continues to smoke; smoking cessation encouraged , patch offered and refused.St ates she quit smoking recently.N icotine 21 mg Q 24 hrssmoking cessation Chronic ne uropathic pain 401065457 M79.2 gabapentin 400 mg TID. Anemia 635405446 D64.9 ferrous sulfate 325 mg daily.Mult ivitamin 1 tab daily. Chronic anxiety 06258181 9 F41.1 Continue:a mitriptyli ne 50 mg dailyclona zepam 0.5 mg oral tablet daily-incr eased to BID for increasing anxietyClo nidine 0.1 mg oral tablet daily.Fluo xetine 80 mg daily.sero quel Give 100 mg by mouth at bedtime for anxietypsy ch eval Cough 11714381 R05.9 stable, able to sleep at night.repo rt chronic cough that keeping her up at night+ smokerwill add benzonatat e 200 mg at HS.smoking cessation discussed. [id number] APOLINAR HAWLEY [facility] on [address] [place] [address] 11/02/2022 07:09:07 11/09/2022 11:07:43 Type 2 diabetes mellitus 78702881 E11.9 FS monitored for 6 days ranged from 87-110Metf ormin 500 mg BIDSSC discontinu ed in hosp d/t hypoglycem iamonitor BGLmonitor for s/sx of hypo/hyper glycemia Hyperlipidemia 86172764 E78.49 rosuvastat in 40 mg dailymonit or labs History of cerebrovascular accident 288234081 Z86.73 aspirin 81 mg oral tablet daily. Nicotine dependence 5629 4008 F17.200 11/02: smoking cessation approach, patch offered and refused.Ni cotine 21 mg Q 24 hrssmoking cessation Chronic ne uropathic pain 240765963 M79.2 gabapentin 400 mg TID Anemia 880942328 D64.9 ferrous sulfate 325 mg daily.Mult ivitamin 1 tab daily. Chronic anxiety 46810851 9 F4.1 : She is followed by [...] at bedtime for anxietypsy ch eval Cough 27910117 R05.9 controlled stable, able to sleep at night.repo rt chronic cough that keeping her up at night+ smokercont inue benzonatat e 200 mg at HS. [id number] APOLINAR HAWLEY [facility] on [address] [place] [address] 11/09/2022 07:14:30 11/17/2022 10:53:16 Type 2 diabetes mellitus 33009579 E11.9 FS monitored for 6 days ranged from 87-110Metf ormin 500 mg BIDSSC discontinu ed in hosp d/t hypoglycem iamonitor BGLmonitor for s/sx of hypo/hyper glycemia Hyperlipidemia 03499493 E78.49 rosuvastat in 40 mg dailymonit or labs History of cerebrovascular accident 149378933 Z86.73 aspirin 81 mg oral tablet daily. Nicotine dependence 5629 4008 F17.200 smoking cessation approach, patch offered and refused.Ni cotine 21 mg Q 24 hrssmoking cessation Chronic ne uropathic pain 771873212 M79.2 gabapentin 400 mg TID Anemia 577055957 D64.9 ferrous sulfate 325 mg daily.Mult ivitamin 1 tab daily. Chronic anxiety 67276465 9 F4.1 She is followed by and [...] at bedtime for anxietypsy ch eval Cough 87749543 R05.9 controlled stable, able to sleep at night.repo rt chronic cough that keeping her up at night+ smokercont inue benzonatat e 200 mg at HS. [id number] iMriam Mcneill MD [facility] on [address] [place] [phone] 11/11/2022 06:22:50 11/17/2022 11:42:26 Chronic obstructive pulmonary disease 20618130 J41.0 albuterol HFA: 2 puffs q6h prnDuoneb updrafts q6h prnSpiriva 18 mcg: one inhalation dailyDuler a 100-5: 2 puffs bidwill monitor Type 2 padilla betes mellitus 17772387 E11.9 metformin 500 mg bid will monitor Mixed anxi ety and depressive disorder 524184033 F41.8 clonidine 0.1 mg tidclonaze asha 0.5 mg tidfluoxet ine 80 mg dailygabap entin 400 mg tidquetiap ine 100 mg at hswill monitor Chronic pain 18880084 G8 9.29 amitriptyl ine 50 mg dailyLidoc lupillo patch to back dailyibupr ofen 600 mg q6h prnAPAP 975 mg q6h prnwill monitor Essential hypertension 40971990 I10 clonidine 0.1 mg tid will monitor Opioid dependence 704149 00 F11.20 methadone 155 mg dailyfu methadone clinicwill monitor Gastroesop hageal reflux disease without esophagitis 336312978 K21.9 sucralfate 1 gm tidwill monitor History of cerebrovascular accident 896258663 Z86.73 rosuvastat in 40 mg daily ASA 81 mg daily will monitor [id number] APOLINAR HAWLEY [facility] on [address] [place] [address] 11/15/2022 08:51:56 11/17/2022 12:19:10 Type 2 diabetes mellitus 19368186 E11.9 stableMetf ormin 500 mg BIDSSC discontinu ed in hosp d/t hypoglycem iamonitor BGLmonitor for s/sx of hypo/hyper glycemia Hyperlipidemia 74785573 E78.49 rosuvastat in 40 mg dailymonit or labs History of cerebrovascular accident 715368981 Z86.73 aspirin 81 mg oral tablet daily. Nicotine dependence 5629 4008 F17.200 smoking cessation approach, patch offered and refused.Ni cotine 21 mg Q 24 hrs1010: smoking cessation encouraged , she os c/o possible pna but continues to smoke. Chronic ne uropathic pain 554569679 M79.2 gabapentin 400 mg TID Anemia 391368313 D64.9 ferrous sulfate 325 mg daily.Mult ivitamin 1 tab daily. Chronic anxiety 59248020 9 F41.1 amitriptyl ine 50 mg dailyclona zepam 0.5 mg oral tablet TIDClonidi ne 0.1 mg oral tablet daily.Fluo xetine 80 mg daily.sero quel Give 100 mg by mouth at bedtime for anxietypsy ch eval Moderate c hronic obstructive pulmonary disease 528904800 J41.0 11/15: increasing SOB with congestion cough- [...] n 2-3 liter prn Pain in palate 118656831 K13.79 reports soreness on soft palate from denturesma ll red area noted; not ulceratedi nstructed to rinse with warm salt water TID prnwill order oragel gel tid prn [id number] APOLINAR HAWLEY [facility] on [address] [place] [address] 11/21/2022 11:11:49 11/23/2022 12:19:18 Pneumonia 064361960 J18.9 11/21: resolving, breathingh as improved, reports [...] patch offered, she will think about it. [id number] APOLINAR HAWLEY [facility] on [address] [place] [phone] 3 11/25/2022 07:37:22 11/29/2022 11:38:02 Moderate chronic obstructive pulmonary disease 310233717 J41.0 11/25: chronic non productive cough with [...] dailyoxyge n 2-3 liter prn Chronic cough 00587032 R 05.3 due to smoking.sm oking cession - refused nicotine patchbenzo natate 200 mg TID [id number] APOLINAR HAWLEY [facility] on [address] [place] [phone] 3 12/01/2022 08:15:02 12/08/2022 15:59:24 Moderate chronic obstructive pulmonary disease 345312678 J41.0 12/01: Breathing is easy and unlaboreds he tells me that cough has improved but continues. i know it because i keep smoking . continue:e ncouraged to use prn inhaler when feeling SOB.Albute rol 2 puff(s) Inhalation 4 times a day as needed for wheezing.A lbuterol/I pratropium QID prnDulera 100 mcg-5 mcg/inh inhalation BIDSpiriva 18 mcg dailyoxyge n 2-3 liter prn Chronic cough 42529370 R 05.3 12/01: She reports cough continues but has improved.C ontinues to smiokes, she tells me she is going to try hard to stop.ada pan cessation, nicotine patch offered and refused again. [id number] APOLINAR HAWLEY [facility] on [address] [place] [address] 12/07/2022 07:02:14 12/09/2022 08:48:45 Moderate chronic obstructive pulmonary disease 829882482 J41.0 12/07: see hpiBreathi ng is easy [...] dailyoxyge n 2-3 liter prn Chronic cough 47353036 R 05.3 12/07: today she reports worsening cough with sob and expectoran t. Continues to smokes, she tells me she is going to try hard to stop.smoki ng cessation, nicotine patch offered and refused again.ches t xray ordered.co ntinue benzonatat e Chronic depression 24072 0009 F34.1 12/07: reports that her mood is stable/imp roving, she believes therapy is helping her to deal with recent family trauma.ami triptyline 50 mg dailyclona zepam 0.5 mg oral tablet TIDClonidi ne 0.1 mg oral tablet daily.Fluo xetine 80 mg daily.sero quel Give 100 mg by mouth at bedtime for anxietypsy ch eval Chronic anxiety 06678138 9 F41.1 see above [id number] Carlita Tamayo [facility] on [address] [place] [address] 12/16/2022 10:33:05 01/06/2023 15:48:45 Moderate chronic obstructive pulmonary disease 773273221 J41.0 see hpiBreathi ng is easy and [...] dailyoxyge n 2-3 liter prn Chronic cough 75191030 R 05.3 today she reports worsening cough with sob and expectoran t. not new, dry cough Continues to smokes, she tells me she is going to try hard to stop.smoki ng cessation, nicotine patch offered and refused again.ches t xray ordered.co ntinue benzonatat e Chronic depression 87971 0009 F34.1 reports that her mood is stable/imp roving, she believes therapy is helping her to deal with recent family trauma.ami triptyline 50 mg dailyclona zepam 0.5 mg oral tablet TIDClonidi ne 0.1 mg oral tablet daily.Fluo xetine 80 mg daily.sero quel Give 100 mg by mouth at bedtime for anxietypsy ch eval Chronic anxiety 42896064 9 F41.1 see above [id number] Carlita Tamayo [facility] on [address] [place] [phone] 3 12/23/2022 09:27:09 12/27/2022 11:03:50 Moderate chronic obstructive pulmonary disease 614252080 J41.0 usual SOB on O2 via NC [...] dailyoxyge n 2-3 liter prn Chronic cough 76179090 R 05.3 Continues to smokes, she tells me she is going to try hard to stop.smoki ng cessation, nicotine patch offered and refused again.cont inue benzonatat e Chronic depression 94048 0009 F34.1 reports that her mood is stable/imp roving, she believes therapy is helping her to deal with recent family trauma.ami triptyline 50 mg dailyclona zepam 0.5 mg oral tablet TIDClonidi ne 0.1 mg oral tablet daily.Fluo xetine 80 mg daily.sero quel Give 100 mg by mouth at bedtime for anxietypsy ch eval Chronic anxiety 14835604 9 F41.1 see above Edema of l ower extremity 752765982 R60.0 RLE worsening with painbedsid e ultrasound ordered. [id number] APOLINAR HAWLEY [facility] on [address] [place] [address] 3 12/30/2022 10:29:10 01/11/2023 12:20:38 Moderate chronic obstructive pulmonary disease 932817428 J41.0 At baseline status with usual shortness of breath, continues to smokes despite ongoing skoking cessation discussion s. continue:e ncouraged to use prn inhaler when feeling SOB.Albute rol 2 puff(s) Inhalation 4 times a day as needed for wheezing.A lbuterol/I pratropium QID prnDulera 100 mcg-5 mcg/inh inhalation BIDSpiriva 18 mcg dailyoxyge n 2-3 liter prn Chronic cough 46918279 R 05.3 Continues to smokes,con tinue benazonate 100 mg as ordered.sm oking cessation, nicotine patch offered and refused again. [id number] APOLINAR HAWLEY [facility] on [address] [place] [phone] 3 01/09/2023 12:47:53 01/12/2023 15:48:25 Dyspnea 677622558 R06.00 see hpicontinu e with O2 as neededLS decreased, breathing mildly labored, able to speak in sentences. rapid covid swab negativesw ab for influenza , RSVmonitor VS Qshiftcont inue support care -[facility] [place] prn, tylenol, encouraged fluidsches t xraygive now dose of prednisone 40 mg and then scheduled for 4 more days.start Azithromyc in zpak for 5 days .CBC/diff- BMP [id number] APOLINAR HAWLEY [facility] on [address] [place] [address] 3 02/07/2023 08:25:30 02/24/2023 10:28:22 Pain of shoulder region 20256223 M25.519 see hpiabducti on and adduction without painreport s pain with forward and backward flexionthe re is no swelling noted to extremity+ CMS noted 4: xray ordered by senior analytic consultant provider, not yet completed. [id number] Martin Yusuf MD [facility] on [address] [place] [id number] 3 02/15/2023 12:47:51 02/22/2023 17:49:01 Hematoma 353057100 M79.81 appears to be hematoma secondary to strainmoni tor site and need for ULexam reassuring watchful waitingof note on ASA 81 mg qd [id number] Miriam Mcneill MD [facility] on [address] [place] [id number] 3 02/17/2023 06:25:22 02/22/2023 18:03:49 Chronic obstructive pulmonary disease 65947891 J41.0 albuterol HFA: 2 puffs q6h prnDuoneb updrafts q6h prnSpiriva 18 mcg: one inhalation dailyDuler a 100-5: 2 puffs bidwill monitor Type 2 padilla betes mellitus 95795874 E11.9 metformin 500 mg bid will monitor Mixed anxi ety and depressive disorder 673722395 F41.8 clonidine 0.1 mg tidclonaze asha 0.5 mg tidfluoxet ine 80 mg dailygabap entin 400 mg tidquetiap ine 100 mg at hsamitript yline 50 mg dailywill monitor Essential hypertension 96414067 I10 clonidine 0.1 mg tidfurosem danielle 10 mg dailywill monitor Gastroesop hageal reflux disease without esophagitis 874658458 K21.9 sucralfate 1 gm tidwill monitor History of cerebrovascular accident 853227027 Z86.73 rosuvastat in 40 mg daily ASA 81 mg daily will monitor [id number] BEAN DAO NP [facility] on [address] [place] [address] 03/06/2023 09:59:22 03/08/2023 16:42:38 Chronic obstructive pulmonary disease 74111869 J41.0 albuterol HFA: 2 puffs q6h prnDuoneb updrafts q6h prnSpiriva 18 mcg: one inhalation dailyDuler a 100-5: 2 puffs bidwill monitor Type 2 padilla betes mellitus 23473033 E11.9 metformin 500 mg bid will monitor Mixed anxi ety and depressive disorder 969790794 F41.8 clonidine 0.1 mg tidclonaze asha 0.5 mg tidfluoxet ine 80 mg dailygabap entin 400 mg tidquetiap ine 100 mg at hsamitript yline 50 mg dailywill monitor Essential hypertension 70073646 I10 clonidine 0.1 mg tidfurosem danielle 10 mg dailywill monitor Gastroesop hageal reflux disease without esophagitis 788813563 K21.9 sucralfate 1 gm tidwill monitor History of cerebrovascular accident 573256498 Z86.73 rosuvastat in 40 mg daily ASA 81 mg daily will monitor Pain of sh oulder region 47147009 M25.519 see hpiabducti on and adduction without painreport s pain with forward and backward flexionthe re is no swelling noted to extremity+ CMS noted 4: xray ordered by senior analytic consultant provider, not yet completed. Health Concerns Section [...] Sinclair Member ID Guarantor Name 06/03/2020 1 [facility] (MEDICAID HMO) [id number] Josephine Mack [id number] Josephine Mack 02/07/2023 1 [place] [facility] Josephine A Mack [id number] Josephine Mack 06/03/2020 1 [facility] (MEDICAID HMO) [id number] Josephine Mack [id number] Josephine Mack 01/10/2023 1 [facility] PLAN (MEDICAID HMO) [id number] Josephine Mack [id number] Josephine Mack Notes Date Note Type [...] anemia, chronic active smoker. [facility] [address], [address], [place], [address], [employer] 01/09/2023 17:22:14 02/07/2023 text/html ROS as noted [...] anemia, chronic active smoker. [facility]IN[facility] HAWLEY [address], [address], [place], [address], [employer] 02/07/2023 14:48:28 02/15/2023 text/html Patient is a 63 yo female resident seen for acute rounding. Patient was lowering the window in her room 2 days prior felt a strain now with bruise and tenderness mid right bicep Martin Yusuf MD [address], [address], [place], [address], [facility] [employer] 02/15/2023 12:51:55 02/17/2023 text/html This 63 year old female subacute rehab patient is seen today for routine rounding visit. Medical history is remarkable for history of CVA with residual left sided weakness, COPD on home oxygen prn, DM, PTSD, opioid use disorder in remission on maintenance agonist therapy, migraine, GERD Patient was admitted to [facility] on 08/29/22 after hospital stay for [...] DNH - signed 08/29/22 Miriam Mcneill MD [address] [place] [address], [address], [place], [address], [facility] [employer] [facility] 02/17/2023 13:00:59 03/06/2023 text/html ROS as noted in the HPI seen today for discharge summary-63 year old female subacute rehab patient.Patient was admitted to [facility] on 08/29/22 after hospital stay for [...] report no concerns BEAN DAO NP [address] [place], [address], [facility] - [employer] [facility] 03/06/2023 10:09:54 OBGyn Episode No OBEpisode recorded.
== END 2024-12-06 11:22 | disposition home or self-care (01) ==
LOC: HO.HGI 10:16
PROVIDERS: PCP Internal Medicine; Visit Provider Nurse Practitioner
DX: K21.9 Gastro-esophageal reflux disease without esophagitis (principal); J44.9 Chronic obstructive pulmonary disease, unspecified; Z87.891 Personal history of nicotine dependence; Z86.19 Personal history of other infectious and parasitic diseases; Z87.11 Personal history of peptic ulcer disease
CPT/HCPCS: 99203

== ENCOUNTER → 2024-12-06 10:15 | Outpatient (BNVA) | payer MEDICAID, SELFPAY | PROVIDERS: PCP Internal Medicine; Visit Provider Nurse Practitioner | DX: Z01.818 Encounter for other preprocedural examination (principal); K59.04 Chronic idiopathic constipation; R13.11 Dysphagia, oral phase; J44.9 Chronic obstructive pulmonary disease, unspecified; Z99.81 Dependence on supplemental oxygen; Z86.73 Personal history of transient ischemic attack (TIA), and cerebral infarction without residual deficits; Z86.19 Personal history of other infectious and parasitic diseases; Z87.11 Personal history of peptic ulcer disease; Z79.899 Other long term (current) drug therapy | CPT/HCPCS: 99212 ==

== ENCOUNTER 2024-12-10 12:55 | Outpatient (AMB) | payer MEDICAID, SELFPAY ==
--- NOTE | 2024-12-10 12:57 | MHC.OFFVIS ---
Vital Signs 12/10/24 13:03 Height 5 ft 7 in Weight 230 lb BMI 36.0 Intake Visit Reasons: PO LT CTR 11/25/24 AR Intake Note: Josephine is a 64 year old right hand dominant female who presents today for a Post-Operative Visit status post Left Carpal Tunnel Release performed by Dr. Zelaya on 11/25/24. At today's visit she states no numbness or tingling to report. Allergies No Known Allergies (No Known Allergies*) Allergy (Verified 12/06/24 10:34) HPI HPI PO LT CTR 11/25/24 AR: Details: Josephine is a 64 year old right hand dominant female who presents today for a Post-Operative Visit status post Left Carpal Tunnel Release performed by Dr. Zelaya on 11/25/24. At today's visit she states no numbness or tingling to report. Denies any significant pain in the left wrist. Overall, the patient states that she is very pleased with her outcome. No other acute complaints or concerns at this time. Patient does state that she is interested in right-sided surgery. [facility] Medical History ELSA (obstructive sleep apnea) Lower extremity edema Hypertension Hyperlipidemia Neuropathy GERD (gastroesophageal reflux disease) NIDDY (non-insulin dependent diabetes mellitus in young) CVA (cerebral vascular accident) Anxiety Depression Obesity Surgical History History of carpal tunnel surgery of left wrist H/O endoscopy History of hip replacement Hx of cholecystectomy Hx of appendectomy Hx of splenectomy Family History Mother Heart problem Father Family history unknown Daughter No problems noted. Daughter No problems noted. Son No problems noted. Son No problems noted. Brother Colon cancer Brother Colon cancer Social History Alcohol intake: former Patient Tobacco Use Status: Former Tobacco user Tobacco use type: Cigarette Current occupational status: employed and disabled Current occupation: rt handed Review of Systems Const All systems reviewed & are unremarkable except as noted in HPI and below Physical Exam Vital Signs: BMI result Body Mass Index 36.0 Extrem Other: Neuro: Normal sensation of the tips of all digits of bilateral hands in the office today No thenar or intrinsic wasting. Good APB muscle firing and good finger cross. Vascular: Capillary refill brisk. ROM: Patient can make a fist and extend all their digits fully and without difficulty Skin: Well approximated and well healing incision site noted on the volar left wrist No lacerations or abrasions noted. General: No ecchymosis. No erythema or evidence of infection. Assessment & Plan Assessment & Plan (1) Bilateral carpal tunnel syndrome: Code(s): G56.03 - Carpal tunnel syndrome, bilateral upper limbs Category: Medical Plan 1. Carpal tunnel syndrome, left Status post left carpal tunnel release DOS 11/25/2024 With good symptom resolution postoperatively Patient appears to be recovering well postoperatively Patient is educated about the typical recovery course No under water times one-week, 2 lb weight limit x2 weeks Patient appears to be recovering very well, and requires no further acute follow-up with us postoperatively Patient is educated and worrisome signs and symptoms, and should call us if they experience any of these, including but not limited to redness, swelling, increased pain, and discharge Patient understands this and is amenable to this plan 2. Carpal tunnel syndrome, right Symptoms intermittent, daily, worse at night I educated the patient about the condition. I discussed both operative and nonoperative treatment options. The patient would like to proceed with surgery. The risks and benefits of operative treatment were discussed with the patient and the patient wishes to proceed with surgery. These risks include, but are not limited to, risk of damage to blood vessels, nerves, tendons, infection, recurrence, incomplete relief of preoperative symptoms, persistent pain, possible need for further surgery, and the risks associated with regional blocks and/or anesthesia. Plan is to take the patient to the operating room at some point in the next few weeks for the following procedures: 1. Right carpal tunnel release under local anesthesia All of the preoperative paperwork including the consent was discussed today. All of the patient's questions were answered in the clinic today. The patient understands that they will be in contact with our surgical assistant certified to discuss scheduling their procedure. Patient denies diabetes, blood thinners, or current smoking. Coding Level of Care Code Est Pt Level 4 (49308) Diagnoses Bilateral carpal tunnel syndrome G56.03
[2024-12-10 13:03] VITALS: BMI 36.0
--- OUTSIDE RECORDS SUMMARY | 2024-12-10 15:31 | XMS_ITS | Clinical Summary ---
Author Organization [facility] Address [address] [place] [address] Phone Care Team Providers Care Police Investigator Name Role Phone Rhonda Johnson MD Primary Care Provider [phone] Allergies No known active allergies Encounters Date Type Department Care Team Description 09/27/2024 1:41 PM EDT - 09/27/2024 11:59 PM EDT Hospital Encounter [facility] at [address] [address] Encounter for other screening for [...] (2 - Risk 2-dose series) 11/21/2007 09/26/2007 RSV Immunization Adult Patients (1 - Risk 50-74 years 1-dose series) 02/11/2012 Zoster Vaccines (1 of 2) 02/11/2012 Hepatitis B Vaccines (2 of 3 - Risk 3-dose series) 01/05/2015 12/08/2014 Pneumococcal Vaccine: 50+ Years (3 of 3 - PCV) 01/18/2019 01/18/2018, 02/25/2015, 09/26/2007, Additional history exists Cholesterol Screening (Lipid Panel) 09/05/2023 HIV Screening [...] year. Mammography location: [facility] at [address], [address] -------- FINAL REPORT -------- Dictated By: Caleb Jackson Dictated Date: 09/30/2024 07:21 ET Assigned Physician: Caleb Jackson Reviewed and Electronically Signed By: Caleb Jackson Signed Date: 09/30/2024 07:27 ET Workstation ID: [id number] Transcribed By: Self Edit Transcribed Date: 09/30/2024 07:21 ET Narrative 09/30/2024 7:27 AM EDT EXAM: SCREENING MAMMOGRAPHY, BILATERAL HISTORY: SCREENING. No additional history. COMPARISON: 06/22/23, 05/12/16 TECHNIQUE: Synthesized CC and MLO projections of each breast. Tomosynthesis of each breast in the CC and MLO projections. ADDITIONAL IMAGING: None Computer-aided detection was employed with the iCAD Navdy AI 3-D. TISSUE DENSITY: There are scattered [...] year. Mammography location: [facility] at [address], [address] -------- FINAL REPORT -------- Dictated By: Caleb Jackson Dictated Date: 09/30/2024 07:21 ET Assigned Physician: Caleb Jackson Reviewed and Electronically Signed By: Caleb Jackson Signed Date: 09/30/2024 07:27 ET Workstation ID: [id number] Transcribed By: Self Edit Transcribed Date: 09/30/2024 [...] ID:Not on file Type:Not on file Address: [facility] ATTN:CLAIMS [address] [place], [place] Subscriber Plan / Payer ( fective 2024-Present) Name:JOSEPHINE ASH Relation to Subscriber:Self Name:Josephine Ash Payer ID:[id number] Group ID:Not on file Type:Not on file Address: [facility] ATTN:[employer] [address] [place], [place] Care Teams Police Investigator Relationship Specialty Start Date End Date Rhonda Johnson MD [address] [place] [address] [place] [address] PCP - General Internal Medicine 09/10/24
--- OUTSIDE RECORDS SUMMARY | 2024-12-10 15:31 | XMS_ITS | Data Portability ---
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 [address] 09/21/2022 12:37:30 09/28/2022 20:10:15 Migraine 39126359 G43.909 09/21 stable.Hx of migraine, went to [facility] [place] with headache.T x with migraine cocktail including Tylenol, Toradol, Compazine and Benadryl along with IV fluids which significan tly improved her symptoms but presents with recurrence .already on amitriptyl ine at home Acute on c hronic hypoxemic respiratory failure [id number] J96.21 09/21: no resp distress reported.H ypoxia 70% on room on presentati on.COPD exacerbati onChest x-ray with no acute diseaseTx prednisone 40 mg daily for 4 days-compl etedContin ue oxygen supplement ation as neededWill need home oxygen evaluation prior to discharge Moderate c hronic obstructive pulmonary disease 933944492 J41.0 09/21: encouraged to use prn inhaler when feeling SOB.Albute rol 2 puff(s) Inhalation 4 times a day as needed for wheezing.A lbuterol/I pratropium QID prnDulera 100 mcg-5 mcg/inh inhalation BIDSpiriva 18 mcg dailyoxyge n 2-3 liter prn 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 Hyperlipidemia 23070660 E78.49 rosuvastat in 40 mg dailymonit or labs Gastroesop hageal reflux disease without esophagitis 277157983 K21.9 Sucralfate Oral Tablet 1 GM History of cerebrovascular accident 646890486 Z86.73 aspirin 81 mg oral tablet daily. Nicotine dependence 5629 4008 F17.200 09/21: continues to smoke; smoking cessation encouraged , patch offered and refused.St ates she quit smoking recently.N icotine 21 mg Q 24 hrssmoking cessation Chronic ne uropathic pain 426886507 M79.2 gabapentin 400 mg TID. Anemia 208976517 D64.9 ferrous sulfate 325 mg daily.Mult ivitamin 1 tab daily. Chronic anxiety 05055002 9 F41.1 Continue:a mitriptyli ne 50 mg dailyclona zepam 0.5 mg oral tablet daily-incr eased to BID for increasing anxietyClo nidine 0.1 mg oral tablet daily.Fluo xetine 80 mg daily.sero quel Give 100 mg by mouth at bedtime for anxietypsy ch eval Difficulty passing urine 908785622 R39.198 09/13: voiding without difficulty .09/06: no sx reported today.sx for 2 daysThere is no dysuria, frequency or urgency.mo nitor input/outp ut/ bladder scan prnsend urine w/reflux Cough 78155938 R05.9 report chronic cough that keeping her up at night+ smokerwill add benzonatat e 200 mg at HS.smoking cessation discussed. [id number] APOLINAR HAWLEY [facility] on [address] [place] [phone] 09/23/2022 16:18:54 09/28/2022 20:30:11 Nausea 744364117 R11.0 hx of gerdshe reports that she [...] eval. Gastroesop hageal reflux disease without esophagitis 808227287 K21.9 reports nausea for 2 weeksSucra lfate Oral Tablet 1 GMprometha zine 6.25 mg prn ordered. [id number] APOLINAR HAW[facility] on [address] [place] [phone] 3 09/28/2022 08:55:47 10/05/2022 15:32:02 Nausea 466010182 R11.0 hx of gerdshe reports that she [...] delivered. Gastroesop hageal reflux disease without esophagitis 699642145 K21.9 reports nausea for 2 weeks- continuesS ucralfate Oral Tablet 1 GMprometha zine 6.25 mg prn ordered/ erxtened as she never received. [id number] APOLINAR HAW[facility] on [address] [place] [address] 10/04/2022 09:56:29 10/11/2022 15:59:38 Nausea 121438151 R11.0 10/04: has improved with promethazi ne.hx [...] delivered. Gastroesop hageal reflux disease without esophagitis 626489488 K21.9 Sucralfate Oral Tablet 1 GMprometha zine 6.25 mg prn ordered/ extened as she never received. Migraine 45049519 G43.90 9 Hx of migraine, went to [facility] [place] with headache.T x with migraine cocktail including Tylenol, Toradol, Compazine and Benadryl along with IV fluids which significan tly improved her symptoms but presents with recurrence .already on amitriptyl ine at home Acute on c hronic hypoxemic respiratory failure [id number] J96.21 10/04: on exam today she is lying in bed off O2, there is no resp issues. breathing easy and unlabored. 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 Hyperlipidemia 37344129 E78.49 rosuvastat in 40 mg dailymonit or labs History of cerebrovascular accident 343565954 Z86.73 aspirin 81 mg oral tablet daily. Nicotine dependence 5629 4008 F17.200 09/21: continues to smoke; smoking cessation encouraged , patch offered and refused.St ates she quit smoking recently.N icotine 21 mg Q 24 hrssmoking cessation Chronic ne uropathic pain 965599986 M79.2 gabapentin 400 mg TID. Anemia 878547559 D64.9 ferrous sulfate 325 mg daily.Mult ivitamin 1 tab daily. Chronic anxiety 67394713 9 F41.1 Continue:a mitriptyli ne 50 mg dailyclona zepam 0.5 mg oral tablet daily-incr eased to BID for increasing anxietyClo nidine 0.1 mg oral tablet daily.Fluo xetine 80 mg daily.sero quel Give 100 mg by mouth at bedtime for anxietypsy ch eval Difficulty passing urine 528454646 R39.198 09/13: voiding without difficulty .09/06: no sx reported today.sx for 2 daysThere is no dysuria, frequency or urgency.mo nitor input/outp ut/ bladder scan prnsend urine w/reflux Cough 75760382 R05.9 report chronic cough that keeping her up at night+ smokerwill add benzonatat e 200 mg at HS.smoking cessation discussed. [id number] [facility]AR HAW[facility] on [address] [place] [address] 10/14/2022 08:23:26 10/19/2022 15:57:23 Fall W19.XXXA reports fall this morningnow with right elbow and left knee painright lateral arm elbow with swelling and slight redness with raised bump.xray of right upper extremity/ elbowtylen ol 975 mg and ibuprofen 600 mg now dose ordered. [id number] [facility]AR HAW[facility] on [address] [place] [id number] 10/19/2022 13:31:55 10/25/2022 14:41:17 Type 2 diabetes mellitus 31365863 E11.9 Metformin 500 mg BIDSSC discontinu ed in hosp d/t hypoglycem iamonitor BGLmonitot for s/sx of hypo/hyper glycemia Hyperlipidemia 74132854 E78.49 rosuvastat in 40 mg dailymonit or labs History of cerebrovascular accident 825343836 Z86.73 aspirin 81 mg oral tablet daily. Nicotine dependence 5629 4008 F17.200 09/21: continues to smoke; smoking cessation encouraged , patch offered and refused.St ates she quit smoking recently.N icotine 21 mg Q 24 hrssmoking cessation Chronic ne uropathic pain 733208949 M79.2 gabapentin 400 mg TID. Anemia 408255219 D64.9 ferrous sulfate 325 mg daily.Mult ivitamin 1 tab daily. Chronic anxiety 55753668 9 F41.1 Continue:a mitriptyli ne 50 mg dailyclona zepam 0.5 mg oral tablet daily-incr eased to BID for increasing anxietyClo nidine 0.1 mg oral tablet daily.Fluo xetine 80 mg daily.sero quel Give 100 mg by mouth at bedtime for anxietypsy ch eval Difficulty passing urine 235221331 R39.198 09/13: voiding without difficulty .09/06: no sx reported today.sx for 2 daysThere is no dysuria, frequency or urgency.mo nitor input/outp ut/ bladder scan prnsend urine w/reflux Cough 20067138 R05.9 report chronic cough that keeping her up at night+ smokerwill add benzonatat e 200 mg at HS.smoking cessation discussed. [id number] AP[facility]INAR HAW[facility] on [address] [place] [phone] 10/27/2022 09:47:17 11/08/2022 13:08:50 Type 2 diabetes mellitus 16036831 E11.9 new ord to check FS to update to PCCMetform in 500 mg BIDSSC discontinu ed in hosp d/t hypoglycem iamonitor BGLmonitor for s/sx of hypo/hyper glycemia Hyperlipidemia 33132351 E78.49 rosuvastat in 40 mg dailymonit or labs History of cerebrovascular accident 232458208 Z86.73 aspirin 81 mg oral tablet daily. Nicotine dependence 5629 4008 F17.200 09/21: continues to smoke; smoking cessation encouraged , patch offered and refused.St ates she quit smoking recently.N icotine 21 mg Q 24 hrssmoking cessation Chronic ne uropathic pain 284720090 M79.2 gabapentin 400 mg TID. Anemia 844045811 D64.9 ferrous sulfate 325 mg daily.Mult ivitamin 1 tab daily. Chronic anxiety 63804316 9 F41.1 Continue:a mitriptyli ne 50 mg dailyclona zepam 0.5 mg oral tablet daily-incr eased to BID for increasing anxietyClo nidine 0.1 mg oral tablet daily.Fluo xetine 80 mg daily.sero quel Give 100 mg by mouth at bedtime for anxietypsy ch eval Cough 76294574 R05.9 stable, able to sleep at night.repo rt chronic cough that keeping her up at night+ smokerwill add benzonatat e 200 mg at HS.smoking cessation discussed. [id number] AP[facility]AR HAW[facility] on [address] [place] [address] 11/02/2022 07:09:07 11/09/2022 11:07:43 Type 2 diabetes mellitus 20121425 E11.9 FS monitored for 6 days ranged from 87-110Metf ormin 500 mg BIDSSC discontinu ed in hosp d/t hypoglycem iamonitor BGLmonitor for s/sx of hypo/hyper glycemia Hyperlipidemia 10216973 E78.49 rosuvastat in 40 mg dailymonit or labs History of cerebrovascular accident 655038704 Z86.73 aspirin 81 mg oral tablet daily. Nicotine dependence 5629 4008 F17.200 11/02: smoking cessation approach, patch offered and refused.Ni cotine 21 mg Q 24 hrssmoking cessation Chronic ne uropathic pain 078069786 M79.2 gabapentin 400 mg TID Anemia 872799926 D64.9 ferrous sulfate 325 mg daily.Mult ivitamin 1 tab daily. Chronic anxiety 49075794 9 F4.1 : She is followed by [...] at bedtime for anxietypsy ch eval Cough 96146462 R05.9 controlled stable, able to sleep at night.repo rt chronic cough that keeping her up at night+ smokercont inue benzonatat e 200 mg at HS. [id number] AP[facility]INAR HAWLEY [facility] on [address] [place] [address] 11/09/2022 07:14:30 11/17/2022 10:53:16 Type 2 diabetes mellitus 52521296 E11.9 FS monitored for 6 days ranged from 87-110Metf ormin 500 mg BIDSSC discontinu ed in hosp d/t hypoglycem iamonitor BGLmonitor for s/sx of hypo/hyper glycemia Hyperlipidemia 52128421 E78.49 rosuvastat in 40 mg dailymonit or labs History of cerebrovascular accident 595455818 Z86.73 aspirin 81 mg oral tablet daily. Nicotine dependence 5629 4008 F17.200 smoking cessation approach, patch offered and refused.Ni cotine 21 mg Q 24 hrssmoking cessation Chronic ne uropathic pain 300147070 M79.2 gabapentin 400 mg TID Anemia 835250221 D64.9 ferrous sulfate 325 mg daily.Mult ivitamin 1 tab daily. Chronic anxiety 29313391 9 F4.1 She is followed by and [...] at bedtime for anxietypsy ch eval Cough 88362627 R05.9 controlled stable, able to sleep at night.repo rt chronic cough that keeping her up at night+ smokercont inue benzonatat e 200 mg at HS. [id number] Miriam Mcneill MD [facility] on [address] [place] [phone] 11/11/2022 06:22:50 11/17/2022 11:42:26 Chronic obstructive pulmonary disease 24392972 J41.0 albuterol HFA: 2 puffs q6h prnDuoneb updrafts q6h prnSpiriva 18 mcg: one inhalation dailyDuler a 100-5: 2 puffs bidwill monitor Type 2 padilla betes mellitus 87627012 E11.9 metformin 500 mg bid will monitor Mixed anxi ety and depressive disorder 824158219 F41.8 clonidine 0.1 mg tidclonaze asha 0.5 mg tidfluoxet ine 80 mg dailygabap entin 400 mg tidquetiap ine 100 mg at hswill monitor Chronic pain 06639632 G8 9.29 amitriptyl ine 50 mg dailyLidoc lupillo patch to back dailyibupr ofen 600 mg q6h prnAPAP 975 mg q6h prnwill monitor Essential hypertension 64544609 I10 clonidine 0.1 mg tid will monitor Opioid dependence 364243 00 F11.20 methadone 155 mg dailyfu methadone clinicwill monitor Gastroesop hageal reflux disease without esophagitis 662868616 K21.9 sucralfate 1 gm tidwill monitor History of cerebrovascular accident 043337528 Z86.73 rosuvastat in 40 mg daily ASA 81 mg daily will monitor [id number] AP[facility]AR HAW[facility] on [address] [place] [phone] 11/15/2022 08:51:56 11/17/2022 12:19:10 Type 2 diabetes mellitus 61368191 E11.9 stableMetf ormin 500 mg BIDSSC discontinu ed in hosp d/t hypoglycem iamonitor BGLmonitor for s/sx of hypo/hyper glycemia Hyperlipidemia 96759690 E78.49 rosuvastat in 40 mg dailymonit or labs History of cerebrovascular accident 533566008 Z86.73 aspirin 81 mg oral tablet daily. Nicotine dependence 5629 4008 F17.200 smoking cessation approach, patch offered and refused.Ni cotine 21 mg Q 24 hrs1010: smoking cessation encouraged , she os c/o possible pna but continues to smoke. Chronic ne uropathic pain 108401644 M79.2 gabapentin 400 mg TID Anemia 305082357 D64.9 ferrous sulfate 325 mg daily.Mult ivitamin 1 tab daily. Chronic anxiety 42372347 9 F41.1 amitriptyl ine 50 mg dailyclona zepam 0.5 mg oral tablet TIDClonidi ne 0.1 mg oral tablet daily.Fluo xetine 80 mg daily.sero quel Give 100 mg by mouth at bedtime for anxietypsy ch eval Moderate c hronic obstructive pulmonary disease 389042639 J41.0 11/15: increasing SOB with congestion cough- [...] n 2-3 liter prn Pain in palate 614787637 K13.79 reports soreness on soft palate from denturesma ll red area noted; not ulceratedi nstructed to rinse with warm salt water TID prnwill order oragel gel tid prn [id number] [facility]INAR HAW[facility] on [address] [place] [address] 11/21/2022 11:11:49 11/23/2022 12:19:18 Pneumonia 548641980 J18.9 11/21: resolving, breathingh as improved, reports [...] patch offered, she will think about it. [id number] APOLINAR HAWLEY [facility] on [address] [place] [address] 11/25/2022 07:37:22 11/29/2022 11:38:02 Moderate chronic obstructive pulmonary disease 749683806 J41.0 11/25: chronic non productive cough with [...] dailyoxyge n 2-3 liter prn Chronic cough 99032627 R 05.3 due to smoking.sm oking cession - refused nicotine patchbenzo natate 200 mg TID [id number] AP[facility]INAR HAW[facility] on [address] [place] [phone] 3 12/01/2022 08:15:02 12/08/2022 15:59:24 Moderate chronic obstructive pulmonary disease 478921545 J41.0 12/01: Breathing is easy and unlaboreds he tells me that cough has improved but continues. i know it because i keep smoking . continue:e ncouraged to use prn inhaler when feeling SOB.Albute rol 2 puff(s) Inhalation 4 times a day as needed for wheezing.A lbuterol/I pratropium QID prnDulera 100 mcg-5 mcg/inh inhalation BIDSpiriva 18 mcg dailyoxyge n 2-3 liter prn Chronic cough 92409129 R 05.3 12/01: She reports cough continues but has improved.C ontinues to smiokes, she tells me she is going to try hard to stop.ada pan cessation, nicotine patch offered and refused again. [id number] AP[facility]INAR HAWLEY [facility] on [address] [place] [address] 12/07/2022 07:02:14 12/09/2022 08:48:45 Moderate chronic obstructive pulmonary disease 553402896 J41.0 12/07: see hpiBreathi ng is easy [...] dailyoxyge n 2-3 liter prn Chronic cough 11697477 R 05.3 12/07: today she reports worsening cough with sob and expectoran t. Continues to smokes, she tells me she is going to try hard to stop.smoki ng cessation, nicotine patch offered and refused again.ches t xray ordered.co ntinue benzonatat e Chronic depression 59624 0009 F34.1 12/07: reports that her mood is stable/imp roving, she believes therapy is helping her to deal with recent family trauma.ami triptyline 50 mg dailyclona zepam 0.5 mg oral tablet TIDClonidi ne 0.1 mg oral tablet daily.Fluo xetine 80 mg daily.sero quel Give 100 mg by mouth at bedtime for anxietypsy ch eval Chronic anxiety 75571806 9 F41.1 see above [id number] Carlita Tamayo [facility] on [address] [place] [phone] 12/16/2022 10:33:05 01/06/2023 15:48:45 Moderate chronic obstructive pulmonary disease 988161664 J41.0 see hpiBreathi ng is easy and [...] dailyoxyge n 2-3 liter prn Chronic cough 40477670 R 05.3 today she reports worsening cough with sob and expectoran t. not new, dry cough Continues to smokes, she tells me she is going to try hard to stop.smoki ng cessation, nicotine patch offered and refused again.ches t xray ordered.co ntinue benzonatat e Chronic depression 09486 0009 F34.1 reports that her mood is stable/imp roving, she believes therapy is helping her to deal with recent family trauma.ami triptyline 50 mg dailyclona zepam 0.5 mg oral tablet TIDClonidi ne 0.1 mg oral tablet daily.Fluo xetine 80 mg daily.sero quel Give 100 mg by mouth at bedtime for anxietypsy ch eval Chronic anxiety 59407304 9 F41.1 see above [id number] Carlita Tamayo [facility] on [address] [place] [phone] 12/23/2022 09:27:09 12/27/2022 11:03:50 Moderate chronic obstructive pulmonary disease 623331669 J41.0 usual SOB on O2 via NC [...] dailyoxyge n 2-3 liter prn Chronic cough 37380746 R 05.3 Continues to smokes, she tells me she is going to try hard to stop.smoki ng cessation, nicotine patch offered and refused again.cont inue benzonatat e Chronic depression 39748 0009 F34.1 reports that her mood is stable/imp roving, she believes therapy is helping her to deal with recent family trauma.ami triptyline 50 mg dailyclona zepam 0.5 mg oral tablet TIDClonidi ne 0.1 mg oral tablet daily.Fluo xetine 80 mg daily.sero quel Give 100 mg by mouth at bedtime for anxietypsy ch eval Chronic anxiety 31465185 9 F41.1 see above Edema of l ower extremity 211372188 R60.0 RLE worsening with painbedsid e ultrasound ordered. [id number] AP[facility]INAR HAW[facility] on [address] [place] [phone] 3 12/30/2022 10:29:10 01/11/2023 12:20:38 Moderate chronic obstructive pulmonary disease 722866241 J41.0 At baseline status with usual shortness of breath, continues to smokes despite ongoing skoking cessation discussion s. continue:e ncouraged to use prn inhaler when feeling SOB.Albute rol 2 puff(s) Inhalation 4 times a day as needed for wheezing.A lbuterol/I pratropium QID prnDulera 100 mcg-5 mcg/inh inhalation BIDSpiriva 18 mcg dailyoxyge n 2-3 liter prn Chronic cough 39896636 R 05.3 Continues to smokes,con tinue benazonate 100 mg as ordered.sm oking cessation, nicotine patch offered and refused again. [id number] AP[facility]INAR HAW[facility] on [address] [place] [phone] 3 01/09/2023 12:47:53 01/12/2023 15:48:25 Dyspnea 532415753 R06.00 see hpicontinu e with O2 as neededLS decreased, breathing mildly labored, able to speak in sentences. rapid covid swab negativesw ab for influenza , RSVmonitor VS Qshiftcont inue support care -[facility] [place] prn, tylenol, encouraged fluidsches t xraygive now dose of prednisone 40 mg and then scheduled for 4 more days.start Azithromyc in zpak for 5 days .CBC/diff- BMP [id number] AP[facility]INAR HAW[facility] on [address] [place] [phone] 3 02/07/2023 08:25:30 02/24/2023 10:28:22 Pain of shoulder region 75851083 M25.519 see hpiabducti on and adduction without painreport s pain with forward and backward flexionthe re is no swelling noted to extremity+ CMS noted 4: xray ordered by application infrastructure engineer provider, not yet completed. [id number] Martin Yusuf MD [facility] on [address] [place] [phone] 02/15/2023 12:47:51 02/22/2023 17:49:01 Hematoma 286833251 M79.81 appears to be hematoma secondary to strainmoni tor site and need for ULexam reassuring watchful waitingof note on ASA 81 mg qd [id number] Miriam Mcneill MD [facility] on [address] [place] [phone] 3 02/17/2023 06:25:22 02/22/2023 18:03:49 Chronic obstructive pulmonary disease 76795710 J41.0 albuterol HFA: 2 puffs q6h prnDuoneb updrafts q6h prnSpiriva 18 mcg: one inhalation dailyDuler a 100-5: 2 puffs bidwill monitor Type 2 padilla betes mellitus 24688613 E11.9 metformin 500 mg bid will monitor Mixed anxi ety and depressive disorder 104320241 F41.8 clonidine 0.1 mg tidclonaze asha 0.5 mg tidfluoxet ine 80 mg dailygabap entin 400 mg tidquetiap ine 100 mg at hsamitript yline 50 mg dailywill monitor Essential hypertension 60078050 I10 clonidine 0.1 mg tidfurosem danielle 10 mg dailywill monitor Gastroesop hageal reflux disease without esophagitis 520627466 K21.9 sucralfate 1 gm tidwill monitor History of cerebrovascular accident 757786058 Z86.73 rosuvastat in 40 mg daily ASA 81 mg daily will monitor [id number] BEAN DAO NP [facility] on [address] [place] [address] 03/06/2023 09:59:22 03/08/2023 16:42:38 Chronic obstructive pulmonary disease 84019912 J41.0 albuterol HFA: 2 puffs q6h prnDuoneb updrafts q6h prnSpiriva 18 mcg: one inhalation dailyDuler a 100-5: 2 puffs bidwill monitor Type 2 padilla betes mellitus 00480523 E11.9 metformin 500 mg bid will monitor Mixed anxi ety and depressive disorder 729996825 F41.8 clonidine 0.1 mg tidclonaze asha 0.5 mg tidfluoxet ine 80 mg dailygabap entin 400 mg tidquetiap ine 100 mg at hsamitript yline 50 mg dailywill monitor Essential hypertension 82423453 I10 clonidine 0.1 mg tidfurosem danielle 10 mg dailywill monitor Gastroesop hageal reflux disease without esophagitis 573846886 K21.9 sucralfate 1 gm tidwill monitor History of cerebrovascular accident 320804171 Z86.73 rosuvastat in 40 mg daily ASA 81 mg daily will monitor Pain of sh oulder region 33576267 M25.519 see hpiabducti on and adduction without painreport s pain with forward and backward flexionthe re is no swelling noted to extremity+ CMS noted 4: xray ordered by application infrastructure engineer provider, not yet completed. Health Concerns Section [...] Sinclair Member ID Guarantor Name 06/03/2020 1 [facility] ON LICENSE OF [facility] (MEDICAID HMO) [id number] Josephine Mack [id number] Josephine Mack 02/07/2023 1 [place]: [facility] Josephine A Mack [id number] Josephine Mack 06/03/2020 1 [facility] [facility] (MEDICAID HMO) [id number] Josephine Mack [id number] Josephine Mack 01/10/[address] [facility] PLAN (MEDICAID HMO) [id number] Josephine Mack [id number] Josephine Mack Notes Date Note Type [...] anemia, chronic active smoker. APOLINAR HAWLEY [address] [facility], [address], [place], [address], [employer] 01/09/2023 17:22:14 02/07/2023 text/html ROS as noted [...] anemia, chronic active smoker. APOLINAR HAWLEY [address] [facility], [address], [place], [address], [employer] 02/07/2023 14:48:28 02/15/2023 text/html Patient is a 63 yo female resident seen for acute rounding. Patient was lowering the window in her room 2 days prior felt a strain now with bruise and tenderness mid right bicep Martin Yusuf MD [address] [facility], [address], [place], [address], [facility] [employer] 02/15/2023 12:51:55 02/17/2023 text/html This 63 year old female subacute rehab patient is seen today for routine rounding visit. Medical history is remarkable for history of CVA with residual left sided weakness, COPD on home oxygen prn, DM, PTSD, opioid use disorder in remission on maintenance agonist therapy, migraine, GERD Patient was admitted to [facility] on 08/29/22 after hospital stay for fall [...] DNH - signed 08/29/22 Miriam Mcneill MD [address] [place] [address], [address], [place], [address], [facility] [employer] 02/17/2023 13:00:59 03/06/2023 text/html ROS as noted in the HPI seen today for discharge summary-63 year old female subacute rehab patient.Patient was admitted to [facility] on 08/29/22 after hospital stay for fall [...] report no concerns BEAN DAO NP [address] [facility], [address], [place], [address], [facility] - [employer] [facility] 03/06/2023 10:09:54 OBGyn Episode No OBEpisode recorded.
== END 2024-12-10 14:48 | disposition home or self-care (01) ==
LOC: HO.HOS 12:56
PROVIDERS: PCP Internal Medicine
DX: G56.03 Carpal tunnel syndrome, bilateral upper limbs (principal)
CPT/HCPCS: 99024; 99214

== ENCOUNTER → 2024-12-10 12:55 | Outpatient (BNVA) | payer MEDICAID, SELFPAY | PROVIDERS: PCP Internal Medicine | DX: G56.03 Carpal tunnel syndrome, bilateral upper limbs (principal) | CPT/HCPCS: 99212 ==

== ENCOUNTER 2024-12-23 10:27 | Outpatient (AMB) | payer MEDICAID, SELFPAY ==
--- NOTE | 2024-12-23 10:32 | MHC.OFFVIS ---
Vital Signs 12/23/24 10:33 Height 5 ft 7 in Weight 234 lb BMI 36.6 BP 98/60 Blood Pressure Location Lt brachial Position Sitting Pulse 64 Pulse Source Pulse Oximeter Pulse Oximetry (%) 96 Oxygen Delivery Method Nasal Cannula Oxygen Flow Rate 4 Intake Visit Reasons: copd Allergies No Known Allergies (No Known Allergies*) Allergy (Verified 12/06/24 10:34) HPI HPI copd: Details: 64-year-old lady, former 60+ pack-year smoker, quit 2020 now followed for supplemental oxygen dependent COPD, pulmonary aspiration, and orthopnea. Patient had MBS that showed pulmonary aspiration and she is working with speech therapy on diet modification and swallowing techniques. Her 2D echocardiogram is essentially normal. Lung cancer screening CT chest is essentially normal. Patient is using albuterol MDI and Anoro with reasonable baseline control of her underlying COPD. Her sleep study is essentially normal. Patient does have underlying history of asplenia. She continues on IVIG therapy with significantly decreased frequency of pulmonary infections. She continues on diuretic regimen with good control of her orthopnea and lower extremity edema. She denies recent exacerbations. She is planned for an EGD. [facility] Medical History ELSA (obstructive sleep apnea) Lower extremity edema Hypertension Hyperlipidemia Neuropathy GERD (gastroesophageal reflux disease) NIDDY (non-insulin dependent diabetes mellitus in young) CVA (cerebral vascular accident) Anxiety Depression Obesity Surgical History History of carpal tunnel surgery of left wrist H/O endoscopy History of hip replacement Hx of cholecystectomy Hx of appendectomy Hx of splenectomy Family History Mother Heart problem Father Family history unknown Daughter No problems noted. Daughter No problems noted. Son No problems noted. Son No problems noted. Brother Colon cancer Brother Colon cancer Social History Alcohol intake: former Patient Tobacco Use Status: Former Tobacco user Tobacco use type: Cigarette Current occupational status: employed and disabled Current occupation: rt handed Review of Systems Const Denies daytime sleepiness, Denies excessive sweating, Denies fatigue, Denies fever(s), Denies lethargy, Denies malaise, Denies night sweats, Denies snoring and Denies weight loss Eyes Denies blurry vision and Denies itchy eyes ENT Denies nasal congestion, Denies post nasal drip, Denies sinus pain, Denies sinus pressure and Denies other ( Thrush) Card Denies chest pain, Denies pedal edema, Denies dyspnea, Denies orthopnea and Denies paroxysmal nocturnal dyspnea Resp Denies cough, Denies hemoptysis, Denies excessive phlegm production, Denies dyspnea, Denies snoring and Denies wheezing GI Denies abdominal pain and Denies heartburn Musc Denies myalgias, Denies arthralgias and Denies joint swelling Skin/Breast Denies rash Neuro Denies memory loss and Denies seizure-like activity Psych Denies abnormal sleep pattern, Denies anxiety and Denies memory loss Endo Denies excessive sweating, Denies fatigue and Denies heat intolerance Shaq/Lymph Denies easy bruising Aller/Immun Denies itchy eyes, Denies seasonal rhinorrhea and Denies wheezing Physical Exam Vital Signs: Last Vital Signs Pulse 64 12/23/24 10:33 BP 98/60 12/23/24 10:33 Pulse Ox 96 12/23/24 10:33 Oxygen Delivery Method Nasal Cannula 12/23/24 10:33 Oxygen Flow Rate 4 12/23/24 10:33 BMI result Body Mass Index 36.6 Const General: no acute distress and alert Nutritional Appearance: obese Orientation/consciousness: Other orientation findings ( oriented) HEENT Head: Yes atraumatic Eyes Sclerae: sclerae normal Neck Neck: Yes supple Lymphatic: no lymphadenopathy noted Resp Effort & Inspection: normal respiratory effort and no use of accessory muscles Auscultation: clear to auscultation bilaterally Cardio Rate: regular rate Rhythm: regular rhythm Heart sounds: no gallops, no murmurs and no rubs Skin General skin exam: other ( warm) Extrem General: No clubbing, No cyanosis and No edema Assessment & Plan Assessment & Plan (1) COPD (chronic obstructive pulmonary disease): Code(s): J44.9 - Chronic obstructive pulmonary disease, unspecified Category: Medical Plan: Well controlled on current regimen of Anoro and duo nebs. Continue current regimen. (2) Supplemental oxygen dependent: Code(s): Z99.81 - Dependence on supplemental oxygen Category: Medical Plan: Continue supplemental oxygen to maintain O2 saturation of 88-93%. (3) Pulmonary aspiration: Code(s): T17.900A - Unspecified foreign body in respiratory tract, part unspecified causing asphyxiation, initial encounter Category: Medical Plan: Secondary to prior CVA, now controlled with diet modification. (4) Lower extremity edema: Code(s): R60.0 - Localized edema Category: Medical Plan: Well controlled on current diuretic regimen of Lasix 40 mg daily. Continue current regimen. (5) Personal history of nicotine dependence: Code(s): Z87.891 - Personal history of nicotine dependence Category: Medical Plan: Results of lung cancer screening CT chest from July of 2024 reviewed, no worrisome pulmonary nodules. Continue with yearly screening, next in July of 2025. 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 Continue current regimen. (7) Encounter for preoperative pulmonary examination: Code(s): Z01.811 - Encounter for preprocedural respiratory examination Category: Medical Plan: At this time patient is at low risk for pulmonary perioperative complications for the proposed endoscopy either under general anesthesia, or monitored anesthesia care. Coding Level of Care Code Est Pt Level 5 (44824) Complex EM visit Add On G2211 Diagnoses COPD (chronic obstructive pulmonary disease) J44.9 Supplemental oxygen dependent Z99.81 Pulmonary aspiration T17.900A Lower extremity edema R60.0 Personal history of nicotine dependence Z87.891 IgM deficiency D80.4 Encounter for preoperative pulmonary examination Z01.811
[2024-12-23 10:33] VITALS: BP 98/60; PULSE 64; O2SAT 96; BMI 36.6
== END 2024-12-23 10:48 | disposition home or self-care (01) ==
LOC: HO.HPS 10:27
PROVIDERS: PCP Internal Medicine; Visit Provider Internal Medicine Pulmonary Disease
DX: J44.9 Chronic obstructive pulmonary disease, unspecified (principal); Z99.81 Dependence on supplemental oxygen; T17.900A Unspecified foreign body in respiratory tract, part unspecified causing asphyxiation, initial encounter; R60.0 Localized edema; Z87.891 Personal history of nicotine dependence; D80.4 Selective deficiency of immunoglobulin M [IgM]; Z01.811 Encounter for preprocedural respiratory examination
CPT/HCPCS: 99214

== ENCOUNTER 2024-12-23 10:27 | Outpatient (REF) | payer MEDICAID, SELFPAY ==
--- OUTSIDE RECORDS SUMMARY | 2024-12-23 22:20 | XMS_ITS | Data Portability ---
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 urine w/reflux Cough 41399253 R05.9 report chronic cough that keeping her up at night+ smokerwill add benzonatat e 200 mg at HS.smoking cessation discussed. [id number] DAQUAN SAINI, APOLINAR [facility] on [address] [place] [address] 09/21/2022 12:37:30 09/28/2022 20:10:15 Migraine 87752747 G43.909 09/21 stable.Hx of migraine, went to [facility] with headache.T x with migraine cocktail including Tylenol, Toradol, Compazine and Benadryl along with IV fluids which significan tly improved her symptoms but presents with recurrence .already on amitriptyl ine at home Acute on c hronic hypoxemic respiratory failure [id number] J96.21 09/21: no resp distress reported.H ypoxia 70% on room on presentati on.COPD exacerbati onChest x-ray with no acute diseaseTx prednisone 40 mg daily for 4 days-compl etedContin ue oxygen supplement ation as neededWill need home oxygen evaluation prior to discharge Moderate c hronic obstructive pulmonary disease 882514143 J41.0 09/21: encouraged to use prn inhaler when feeling SOB.Albute rol 2 puff(s) Inhalation 4 times a day as needed for wheezing.A lbuterol/I pratropium QID prnDulera 100 mcg-5 mcg/inh inhalation BIDSpiriva 18 mcg dailyoxyge n 2-3 liter prn 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 Hyperlipidemia 46563242 E78.49 rosuvastat in 40 mg dailymonit or labs Gastroesop hageal reflux disease without esophagitis 276754401 K21.9 Sucralfate Oral Tablet 1 GM History of cerebrovascular accident 565096170 Z86.73 aspirin 81 mg oral tablet daily. Nicotine dependence 5629 4008 F17.200 09/21: continues to smoke; smoking cessation encouraged , patch offered and refused.St ates she quit smoking recently.N icotine 21 mg Q 24 hrssmoking cessation Chronic ne uropathic pain 607523422 M79.2 gabapentin 400 mg TID. Anemia 680573056 D64.9 ferrous sulfate 325 mg daily.Mult ivitamin 1 tab daily. Chronic anxiety 28105334 9 F41.1 Continue:a mitriptyli ne 50 mg dailyclona zepam 0.5 mg oral tablet daily-incr eased to BID for increasing anxietyClo nidine 0.1 mg oral tablet daily.Fluo xetine 80 mg daily.sero quel Give 100 mg by mouth at bedtime for anxietypsy ch eval Difficulty passing urine 401715653 R39.198 09/13: voiding without difficulty .09/06: no sx reported today.sx for 2 daysThere is no dysuria, frequency or urgency.mo nitor input/outp ut/ bladder scan prnsend urine w/reflux Cough 21562163 R05.9 report chronic cough that keeping her up at night+ smokerwill add benzonatat e 200 mg at HS.smoking cessation discussed. [id number] APOLINAR HAWLEY [facility] on [address] [place] [address] 09/23/2022 16:18:54 09/28/2022 20:30:11 Nausea 571584791 R11.0 hx of gerdshe reports that she [...] eval. Gastroesop hageal reflux disease without esophagitis 145825841 K21.9 reports nausea for 2 weeksSucra lfate Oral Tablet 1 GMprometha zine 6.25 mg prn ordered. [id number] APOLINAR HAWLEY [facility] on [address] [place] [phone] 09/28/2022 08:55:47 10/05/2022 15:32:02 Nausea 018623350 R11.0 hx of gerdshe reports that she [...] delivered. Gastroesop hageal reflux disease without esophagitis 199107301 K21.9 reports nausea for 2 weeks- continuesS ucralfate Oral Tablet 1 GMprometha zine 6.25 mg prn ordered/ erxtened as she never received. [id number] APOLINAR HAWLEY [facility] on [address] [place] [address] 10/04/2022 09:56:29 10/11/2022 15:59:38 Nausea 024417957 R11.0 10/04: has improved with promethazi ne.hx [...] delivered. Gastroesop hageal reflux disease without esophagitis 508494614 K21.9 Sucralfate Oral Tablet 1 GMprometha zine 6.25 mg prn ordered/ extened as she never received. Migraine 35817447 G43.90 9 Hx of migraine, went to [facility] with headache.T x with migraine cocktail including Tylenol, Toradol, Compazine and Benadryl along with IV fluids which significan tly improved her symptoms but presents with recurrence .already on amitriptyl ine at home Acute on c hronic hypoxemic respiratory failure [id number] 0539047 J96.21 10/04: on exam today she is lying in bed off O2, there is no resp issues. breathing easy and unlabored. 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 Hyperlipidemia 52544658 E78.49 rosuvastat in 40 mg dailymonit or labs History of cerebrovascular accident 705364016 Z86.73 aspirin 81 mg oral tablet daily. Nicotine dependence 5629 4008 F17.200 09/21: continues to smoke; smoking cessation encouraged , patch offered and refused.St ates she quit smoking recently.N icotine 21 mg Q 24 hrssmoking cessation Chronic ne uropathic pain 713897637 M79.2 gabapentin 400 mg TID. Anemia 973454114 D64.9 ferrous sulfate 325 mg daily.Mult ivitamin 1 tab daily. Chronic anxiety 15985087 9 F41.1 Continue:a mitriptyli ne 50 mg dailyclona zepam 0.5 mg oral tablet daily-incr eased to BID for increasing anxietyClo nidine 0.1 mg oral tablet daily.Fluo xetine 80 mg daily.sero quel Give 100 mg by mouth at bedtime for anxietypsy ch eval Difficulty passing urine 254973006 R39.198 09/13: voiding without difficulty .09/06: no sx reported today.sx for 2 daysThere is no dysuria, frequency or urgency.mo nitor input/outp ut/ bladder scan prnsend urine w/reflux Cough 25171823 R05.9 report chronic cough that keeping her up at night+ smokerwill add benzonatat e 200 mg at HS.smoking cessation discussed. [id number] APOLINAR HAWLEY [facility] on [address] [place] [address] 10/14/2022 08:23:26 10/19/2022 15:57:23 Fall W19.XXXA reports fall this morningnow with right elbow and left knee painright lateral arm elbow with swelling and slight redness with raised bump.xray of right upper extremity/ elbowtylen ol 975 mg and ibuprofen 600 mg now dose ordered. [id number] APOLINAR HAWLEY [facility] on [address] [place] [phone] 10/19/2022 13:31:55 10/25/2022 14:41:17 Type 2 diabetes mellitus 80151372 E11.9 Metformin 500 mg BIDSSC discontinu ed in hosp d/t hypoglycem iamonitor BGLmonitot for s/sx of hypo/hyper glycemia Hyperlipidemia 26705617 E78.49 rosuvastat in 40 mg dailymonit or labs History of cerebrovascular accident 982465604 Z86.73 aspirin 81 mg oral tablet daily. Nicotine dependence 5629 4008 F17.200 09/21: continues to smoke; smoking cessation encouraged , patch offered and refused.St ates she quit smoking recently.N icotine 21 mg Q 24 hrssmoking cessation Chronic ne uropathic pain 480946329 M79.2 gabapentin 400 mg TID. Anemia 837352996 D64.9 ferrous sulfate 325 mg daily.Mult ivitamin 1 tab daily. Chronic anxiety 94994702 9 F41.1 Continue:a mitriptyli ne 50 mg dailyclona zepam 0.5 mg oral tablet daily-incr eased to BID for increasing anxietyClo nidine 0.1 mg oral tablet daily.Fluo xetine 80 mg daily.sero quel Give 100 mg by mouth at bedtime for anxietypsy ch eval Difficulty passing urine 583621168 R39.198 09/13: voiding without difficulty .09/06: no sx reported today.sx for 2 daysThere is no dysuria, frequency or urgency.mo nitor input/outp ut/ bladder scan prnsend urine w/reflux Cough 21713387 R05.9 report chronic cough that keeping her up at night+ smokerwill add benzonatat e 200 mg at HS.smoking cessation discussed. [id number] APOLINAR HAWLEY [facility] on [address] [place] [phone] 10/27/2022 09:47:17 11/08/2022 13:08:50 Type 2 diabetes mellitus 42803480 E11.9 new ord to check FS to update to PCCMetform in 500 mg BIDSSC discontinu ed in hosp d/t hypoglycem iamonitor BGLmonitor for s/sx of hypo/hyper glycemia Hyperlipidemia 49222012 E78.49 rosuvastat in 40 mg dailymonit or labs History of cerebrovascular accident 751901518 Z86.73 aspirin 81 mg oral tablet daily. Nicotine dependence 5629 4008 F17.200 09/21: continues to smoke; smoking cessation encouraged , patch offered and refused.St ates she quit smoking recently.N icotine 21 mg Q 24 hrssmoking cessation Chronic ne uropathic pain 495712265 M79.2 gabapentin 400 mg TID. Anemia 236073069 D64.9 ferrous sulfate 325 mg daily.Mult ivitamin 1 tab daily. Chronic anxiety 73325958 9 F41.1 Continue:a mitriptyli ne 50 mg dailyclona zepam 0.5 mg oral tablet daily-incr eased to BID for increasing anxietyClo nidine 0.1 mg oral tablet daily.Fluo xetine 80 mg daily.sero quel Give 100 mg by mouth at bedtime for anxietypsy ch eval Cough 70107329 R05.9 stable, able to sleep at night.repo rt chronic cough that keeping her up at night+ smokerwill add benzonatat e 200 mg at HS.smoking cessation discussed. [id number] APOLINAR HAWLEY [facility] on [address] [place] [address] 11/02/2022 07:09:07 11/09/2022 11:07:43 Type 2 diabetes mellitus 47754719 E11.9 FS monitored for 6 days ranged from 87-110Metf ormin 500 mg BIDSSC discontinu ed in hosp d/t hypoglycem iamonitor BGLmonitor for s/sx of hypo/hyper glycemia Hyperlipidemia 04347364 E78.49 rosuvastat in 40 mg dailymonit or labs History of cerebrovascular accident 867126366 Z86.73 aspirin 81 mg oral tablet daily. Nicotine dependence 5629 4008 F17.200 11/02: smoking cessation approach, patch offered and refused.Ni cotine 21 mg Q 24 hrssmoking cessation Chronic ne uropathic pain 880502363 M79.2 gabapentin 400 mg TID Anemia 272764173 D64.9 ferrous sulfate 325 mg daily.Mult ivitamin 1 tab daily. Chronic anxiety 53477122 9 F4.1 : She is followed by [...] at bedtime for anxietypsy ch eval Cough 36699407 R05.9 controlled stable, able to sleep at night.repo rt chronic cough that keeping her up at night+ smokercont inue benzonatat e 200 mg at HS. [id number] APOILNAR HAWLEY [facility] on [address] [place] [address] 11/09/2022 07:14:30 11/17/2022 10:53:16 Type 2 diabetes mellitus 42217702 E11.9 FS monitored for 6 days ranged from 87-110Metf ormin 500 mg BIDSSC discontinu ed in hosp d/t hypoglycem iamonitor BGLmonitor for s/sx of hypo/hyper glycemia Hyperlipidemia 28167123 E78.49 rosuvastat in 40 mg dailymonit or labs History of cerebrovascular accident 169300440 Z86.73 aspirin 81 mg oral tablet daily. Nicotine dependence 5629 4008 F17.200 smoking cessation approach, patch offered and refused.Ni cotine 21 mg Q 24 hrssmoking cessation Chronic ne uropathic pain 987637071 M79.2 gabapentin 400 mg TID Anemia 837446405 D64.9 ferrous sulfate 325 mg daily.Mult ivitamin 1 tab daily. Chronic anxiety 10071668 9 F4.1 She is followed by and [...] at bedtime for anxietypsy ch eval Cough 05345783 R05.9 controlled stable, able to sleep at night.repo rt chronic cough that keeping her up at night+ smokercont inue benzonatat e 200 mg at HS. [id number] Miriam Mcneill MD [facility] on [address] [place] [phone] 11/11/2022 06:22:50 11/17/2022 11:42:26 Chronic obstructive pulmonary disease 64410908 J41.0 albuterol HFA: 2 puffs q6h prnDuoneb updrafts q6h prnSpiriva 18 mcg: one inhalation dailyDuler a 100-5: 2 puffs bidwill monitor Type 2 padilla betes mellitus 72786451 E11.9 metformin 500 mg bid will monitor Mixed anxi ety and depressive disorder 809271217 F41.8 clonidine 0.1 mg tidclonaze asha 0.5 mg tidfluoxet ine 80 mg dailygabap entin 400 mg tidquetiap ine 100 mg at hswill monitor Chronic pain 79446259 G8 9.29 amitriptyl ine 50 mg dailyLidoc lupillo patch to back dailyibupr ofen 600 mg q6h prnAPAP 975 mg q6h prnwill monitor Essential hypertension 49643428 I10 clonidine 0.1 mg tid will monitor Opioid dependence 002080 00 F11.20 methadone 155 mg dailyfu methadone clinicwill monitor Gastroesop hageal reflux disease without esophagitis 370599375 K21.9 sucralfate 1 gm tidwill monitor History of cerebrovascular accident 988130706 Z86.73 rosuvastat in 40 mg daily ASA 81 mg daily will monitor [id number] APOLINAR HAWLEY [facility] on [address] [place] [phone] 3 11/15/2022 08:51:56 11/17/2022 12:19:10 Type 2 diabetes mellitus 99622610 E11.9 stableMetf ormin 500 mg BIDSSC discontinu ed in hosp d/t hypoglycem iamonitor BGLmonitor for s/sx of hypo/hyper glycemia Hyperlipidemia 07513802 E78.49 rosuvastat in 40 mg dailymonit or labs History of cerebrovascular accident 928202376 Z86.73 aspirin 81 mg oral tablet daily. Nicotine dependence 5629 4008 F17.200 smoking cessation approach, patch offered and refused.Ni cotine 21 mg Q 24 hrs1010: smoking cessation encouraged , she os c/o possible pna but continues to smoke. Chronic ne uropathic pain 809292631 M79.2 gabapentin 400 mg TID Anemia 821295552 D64.9 ferrous sulfate 325 mg daily.Mult ivitamin 1 tab daily. Chronic anxiety 12677338 9 F41.1 amitriptyl ine 50 mg dailyclona zepam 0.5 mg oral tablet TIDClonidi ne 0.1 mg oral tablet daily.Fluo xetine 80 mg daily.sero quel Give 100 mg by mouth at bedtime for anxietypsy ch eval Moderate c hronic obstructive pulmonary disease 180622172 J41.0 11/15: increasing SOB with congestion cough- [...] n 2-3 liter prn Pain in palate 844199700 K13.79 reports soreness on soft palate from denturesma ll red area noted; not ulceratedi nstructed to rinse with warm salt water TID prnwill order oragel gel tid prn [id number] APOLINAR HAWLEY [facility] on [address] [place] [address] 11/21/2022 11:11:49 11/23/2022 12:19:18 Pneumonia 709219061 J18.9 11/21: resolving, breathingh as improved, reports [...] patch offered, she will think about it. [id number] APOLINAR HAWLEY [facility] on [address] [place] [phone] 3 11/25/2022 07:37:22 11/29/2022 11:38:02 Moderate chronic obstructive pulmonary disease 252775435 J41.0 11/25: chronic non productive cough with [...] dailyoxyge n 2-3 liter prn Chronic cough 93949468 R 05.3 due to smoking.sm oking cession - refused nicotine patchbenzo natate 200 mg TID [id number] APOLINAR HAWLEY [facility] on [address] [place] [phone] 3 12/01/2022 08:15:02 12/08/2022 15:59:24 Moderate chronic obstructive pulmonary disease 688513894 J41.0 12/01: Breathing is easy and unlaboreds he tells me that cough has improved but continues. i know it because i keep smoking . continue:e ncouraged to use prn inhaler when feeling SOB.Albute rol 2 puff(s) Inhalation 4 times a day as needed for wheezing.A lbuterol/I pratropium QID prnDulera 100 mcg-5 mcg/inh inhalation BIDSpiriva 18 mcg dailyoxyge n 2-3 liter prn Chronic cough 32586145 R 05.3 12/01: She reports cough continues but has improved.C ontinues to smiokes, she tells me she is going to try hard to stop.ada pan cessation, nicotine patch offered and refused again. [id number] APOLINAR HAWLEY [facility] on [address] [place] [address] 12/07/2022 07:02:14 12/09/2022 08:48:45 Moderate chronic obstructive pulmonary disease 215314953 J41.0 12/07: see hpiBreathi ng is easy [...] dailyoxyge n 2-3 liter prn Chronic cough 67056791 R 05.3 12/07: today she reports worsening cough with sob and expectoran t. Continues to smokes, she tells me she is going to try hard to stop.smoki ng cessation, nicotine patch offered and refused again.ches t xray ordered.co ntinue benzonatat e Chronic depression 08057 0009 F34.1 12/07: reports that her mood is stable/imp roving, she believes therapy is helping her to deal with recent family trauma.ami triptyline 50 mg dailyclona zepam 0.5 mg oral tablet TIDClonidi ne 0.1 mg oral tablet daily.Fluo xetine 80 mg daily.sero quel Give 100 mg by mouth at bedtime for anxietypsy ch eval Chronic anxiety 87942174 9 F41.1 see above [id number] Carlita Tamayo [facility] on [address] [place] [phone] 12/16/2022 10:33:05 01/06/2023 15:48:45 Moderate chronic obstructive pulmonary disease 558318560 J41.0 see hpiBreathi ng is easy and [...] dailyoxyge n 2-3 liter prn Chronic cough 12795330 R 05.3 today she reports worsening cough with sob and expectoran t. not new, dry cough Continues to smokes, she tells me she is going to try hard to stop.smoki ng cessation, nicotine patch offered and refused again.ches t xray ordered.co ntinue benzonatat e Chronic depression 14941 0009 F34.1 reports that her mood is stable/imp roving, she believes therapy is helping her to deal with recent family trauma.ami triptyline 50 mg dailyclona zepam 0.5 mg oral tablet TIDClonidi ne 0.1 mg oral tablet daily.Fluo xetine 80 mg daily.sero quel Give 100 mg by mouth at bedtime for anxietypsy ch eval Chronic anxiety 45562405 9 F41.1 see above [id number] Carlita Tamayo [facility] on [address] [place] [phone] 3 12/23/2022 09:27:09 12/27/2022 11:03:50 Moderate chronic obstructive pulmonary disease 426545305 J41.0 usual SOB on O2 via NC [...] dailyoxyge n 2-3 liter prn Chronic cough 05679102 R 05.3 Continues to smokes, she tells me she is going to try hard to stop.smoki ng cessation, nicotine patch offered and refused again.cont inue benzonatat e Chronic depression 60858 0009 F34.1 reports that her mood is stable/imp roving, she believes therapy is helping her to deal with recent family trauma.ami triptyline 50 mg dailyclona zepam 0.5 mg oral tablet TIDClonidi ne 0.1 mg oral tablet daily.Fluo xetine 80 mg daily.sero quel Give 100 mg by mouth at bedtime for anxietypsy ch eval Chronic anxiety 70884116 9 F41.1 see above Edema of l ower extremity 279100852 R60.0 RLE worsening with painbedsid e ultrasound ordered. [id number] APOLINAR HAWLEY [facility] on [address] [place] [phone] 3 12/30/2022 10:29:10 01/11/2023 12:20:38 Moderate chronic obstructive pulmonary disease 013874518 J41.0 At baseline status with usual shortness of breath, continues to smokes despite ongoing skoking cessation discussion s. continue:e ncouraged to use prn inhaler when feeling SOB.Albute rol 2 puff(s) Inhalation 4 times a day as needed for wheezing.A lbuterol/I pratropium QID prnDulera 100 mcg-5 mcg/inh inhalation BIDSpiriva 18 mcg dailyoxyge n 2-3 liter prn Chronic cough 93636608 R 05.3 Continues to smokes,con tinue benazonate 100 mg as ordered.sm oking cessation, nicotine patch offered and refused again. [id number] APOLINAR HAWLEY [facility] on [address] [place] [phone] 3 01/09/2023 12:47:53 01/12/2023 15:48:25 Dyspnea 405816224 R06.00 see hpicontinu e with O2 as neededLS decreased, breathing mildly labored, able to speak in sentences. rapid covid swab negativesw ab for influenza , RSVmonitor VS Qshiftcont inue support care -[facility] [place] prn, tylenol, encouraged fluidsches t xraygive now dose of prednisone 40 mg and then scheduled for 4 more days.start Azithromyc in zpak for 5 days .CBC/diff- BMP [id number] APOLINAR HAWLEY [facility] on [address] [place] [phone] 3 02/07/2023 08:25:30 02/24/2023 10:28:22 Pain of shoulder region 85896377 M25.519 see hpiabducti on and adduction without painreport s pain with forward and backward flexionthe re is no swelling noted to extremity+ CMS noted 4: xray ordered by manager labor relations provider, not yet completed. [id number] Martin Yusuf MD [facility] on [address] [place] [id number] 3 02/15/2023 12:47:51 02/22/2023 17:49:01 Hematoma 293442432 M79.81 appears to be hematoma secondary to strainmoni tor site and need for ULexam reassuring watchful waitingof note on ASA 81 mg qd [id number] Miriam Mcneill MD [facility] on [address] [place] [phone] 3 02/17/2023 06:25:22 02/22/2023 18:03:49 Chronic obstructive pulmonary disease 02358395 J41.0 albuterol HFA: 2 puffs q6h prnDuoneb updrafts q6h prnSpiriva 18 mcg: one inhalation dailyDuler a 100-5: 2 puffs bidwill monitor Type 2 padilla betes mellitus 07006598 E11.9 metformin 500 mg bid will monitor Mixed anxi ety and depressive disorder 312642020 F41.8 clonidine 0.1 mg tidclonaze asha 0.5 mg tidfluoxet ine 80 mg dailygabap entin 400 mg tidquetiap ine 100 mg at hsamitript yline 50 mg dailywill monitor Essential hypertension 75153339 I10 clonidine 0.1 mg tidfurosem danielle 10 mg dailywill monitor Gastroesop hageal reflux disease without esophagitis 169432386 K21.9 sucralfate 1 gm tidwill monitor History of cerebrovascular accident 984802035 Z86.73 rosuvastat in 40 mg daily ASA 81 mg daily will monitor [id number] BEAN DAO NP [facility] on [address] [place] [address] 03/06/2023 09:59:22 03/08/2023 16:42:38 Chronic obstructive pulmonary disease 00921668 J41.0 albuterol HFA: 2 puffs q6h prnDuoneb updrafts q6h prnSpiriva 18 mcg: one inhalation dailyDuler a 100-5: 2 puffs bidwill monitor Type 2 padilla betes mellitus [id number] E11.9 metformin 500 mg bid will monitor Mixed anxi ety and depressive disorder [id number] F41.8 clonidine 0.1 mg tidclonaze asha 0.5 mg tidfluoxet ine 80 mg dailygabap entin 400 mg tidquetiap ine 100 mg at hsamitript yline 50 mg dailywill monitor Essential hypertension [id number] I10 clonidine 0.1 mg tidfurosem danielle 10 mg dailywill monitor Gastroesop hageal reflux disease without esophagitis [id number] K21.9 sucralfate 1 gm tidwill monitor History of cerebrovascular accident [id number] Z86.73 rosuvastat in 40 mg daily ASA 81 mg daily will monitor Pain of sh oulder region [id number] M25.519 see hpiabducti on and adduction without painreport s pain with forward and backward flexionthe re is no swelling noted to extremity+ CMS noted 4: xray ordered by manager labor relations provider, not yet completed. Health Concerns Section [...] Sinclair Member ID Guarantor Name 06/03/[address] [facility] (MEDICAID HMO) [id number] Josephine Mack [id number] Josephine Mack 02/07/2023 1 [place] [facility] Josephine A Mack [id number] Josephine Mack 06/03/2020 1 [facility] (MEDICAID HMO) [id number] Josephine Mack [id number] Josephine Mack 01/10/2023 1 [facility] PL[facility] (MEDICAID HMO) [id number] Josephine Mack [id number] Josephine Mack Notes Date Note Type [...] anemia, chronic active smoker. [facility] [address] [facility], [address], [place], [address], [email or web address] 01/09/2023 17:22:14 02/07/2023 text/html ROS as noted [...] anemia, chronic active smoker. APOLINAR HAWLEY [address] [facility], [address], [place], [address], [email or web address] 02/07/2023 14:48:28 02/15/2023 text/html Patient is a 63 yo female resident seen for acute rounding. Patient was lowering the window in her room 2 days prior felt a strain now with bruise and tenderness mid right bicep Martin Yusuf MD [address] [facility], [address], [place], [address], [facility] [employer] 02/15/2023 12:51:55 02/17/2023 text/html This 63 year old female subacute rehab patient is seen today for routine rounding visit. Medical history is remarkable for history of CVA with residual left sided weakness, COPD on home oxygen prn, DM, PTSD, opioid use disorder in remission on maintenance agonist therapy, migraine, GERD Patient was admitted to [facility] on 08/29/22 after hospital stay for [...] DNH - signed 08/29/22 Miriam Mcneill MD [address] [place] [address], [address], [place], [address], [facility] [employer] 02/17/2023 13:00:59 03/06/2023 text/html ROS as noted in the HPI seen today for discharge summary-63 year old female subacute rehab patient.Patient was admitted to [facility] on 08/29/22 after hospital stay for [...] report no concerns BEAN DAO NP [address] [facility], [place], [address], [facility] - [employer] [facility] 03/06/2023 10:09:54 OBGyn Episode No OBEpisode recorded.
[2024-12-26 18:44] LABS: HCV Log PCR <1.18 NOT DETECTED Log IU/mL (NOT DETECTED); HepC Viral Load <15 NOT DETECTED IU/mL (NOT DETECTED)
== END 2024-12-23 10:28 | disposition home or self-care (01) ==
LOC: HO.LAB 10:27
PROVIDERS: Absent Provider Nurse Practitioner; PCP Internal Medicine; Visit Provider Internal Medicine Pulmonary Disease
DX: J44.9 Chronic obstructive pulmonary disease, unspecified (principal); T17.900A Unspecified foreign body in respiratory tract, part unspecified causing asphyxiation, initial encounter; R60.0 Localized edema; D80.4 Selective deficiency of immunoglobulin M [IgM]; Z99.81 Dependence on supplemental oxygen; Z87.891 Personal history of nicotine dependence; Z01.811 Encounter for preprocedural respiratory examination
CPT/HCPCS: 36415; 87522; 99212

== ENCOUNTER 2024-12-30 11:32 | Day surgery (SDC) | payer MEDICAID, SELFPAY ==
--- OUTSIDE RECORDS SUMMARY | 2024-12-11 08:11 | XMS_ITS | Clinical Summary ---
Author Organization 175 [facility] Address [address] [place] [address] Phone Care Team Providers Care Award Clerk Name Role Phone Rhonda Johnson MD Primary Care Provider [phone] Allergies No known active allergies Encounters Date Type Department Care Team Description 09/27/2024 1:41 PM EDT - 09/27/2024 11:59 PM EDT Hospital Encounter [facility] at [address] [address] Encounter for other screening for [...] year. Mammography location: [facility] at [address], [address] -------- FINAL REPORT -------- Dictated By: Caleb Jackson Dictated Date: 09/30/2024 07:21 ET Assigned Physician: Caleb Jackson Reviewed and Electronically Signed By: Caleb Jackson Signed Date: 09/30/2024 07:27 ET Workstation ID: [id number] Transcribed By: Self Edit Transcribed Date: 09/30/2024 07:21 ET Narrative 09/30/2024 7:27 AM EDT EXAM: SCREENING MAMMOGRAPHY, BILATERAL HISTORY: SCREENING. No additional history. COMPARISON: 06/22/23, 05/12/16 TECHNIQUE: Synthesized CC and MLO projections of each breast. Tomosynthesis of each breast in the CC and MLO projections. 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 TISSUE DENSITY: There are scattered [...] year. Mammography location: [facility] at [address], [address] -------- FINAL REPORT -------- Dictated By: Caleb Jackson Dictated Date: 09/30/2024 07:21 ET Assigned Physician: Caleb Jackson Reviewed and Electronically Signed By: Caleb Jackson Signed Date: 09/30/2024 07:27 ET Workstation ID: [id number] Transcribed By: Self Edit Transcribed Date: 09/30/2024 [...] ID:Not on file Type:Not on file Address: [facility] ATTN:[employer] [address] [place], [place] Member Sub[place] Plan / Payer ( fective 2024-Present) Name:JOSEPHINE ASH Relation to Subscriber:Self Name:Josephine Ash Payer ID:[id number] Group ID:Not on file Type:Not on file Address: [facility] ATTN:[employer] [address] [place], [place] Care Teams Award Clerk Relationship Specialty Start Date End Date Rhonda Johnson MD [address] [place] [address] [place] [address] PCP - General Internal Medicine 09/10/24
--- NOTE | 2024-12-30 10:46 | MHC.SHP ---
Pre-Procedural Eval Section A - 24 Hr Update-Section A only Date of Service: 12/30/24 The patient is an INPATIENT: No Changes since office visit: No Cold of Flu in the past 2 weeks, No New Medical Problems, No Changes in Medication and No Patient answered all questions The patient has been examined within 24 hours of the surgical procedure. The History & Physical has been completed within 30 days and I have reviewed it.: Yes Section B - Complete if H&P > 30 days Chief Complaint: Carpal tunnel syndrome, right upper limb Allergies: Allergies Allergy/AdvReac Type Severity Reaction Status Date / Time No Known Allergies (No Known Allergy Verified 12/06/24 10:34 Allergies*) Plan Diagnosis/Plan: Unchanged I have reviewed the history and physical and performed a pertinent physical examination on my patient. No changes have occurred unless specified. Time Spent With Patient Time: Total time managing care of this patient today ____ minutes.
--- NOTE | 2024-12-30 10:47 | W.PM.OPN ---
Operative Note Operative Note Date of Service: 12/30/24 Narrative: Preop diagnosis: 1. Right Carpal tunnel syndrome Postop diagnosis: same Procedure: 1. Right Carpal tunnel release Surgeon: Yara Zelaya MD Dormitory Counselor: None Anesthesia: local block using 1% lidocaine with epinephrine Findings: Thickened transverse carpal ligament. The motor branch appeared to pass through the middle of the transverse carpal ligament, and also appeared to include a branch heading distally towards the index finger. These were also freed up from the transverse carpal ligament and protected during the case. EBL: Less than 5 mL Specimens: None Complications: None Disposition: Brought to recovery room in stable condition Plan: Follow-up for 10-14 days for wound check and suture removal Indications: The patient is 64 years old, with right carpal tunnel syndrome that has been unresponsive to nonoperative management. The risks and benefits of operative treatment including but not limited to risk of damage to blood vessels, nerves, tendons, infection, persistent pain, persistent symptoms, or possible need for additional surgery were discussed with the patient and the patient wishes to proceed with surgery. Procedure: Once consent was obtained a local block was performed using a combination of 1% lidocaine with epinephrine. The patient was then brought back to the operating suite and placed on the operative table in supine position. The right upper extremity was prepped and draped in a standard surgical fashion. Once assured that we had a good block, a 2.0 cm longitudinal incision was made centered over the carpal tunnel. The incision was made through the skin to the subcutaneous tissues using a #15 blade. Dissection was made down to the level of the transverse carpal ligament with care being taken to protect the palmar cutaneous nerve. Once the transverse carpal ligament was clearly visualized, a longitudinal incision was made in the transverse carpal ligament 1st using a #15 blade, then using tenotomy scissors under direct visualization. Care was taken to look for and protect the motor branch of the median nerve when seen in this area. Interestingly, the motor branch appeared to passed through the middle of the transverse carpal ligament passing radially. This was identified and protected. I carefully released this structure as well. One part of the branch passed towards the thumb, and another branch appeared to pass more distally towards the index finger. Again these were both freed up from the transverse carpal ligament and protected during the case. Once satisfied with our carpal tunnel release the wound was copiously irrigated with normal saline and hemostasis was obtained with a brief period of local pressure. The skin edges were reapproximated with some 5.0 nylon suture material and a sterile dressing was applied. The patient appears to have tolerated the procedure well and with no complications. All digits were well vascularized at the conclusion of the case.
[2024-12-30 12:48] VITALS: BMI 36.0
[2024-12-30 12:49] VITALS: BP 110/56; PULSE 61; RESP 18; TEMP 36.7; O2SAT 95
--- NOTE | 2024-12-30 12:51 | PC.NURSE ---
Dr. Zelaya assessed small scratched area on patient's right hand. Stated okay to proceed. Will have patient take antibiotic x 5 days post op at home, patient agrees with plan.
[2024-12-30 15:09] VITALS: BP 111/63; PULSE 66; RESP 16; O2SAT 93
== END 2024-12-30 15:33 | disposition home or self-care (01) ==
PROVIDERS: PCP Internal Medicine; Visit Provider Orthopaedic Surgery
PROC: (CPT 64721; principal; 2024-12-30 13:30)
DX: G56.01 Carpal tunnel syndrome, right upper limb (principal); I10 Essential (primary) hypertension; E11.9 Type 2 diabetes mellitus without complications; G62.9 Polyneuropathy, unspecified; R60.0 Localized edema; E78.5 Hyperlipidemia, unspecified; K21.9 Gastro-esophageal reflux disease without esophagitis; G47.33 Obstructive sleep apnea (adult) (pediatric); Z86.73 Personal history of transient ischemic attack (TIA), and cerebral infarction without residual deficits; F32.A Depression, unspecified; F41.9 Anxiety disorder, unspecified; E66.9 Obesity, unspecified; Z68.36 Body mass index [BMI] 36.0-36.9, adult; Z98.890 Other specified postprocedural states; Z87.891 Personal history of nicotine dependence
CPT/HCPCS: 64721; J0165; J2003; J2004

== ENCOUNTER → 2024-12-30 11:32 | Outpatient (BNV) | payer MEDICAID, SELFPAY | PROVIDERS: PCP Internal Medicine; Visit Provider Orthopaedic Surgery | DX: G56.01 Carpal tunnel syndrome, right upper limb (principal) | CPT/HCPCS: 64721 ==

== ENCOUNTER 2025-01-15 12:56 | Outpatient (AMB) | payer MEDICAID, SELFPAY ==
--- NOTE | 2025-01-15 13:07 | MHC.OFFVIS ---
Vital Signs 01/15/25 13:17 Height 5 ft 7 in Weight 240 lb BMI 37.6 Intake Visit Reasons: PO RT CTR 12/30/24 AR Intake Note: Josephine is a 64 year old right hand dominant female who presents today for a Post-Operative Visit status post Right Carpal Tunnel Release performed by Dr. Zelaya on 12/30/24. Patient reports she is doing well. Denies numbness, tingling, finger locking. Sutures removed and steri strips applied. Allergies No Known Allergies (No Known Allergies*) Allergy (Verified 01/15/25 13:17) HPI HPI PO RT CTR 12/30/24 AR: Details: Josephine is a 64 year old right hand dominant female who presents today for a Post-Operative Visit status post Right Carpal Tunnel Release performed by Dr. Zelaya on 12/30/24. Patient reports she is doing well. Denies numbness, tingling, finger locking. Denies any pain in the right upper extremity. Sutures removed and steri strips applied. Patient also reports symptoms have completely resolved in the left side. [facility] Medical History ELSA (obstructive sleep apnea) Lower extremity edema Hypertension Hyperlipidemia Neuropathy GERD (gastroesophageal reflux disease) NIDDY (non-insulin dependent diabetes mellitus in young) CVA (cerebral vascular accident) Anxiety Depression Obesity Surgical History History of carpal tunnel surgery of left wrist H/O endoscopy History of hip replacement Hx of cholecystectomy Hx of appendectomy Hx of splenectomy Family History Mother Heart problem Father Family history unknown Daughter No problems noted. Daughter No problems noted. Son No problems noted. Son No problems noted. Brother Colon cancer Brother Colon cancer Social History Are you a primary geriatric personal care aide to a significant other at home: No Do you presently have visiting nurse or other home services: No Alcohol intake: former Patient Tobacco Use Status: Former Tobacco user Tobacco use type: Cigarette Current occupational status: employed and disabled Current occupation: rt handed Review of Systems Const All systems reviewed & are unremarkable except as noted in HPI and below Physical Exam Vital Signs: BMI result Body Mass Index 37.6 Extrem Other: Patient is alert, oriented, and in no acute distress. Neuro: Normal sensation of the tips of all digits of the right hand at this time Vascular: Cap refill brisk Pain: No tenderness to palpation about the incision site on volar right wrist No pain with range of motion of the right hand ROM: Patient is able to make a closed fist and extend all digits of the right hand fully and without difficulty Skin: Well approximated and well healing incision site noted on volar right wrist No lacerations or abrasions. General: No ecchymosis, erythema, or evidence of infection. Psych: Appears grossly normal Affect normal Attitude cooperative Assessment & Plan Assessment & Plan (1) Bilateral carpal tunnel syndrome: Code(s): G56.03 - Carpal tunnel syndrome, bilateral upper limbs Category: Medical Plan 1. Status post right carpal tunnel release DOS 12/30/2024 With good symptomatic resolution postoperatively Patient appears to be recovering well postoperatively Patient is educated about the typical recovery course No under water times one-week, 2 lb weight limit x2 weeks Patient appears to be recovering very well, and requires no further acute follow-up with us postoperatively Patient is educated and worrisome signs and symptoms, and should call us if they experience any of these, including but not limited to redness, swelling, increased pain, and discharge Patient understands this and is amenable to this plan Coding Level of Care Code Global (69102) Diagnoses Bilateral carpal tunnel syndrome G56.03
[2025-01-15 13:17] VITALS: BMI 37.6
--- OUTSIDE RECORDS SUMMARY | 2025-01-15 19:55 | XMS_ITS | Clinical Summary ---
Author Organization [address] [facility] Address [address] [place] [address] Phone Care Team Providers Care Emt P Name Role Phone Rhonda Johnson MD Primary Care Provider [phone] Allergies No known active allergies Social History [...] Care Team (Late st Contact Info) Description 03/11/2025 9:45 AM EST Office Visit Orthopedic Surgery - [place] [address] [address] Valentin Cordova DPM [address] [address] Health Maintenance Due Date Last Done Comments [...] year. [facility]amm[facility]: [facility] [address], [address] -------- FINAL REPORT -------- Dictated By: Caleb Jackson Dictated Date: 09/30/2024 07:21 ET Assigned Physician: Caleb Jackson Reviewed and Electronically Signed By: Caleb Jackson Signed Date: 09/30/2024 07:27 ET Workstation ID: [id number] Transcribed By: Self Edit Transcribed Date: 09/30/2024 07:21 ET Narrative 09/30/2024 7:27 AM EDT EXAM: SCREENING MAMMOGRAPHY, BILATERAL HISTORY: SCREENING. No additional history. COMPARISON: 06/22/23, 05/12/16 TECHNIQUE: Synthesized CC and MLO projections of each breast. Tomosynthesis of each breast in the CC and MLO projections. ADDITIONAL IMAGING: None Computer-aided detection was employed with the iCAD Taptera AI 3-D. TISSUE DENSITY: There are scattered [...] year. Mammography location: [facility] at [address], [address] -------- FINAL REPORT -------- Dictated By: Caleb Jackson Dictated Date: 09/30/2024 07:21 ET Assigned Physician: Caleb Jackson Reviewed and Electronically Signed By: Caleb Jackson Signed Date: 09/30/2024 07:27 ET Workstation ID: [id number] Transcribed By: Self Edit Transcribed Date: 09/30/2024 [...] ID:Not on file Type:Not on file Address: [facility] ATTN:CLAIMS [address] [place], [place] Care Teams Emt P Relationship Specialty Start Date End Date Rhonda Johnson MD [address] [place] [address] [place] [address] PCP - General Internal Medicine 09/10/24
== END 2025-01-15 13:36 | disposition home or self-care (01) ==
LOC: HO.HOS 12:56
PROVIDERS: PCP Internal Medicine
DX: G56.03 Carpal tunnel syndrome, bilateral upper limbs (principal)
CPT/HCPCS: 99024

== ENCOUNTER → 2025-01-15 12:56 | Outpatient (BNVA) | payer MEDICAID, SELFPAY | PROVIDERS: PCP Internal Medicine | DX: Z48.811 Encounter for surgical aftercare following surgery on the nervous system (principal) | CPT/HCPCS: 99212 ==

== ENCOUNTER 2025-01-17 13:47 | Outpatient (AMB) | payer MEDICAID, SELFPAY ==
[2025-01-17 13:50] VITALS: BP 96/53; PULSE 66; BMI 37.3
--- NOTE | 2025-01-17 13:50 | A.OFFVIS_ITS ---
Vital Signs 01/17/25 13:50 Height 5 ft 7 in Weight 238 lb 1.588 oz BMI 37.3 BP 96/53 L Blood Pressure Location Lt brachial Position Sitting Pulse 66 Intake Visit Reasons: CIC Intake Note: Patient in follow up of CIC and lab results. CC:Patient states that she continues feeling the same and having constipation. Cash On Delivery Clerk Required: No Accompanied by: Daughter Allergies No Known Allergies (No Known Allergies*) Allergy (Verified 01/17/25 14:00) HPI HPI CIC: Details: Assessment & Plan (1) GERD (gastroesophageal reflux disease): Code(s): K21.9 - Gastro-esophageal reflux disease without esophagitis Category: Medical (2) COPD (chronic obstructive pulmonary disease): Code(s): J44.9 - Chronic obstructive pulmonary disease, unspecified Category: Medical (3) Personal history of nicotine dependence: Code(s): Z87.891 - Personal history of nicotine dependence Category: Medical (4) History of hepatitis C: Code(s): Z86.19 - Personal history of other infectious and parasitic diseases Category: Medical (5) History of peptic ulcer: Code(s): Z87.11 - Personal history of peptic ulcer disease Category: Medical Plan She is here today with her INVENTORY CLERK who is very helpful. Complicating factors for the constipation are COPD with oxygen dependence, diabetes, use of Carafate, furosemide, hydroxyzine, clonidine, iron, and oral phase dysphagia requiring thickened liquids that likely limits oral intake. She had a negative Cologuard test 11/2024. She has never had a colonoscopy. - The patient is a 64-year-old female presenting with chronic constipation. - Constipation has been long-standing, with difficulty in evacuation despite soft stool consistency. - Daily MiraLax is necessary to maintain bowel movements, achieving around three times per week; twice-daily usage leads to daily movements. - Past medicine use includes magnesium supplements, which were ineffective. - She notes occasional abdominal pain associated with prolonged constipation but denies any rectal bleeding. - The patient's diet consists mainly of yogurt or cottage cheese, salad, and meat with vegetables, with variable fluid intake. I discussed with the patient the likely contributing factors to her chronic constipation, including medication use. The potential constipating effects of sucralfate and methadone were explained, leading to a plan to discontinue sucralfate temporarily. Endoscopy was recommended to evaluate the stomach's current condition, considering the patient's ulcer history and past H. pylori infections. We also discussed the rationale for dietary review and monitoring of fluid intake. I advised against simultaneous colonoscopy due to the limiting diagnostic value in constipation without relevant symptoms. The family history of colon cancer was acknowledged, and CRC screening plans were reviewed. I emphasized the importance of follow-up to assess changes after medication adjustment, with a recommendation for re-evaluation in three weeks or earlier if symptoms worsen. - Stop taking sucralfate and monitor for changes in constipation. - Prepare for an upcoming endoscopy; we will contact you for scheduling. - Increase fluid and fiber intake as discussed. - Monitor for severe nausea or stomach pain after stopping sucralfate and contact us if these occur. - Schedule a follow-up visit in three weeks. - Report any new or worsening symptoms, especially gastrointestinal issues. Orders: Orders Hepatitis C Viral Load 12/06/24 Z86.19 - Personal history of other infectious and parasitic diseases Referrals GI Procedure Notification Z87.11 - Personal history of peptic ulcer disease LABS: Laboratory Tests 12/23/24 11:00 Hep C Viral Load <15 NOT DETECTED Hep C Viral Load Log <1.18 NOT DETECTED EGD BIOPSY TODAY'S VISIT [facility] Medical History ELSA (obstructive sleep apnea) Lower extremity edema Hypertension Hyperlipidemia Neuropathy GERD (gastroesophageal reflux disease) NIDDY (non-insulin dependent diabetes mellitus in young) CVA (cerebral vascular accident) Anxiety Depression Obesity Surgical History History of carpal tunnel surgery of left wrist H/O endoscopy History of hip replacement Hx of cholecystectomy Hx of appendectomy Hx of splenectomy Family History Mother Heart problem Father Family history unknown Daughter No problems noted. Daughter No problems noted. Son No problems noted. Son No problems noted. Brother Colon cancer Brother Colon cancer Social History Are you a primary care transitions manager to a significant other at home: No Do you presently have visiting nurse or other home services: No Alcohol intake: former Patient Tobacco Use Status: Former Tobacco user Tobacco use type: Cigarette Current occupational status: employed and disabled Current occupation: rt handed Review of Systems Const Denies fatigue, Denies fever(s), Denies night sweats, Denies poor appetite and Denies weight loss ENT Reports Normal hearing present, Denies dental pain, Denies dysphagia, Denies hearing loss, Denies mouth pain, Denies odynophagia, Denies throat swelling, Denies tongue swelling and Reports other (Dentition adequate) Card Reports no additional complaints and Reports dyspnea on exertion Resp Reports dyspnea on exertion GI Details: Denies abdominal pain, Denies melena, Denies bloating, Denies hematochezia, Reports constipation, Denies GI cramping, Denies dysphagia, Denies excessive flatus, Denies early satiety, Denies heartburn, Denies diarrhea, Denies nausea, Denies odynophagia, Denies vomiting and Denies hematemesis Musc Reports abnormal gait Skin/Breast Denies pruritus, Denies lesions, Denies rash and Denies jaundice Neuro Reports Normal hearing present, Denies Abnormal speech present and Reports abnormal gait Endo Denies fatigue Aller/Immun Denies throat swelling and Denies tongue swelling Physical Exam Const General: cooperative, no acute distress, well developed and well groomed Nutritional Appearance: well nourished and obese morbidly obese Orientation/consciousness: oriented to person, oriented to place and oriented to time Limitations: No language barrier, ambulation with walker and other limitations HEENT Head: Yes normocephalic and Yes atraumatic Eyes General: dysmorphic Pupils: Equal, round and reactive pupils present Neck Neck: Yes normal visual inspection and Yes no lymphadenopathy Thyroid: Thyroid normal Resp Other: On oxygen nasal cannula Effort & Inspection: normal respiratory effort and able to speak in complete sentences GI Inspection: No distended, Yes Abdominal panniculus present and Yes obesity Palpation (GI): Soft to palpation, nontender, no guarding, not rigid and No hepatosplenomegaly present Percussion: Yes normal to percussion Auscultation: normal bowel sounds Rectal Exam - Female: deferred Skin General skin exam: no rashes or lesions noted, turgor normal, skin not dry, no jaundice, No spider nevi and no striae Rashes: no rashes Nails: normal Neuro General: oriented to person, oriented to place and oriented to time Cranial nerves: Yes Equal, round and reactive pupils present and Yes Normal hearing present Speech: No Abnormal speech present Extrem General: Yes normal to inspection, No clubbing, No cyanosis and No edema Psych Thought process: Normal thought process present and not confabulating Thought content: Normal thought content present Insight: Good insight present (Psych) Judgement: Good judgement present (Psych) Assessment & Plan Assessment & Plan (1) Constipation: Code(s): K59.00 - Constipation, unspecified Category: Medical Plan CURRENT GI REGIMEN IS MIRALAX TWICE DAILY and magnesium oxide. Complicating factors for the constipation are COPD with oxygen dependence, diabetes, use of Carafate, furosemide, hydroxyzine, clonidine, iron, and oral phase dysphagia requiring thickened liquids that likely limits oral intake. She has soft stools but suffer severe incomplete evacuation. Subjective Patient presents for ongoing constipation. She stopped Carafate and has been taking MiraLAX twice daily every day without relief. She is amenable to adding a stimulant laxative and prefers to avoid nocturnal accidents; I counseled that the medication typically works overnight to facilitate a morning bowel movement and timing can be adjusted if needed. We discussed that hydration is moncada to MiraLAX effectiveness; she acknowledges she does not drink much water. She reports being mobile. History notable for prior hepatitis C; recent viral load was checked to clarify status. Objective - Hepatitis C viral load: negative. Assessment & Plan Constipation: Persistent constipation despite daily polyethylene glycol (MiraLAX) twice daily. Will add stimulant laxative to regimen. Reinforced hydration to optimize osmotic laxative efficacy and provided guidance on dosing timing. - Start senna, 2 tablets at bedtime; may adjust timing if nocturnal urgency occurs. - Continue MiraLAX as currently using; increase water intake to improve response. - Remain off Carafate. - Follow up in 8 weeks to reassess response and adjust regimen as needed. Upper endoscopy scheduling: Scheduling is in process through surgical schedulers; timeline reviewed. - Expect a scheduling call within approximately 8 weeks from the order date. History of hepatitis C?cured: Viral load undetectable, consistent with cure. - No further action required at this time. EGD BIOPSY Medications: New sennosides (Senna Laxative) 17.2 mg (2 x 8.6 mg) PO BEDTIME 60 tabs 6RF K59.00 - Constipation, unspecified Coding Level of Care Code Est Pt Level 3 (33033) Diagnoses Constipation K59.00
--- OUTSIDE RECORDS SUMMARY | 2025-01-17 19:16 | XMS_ITS | Data Portability ---
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 daily.Mult ivitamin 1 tab daily. Chronic anxiety 49631364 9 F41.1 Continue:a mitriptyli ne 50 mg dailyclona zepam 0.5 mg oral tablet daily-incr eased to BID for increasing anxietyClo nidine 0.1 mg oral tablet daily.Fluo xetine 80 mg daily.sero quel Give 100 mg by mouth at bedtime for anxietypsy ch eval Difficulty passing urine 427463952 R39.198 09/13: voiding without difficulty .09/06: no sx reported today.sx for 2 daysThere is no dysuria, frequency or urgency.mo nitor input/outp ut/ bladder scan prnsend urine w/reflux Cough 01562136 R05.9 report chronic cough that keeping her up at night+ smokerwill add benzonatat e 200 mg at HS.smoking cessation discussed. [id number] APOLINAR HAWLEY [facility] on [address] [place] [address] 09/21/2022 12:37:30 09/28/2022 20:10:15 Migraine 35524271 G43.909 09/21 stable.Hx of migraine, went to [facility] with headache.T x with migraine cocktail including Tylenol, Toradol, Compazine and Benadryl along with IV fluids which significan tly improved her symptoms but presents with recurrence .already on amitriptyl ine at home Acute on c hronic hypoxemic respiratory failure [id number] 2212666 J96.21 09/21: no resp distress reported.H ypoxia 70% on room on presentati on.COPD exacerbati onChest x-ray with no acute diseaseTx prednisone 40 mg daily for 4 days-compl etedContin ue oxygen supplement ation as neededWill need home oxygen evaluation prior to discharge Moderate c hronic obstructive pulmonary disease 941524998 J41.0 09/21: encouraged to use prn inhaler when feeling SOB.Albute rol 2 puff(s) Inhalation 4 times a day as needed for wheezing.A lbuterol/I pratropium QID prnDulera 100 mcg-5 mcg/inh inhalation BIDSpiriva 18 mcg dailyoxyge n 2-3 liter prn 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 Hyperlipidemia 32290524 E78.49 rosuvastat in 40 mg dailymonit or labs Gastroesop hageal reflux disease without esophagitis 064376027 K21.9 Sucralfate Oral Tablet 1 GM History of cerebrovascular accident 229708309 Z86.73 aspirin 81 mg oral tablet daily. Nicotine dependence 5629 4008 F17.200 09/21: continues to smoke; smoking cessation encouraged , patch offered and refused. ates she quit smoking recently.N icotine 21 mg Q 24 hrssmoking cessation Chronic ne uropathic pain 230000477 M79.2 gabapentin 400 mg TID. Anemia 410759443 D64.9 ferrous sulfate 325 mg daily.Mult ivitamin 1 tab daily. Chronic anxiety 54540597 9 F41.1 Continue:mervin mitriptyli ne 50 mg dailyclona zepam 0.5 mg oral tablet daily-incr eased to BID for increasing anxietyClo nidine 0.1 mg oral tablet daily.Fluo xetine 80 mg daily.sero quel Give 100 mg by mouth at bedtime for anxietypsy ch eval Difficulty passing urine 629244734 R39.198 09/13: voiding without difficulty .09/06: no sx reported today.sx for 2 daysThere is no dysuria, frequency or urgency.mo nitor input/outp ut/ bladder scan prnsend urine w/reflux Cough 50858195 R05.9 report chronic cough that keeping her up at night+ smokerwill add benzonatat e 200 mg at HS.smoking cessation discussed. [id number] APOLINAR HAWLEY [facility] on [address] [place] [phone] 09/23/2022 16:18:54 09/28/2022 20:30:11 Nausea 349688441 R11.0 hx of gerdshe reports that she [...] eval. Gastroesop hageal reflux disease without esophagitis 745214488 K21.9 reports nausea for 2 weeksSucra lfate Oral Tablet 1 GMprometha zine 6.25 mg prn ordered. [id number] APOLINAR HAWLEY [facility] on [address] [place] [phone] 09/28/2022 08:55:47 10/05/2022 15:32:02 Nausea 136294671 R11.0 hx of gerdshe reports that she [...] delivered. Gastroesop hageal reflux disease without esophagitis 444422417 K21.9 reports nausea for 2 weeks- continuesS ucralfate Oral Tablet 1 GMprometha zine 6.25 mg prn ordered/ erxtened as she never received. [id number] AP[facility]INAR HAW[facility] on [address] [place] [phone] 10/04/2022 09:56:29 10/11/2022 15:59:38 Nausea 794292233 R11.0 10/04: has improved with promethazi ne.hx [...] delivered. Gastroesop hageal reflux disease without esophagitis 354930065 K21.9 Sucralfate Oral Tablet 1 GMprometha zine 6.25 mg prn ordered/ extened as she never received. Migraine 68144842 G43.90 9 Hx of migraine, went to [facility] with headache.T x with migraine cocktail including Tylenol, Toradol, Compazine and Benadryl along with IV fluids which significan tly improved her symptoms but presents with recurrence .already on amitriptyl ine at home Acute on c hronic hypoxemic respiratory failure [id number] 9993097 J96.21 10/04: on exam today she is lying in bed off O2, there is no resp issues. breathing easy and unlabored. 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 Hyperlipidemia 04642999 E78.49 rosuvastat in 40 mg dailymonit or labs History of cerebrovascular accident 649981717 Z86.73 aspirin 81 mg oral tablet daily. Nicotine dependence 5629 4008 F17.200 09/21: continues to smoke; smoking cessation encouraged , patch offered and refused.St ates she quit smoking recently.N icotine 21 mg Q 24 hrssmoking cessation Chronic ne uropathic pain 606839263 M79.2 gabapentin 400 mg TID. Anemia 033561009 D64.9 ferrous sulfate 325 mg daily.Mult ivitamin 1 tab daily. Chronic anxiety 56522866 9 F41.1 Continue:a mitriptyli ne 50 mg dailyclona zepam 0.5 mg oral tablet daily-incr eased to BID for increasing anxietyClo nidine 0.1 mg oral tablet daily.Fluo xetine 80 mg daily.sero quel Give 100 mg by mouth at bedtime for anxietypsy ch eval Difficulty passing urine 474324081 R39.198 09/13: voiding without difficulty .09/06: no sx reported today.sx for 2 daysThere is no dysuria, frequency or urgency.mo nitor input/outp ut/ bladder scan prnsend urine w/reflux Cough 22291502 R05.9 report chronic cough that keeping her up at night+ smokerwill add benzonatat e 200 mg at HS.smoking cessation discussed. [id number] APOLINAR HAWLEY [facility] on [address] [place] [address] 10/14/2022 08:23:26 10/19/2022 15:57:23 Fall W19.XXXA reports fall this morningnow with right elbow and left knee painright lateral arm elbow with swelling and slight redness with raised bump.xray of right upper extremity/ elbowtylen ol 975 mg and ibuprofen 600 mg now dose ordered. [id number] APOLINAR HAWLEY [facility] on [address] [place] [phone] 10/19/2022 13:31:55 10/25/2022 14:41:17 Type 2 diabetes mellitus 15196414 E11.9 Metformin 500 mg BIDSSC discontinu ed in hosp d/t hypoglycem iamonitor BGLmonitot for s/sx of hypo/hyper glycemia Hyperlipidemia 78520223 E78.49 rosuvastat in 40 mg dailymonit or labs History of cerebrovascular accident 056364578 Z86.73 aspirin 81 mg oral tablet daily. Nicotine dependence 5629 4008 F17.200 09/21: continues to smoke; smoking cessation encouraged , patch offered and refused.St ates she quit smoking recently.N icotine 21 mg Q 24 hrssmoking cessation Chronic ne uropathic pain 082936364 M79.2 gabapentin 400 mg TID. Anemia 763197503 D64.9 ferrous sulfate 325 mg daily.Mult ivitamin 1 tab daily. Chronic anxiety 85702841 9 F41.1 Continue:a mitriptyli ne 50 mg dailyclona zepam 0.5 mg oral tablet daily-incr eased to BID for increasing anxietyClo nidine 0.1 mg oral tablet daily.Fluo xetine 80 mg daily.sero quel Give 100 mg by mouth at bedtime for anxietypsy ch eval Difficulty passing urine 444730728 R39.198 09/13: voiding without difficulty .09/06: no sx reported today.sx for 2 daysThere is no dysuria, frequency or urgency.mo nitor input/outp ut/ bladder scan prnsend urine w/reflux Cough 57933867 R05.9 report chronic cough that keeping her up at night+ smokerwill add benzonatat e 200 mg at HS.smoking cessation discussed. [id number] APOLINAR HAWLEY [facility] on [address] [place] [address] 10/27/2022 09:47:17 11/08/2022 13:08:50 Type 2 diabetes mellitus 24008090 E11.9 new ord to check FS to update to PCCMetform in 500 mg BIDSSC discontinu ed in hosp d/t hypoglycem iamonitor BGLmonitor for s/sx of hypo/hyper glycemia Hyperlipidemia 92377937 E78.49 rosuvastat in 40 mg dailymonit or labs History of cerebrovascular accident 052352726 Z86.73 aspirin 81 mg oral tablet daily. Nicotine dependence 5629 4008 F17.200 09/21: continues to smoke; smoking cessation encouraged , patch offered and refused.St ates she quit smoking recently.N icotine 21 mg Q 24 hrssmoking cessation Chronic ne uropathic pain 870231475 M79.2 gabapentin 400 mg TID. Anemia 806918844 D64.9 ferrous sulfate 325 mg daily.Mult ivitamin 1 tab daily. Chronic anxiety 65999906 9 F41.1 Continue:a mitriptyli ne 50 mg dailyclona zepam 0.5 mg oral tablet daily-incr eased to BID for increasing anxietyClo nidine 0.1 mg oral tablet daily.Fluo xetine 80 mg daily.sero quel Give 100 mg by mouth at bedtime for anxietypsy ch eval Cough 43810107 R05.9 stable, able to sleep at night.repo rt chronic cough that keeping her up at night+ smokerwill add benzonatat e 200 mg at HS.smoking cessation discussed. [id number] [facility]IN[facility] HAW[facility] on [address] [place] [address] 11/02/2022 07:09:07 11/09/2022 11:07:43 Type 2 diabetes mellitus 22603820 E11.9 FS monitored for 6 days ranged from 87-110Metf ormin 500 mg BIDSSC discontinu ed in hosp d/t hypoglycem iamonitor BGLmonitor for s/sx of hypo/hyper glycemia Hyperlipidemia 88818763 E78.49 rosuvastat in 40 mg dailymonit or labs History of cerebrovascular accident 789991708 Z86.73 aspirin 81 mg oral tablet daily. Nicotine dependence 5629 4008 F17.200 11/02: smoking cessation approach, patch offered and refused.Ni cotine 21 mg Q 24 hrssmoking cessation Chronic ne uropathic pain 581397264 M79.2 gabapentin 400 mg TID Anemia 172143624 D64.9 ferrous sulfate 325 mg daily.Mult ivitamin 1 tab daily. Chronic anxiety 63547468 9 F41.1 : She is followed by and was [...] at bedtime for anxietypsy ch eval Cough 98766757 R05.9 controlled stable, able to sleep at night.repo rt chronic cough that keeping her up at night+ smokercont inue benzonatat e 200 mg at HS. [id number] [facility]INAR HAW[facility] on [address] [place] [address] 11/09/2022 07:14:30 11/17/2022 10:53:16 Type 2 diabetes mellitus 21983179 E11.9 FS monitored for 6 days ranged from 87-110Metf ormin 500 mg BIDSSC discontinu ed in hosp d/t hypoglycem iamonitor BGLmonitor for s/sx of hypo/hyper glycemia Hyperlipidemia 92394660 E78.49 rosuvastat in 40 mg dailymonit or labs History of cerebrovascular accident 328216121 Z86.73 aspirin 81 mg oral tablet daily. Nicotine dependence 5629 4008 F17.200 smoking cessation approach, patch offered and refused.Ni cotine 21 mg Q 24 hrssmoking cessation Chronic ne uropathic pain 648270447 M79.2 gabapentin 400 mg TID Anemia 831582345 D64.9 ferrous sulfate 325 mg daily.Mult ivitamin 1 tab daily. Chronic anxiety 76410556 F41.1 She is followed by and was seen [...] at bedtime for anxietypsy ch eval Cough 47818614 R05.9 controlled stable, able to sleep at night.repo rt chronic cough that keeping her up at night+ smokercont inue benzonatat e 200 mg at HS. [id number] Miriam Mcneill MD [facility] on [address] [place] [phone] 11/11/2022 06:22:50 11/17/2022 11:42:26 Chronic obstructive pulmonary disease 78063861 J41.0 albuterol HFA: 2 puffs q6h prnDuoneb updrafts q6h prnSpiriva 18 mcg: one inhalation dailyDuler a 100-5: 2 puffs bidwill monitor Type 2 padilla betes mellitus 36075946 E11.9 metformin 500 mg bid will monitor Mixed anxi ety and depressive disorder 058032452 F41.8 clonidine 0.1 mg tidclonaze asha 0.5 mg tidfluoxet ine 80 mg dailygabap entin 400 mg tidquetiap ine 100 mg at hswill monitor Chronic pain 01565284 G8 9.29 amitriptyl ine 50 mg dailyLidoc lupillo patch to back dailyibupr ofen 600 mg q6h prnAPAP 975 mg q6h prnwill monitor Essential hypertension 12259191 I10 clonidine 0.1 mg tid will monitor Opioid dependence 580047 00 F11.20 methadone 155 mg dailyfu methadone clinicwill monitor Gastroesop hageal reflux disease without esophagitis 700326202 K21.9 sucralfate 1 gm tidwill monitor History of cerebrovascular accident 249441910 Z86.73 rosuvastat in 40 mg daily ASA 81 mg daily will monitor [id number] APOLINAR HAW[facility] on [address] [place] [phone] 11/15/2022 08:51:56 11/17/2022 12:19:10 Type 2 diabetes mellitus 80013238 E11.9 stableMetf ormin 500 mg BIDSSC discontinu ed in hosp d/t hypoglycem iamonitor BGLmonitor for s/sx of hypo/hyper glycemia Hyperlipidemia 26651546 E78.49 rosuvastat in 40 mg dailymonit or labs History of cerebrovascular accident 272026415 Z86.73 aspirin 81 mg oral tablet daily. Nicotine dependence 5629 4008 F17.200 smoking cessation approach, patch offered and refused.Ni cotine 21 mg Q 24 hrs11/15: smoking cessation encouraged , she os c/o possible pna but continues to smoke. Chronic ne uropathic pain 749386686 M79.2 gabapentin 400 mg TID Anemia 394147517 D64.9 ferrous sulfate 325 mg daily.Mult ivitamin 1 tab daily. Chronic anxiety 76069758 9 F41.1 amitriptyl ine 50 mg dailyclona zepam 0.5 mg oral tablet TIDClonidi ne 0.1 mg oral tablet daily.Fluo xetine 80 mg daily.sero quel Give 100 mg by mouth at bedtime for anxietypsy ch eval Moderate c hronic obstructive pulmonary disease 607298998 J41.0 11/15: increasing SOB with congestion cough- [...] n 2-3 liter prn Pain in palate 107163269 K13.79 reports soreness on soft palate from denturesma ll red area noted; not ulceratedi nstructed to rinse with warm salt water TID prnwill order oragel gel tid prn [id number] APOLINAR HAWLEY [facility] on [address] [place] [address] 11/21/2022 11:11:49 11/23/2022 12:19:18 Pneumonia 594729648 J18.9 11/21: resolving, breathingh as improved, reports feeling 100% better. smoikong cessation encouraged again. 11/15: increasing SOB with congestion cough- with yellow sputum, breathing is easy and unlabored. 11/14:WBC 20- she has hx of splenectom y -will order chest xray due to sx10/: Stat chest xray showed Patchy modest bilateral airspace disease. suggestive of pneumonias tarted on augmentin 875/125 and doxycyline 100mg BID for 7 daysschedu led albuterol neb tx TID for 3 dayssmokin g cessation while being treated for pna encouraged , nicotine patch offered, she will think about it. [id number] APOLINAR HAWLEY [facility] on [address] [place] [phone] 11/25/2022 07:37:22 11/29/2022 11:38:02 Moderate chronic obstructive pulmonary disease 938120807 J41.0 11/25: chronic non productive cough with [...] dailyoxyge n 2-3 liter prn Chronic cough 81492402 R 05.3 due to smoking.sm oking cession - refused nicotine patchbenzo natate 200 mg TID [id number] [facility]OLINAR HAW[facility] on [address] [place] [phone] 3 12/01/2022 08:15:02 12/08/2022 15:59:24 Moderate chronic obstructive pulmonary disease 473253557 J41.0 12/01: Breathing is easy and unlaboreds he tells me that cough has improved but continues. i know it because i keep smoking . continue:e ncouraged to use prn inhaler when feeling SOB.Albute rol 2 puff(s) Inhalation 4 times a day as needed for wheezing.A lbuterol/I pratropium QID prnDulera 100 mcg-5 mcg/inh inhalation BIDSpiriva 18 mcg dailyoxyge n 2-3 liter prn Chronic cough 89405592 R 05.3 12/01: She reports cough continues but has improved.C kieraues to smiokes, she tells me she is going to try hard to stop.rafiqi viviane cessation, nicotine patch offered and refused again. [id number] [facility]INAR HAW[facility] on [address] [place] [address] 12/07/2022 07:02:14 12/09/2022 08:48:45 Moderate chronic obstructive pulmonary disease 572326594 J41.0 12/07: see hpiBreathi ng is easy [...] dailyoxyge n 2-3 liter prn Chronic cough 85959675 R 05.3 12/07: today she reports worsening cough with sob and expectoran t. Continues to smokes, she tells me she is going to try hard to stop.smoki ng cessation, nicotine patch offered and refused again.ches t xray ordered.co ntinue benzonatat e Chronic depression 49349 0009 F34.1 12/07: reports that her mood is stable/imp roving, she believes therapy is helping her to deal with recent family trauma.ami triptyline 50 mg dailyclona zepam 0.5 mg oral tablet TIDClonidi ne 0.1 mg oral tablet daily.Fluo xetine 80 mg daily.sero quel Give 100 mg by mouth at bedtime for anxietypsy ch eval Chronic anxiety 17262752 9 F41.1 see above [id number] Carlita Tamayo [facility] on [address] [place] [address] 12/16/2022 10:33:05 01/06/2023 15:48:45 Moderate chronic obstructive pulmonary disease 404063587 J41.0 see hpiBreatharlen pan is easy and unlaboredC hest x-ray ordered.sm [...] dailyoxyge n 2-3 liter prn Chronic cough 25603924 R 05.3 today she reports worsening cough with sob and expectoran t. not new, dry cough Continues to smokes, she tells me she is going to try hard to stop.smoki ng cessation, nicotine patch offered and refused again.ches t xray ordered.co ntinue benzonatat e Chronic depression 48638 0009 F34.1 reports that her mood is stable/imp roving, she believes therapy is helping her to deal with recent family trauma.ami triptyline 50 mg dailyclona zepam 0.5 mg oral tablet TIDClonidi ne 0.1 mg oral tablet daily.Fluo xetine 80 mg daily.sero quel Give 100 mg by mouth at bedtime for anxietypsy ch eval Chronic anxiety 97201880 9 F41.1 see above [id number] Carlita Tamayo [facility] on [address] [place] [phone] 12/23/2022 09:27:09 12/27/2022 11:03:50 Moderate chronic obstructive pulmonary disease 670211854 J41.0 usual SOB on O2 via NC [...] dailyoxyge n 2-3 liter prn Chronic cough 42086271 R 05.3 Continues to smokes, she tells me she is going to try hard to stop.smoki ng cessation, nicotine patch offered and refused again.cont inue benzonatat e Chronic depression 16021 0009 F34.1 reports that her mood is stable/imp roving, she believes therapy is helping her to deal with recent family trauma.ami triptyline 50 mg dailyclona zepam 0.5 mg oral tablet TIDClonidi ne 0.1 mg oral tablet daily.Fluo xetine 80 mg daily.sero quel Give 100 mg by mouth at bedtime for anxietypsy ch eval Chronic anxiety 54978940 9 F41.1 see above Edema of l ower extremity 041294071 R60.0 RLE worsening with painbedsid e ultrasound ordered. [id number] APOLINAR HAW[facility] on [address] [place] [phone] 12/30/2022 10:29:10 01/11/2023 12:20:38 Moderate chronic obstructive pulmonary disease 828526250 J41.0 At baseline status with usual shortness of breath, continues to smokes despite ongoing skoking cessation discussion s. continue:e ncouraged to use prn inhaler when feeling SOB.Albute rol 2 puff(s) Inhalation 4 times a day as needed for wheezing.A lbuterol/I pratropium QID prnDulera 100 mcg-5 mcg/inh inhalation BIDSpiriva 18 mcg dailyoxyge n 2-3 liter prn Chronic cough 84532429 R 05.3 Continues to smokes,con tinue benazonate 100 mg as ordered.sm oking cessation, nicotine patch offered and refused again. [id number] [facility]INAR HAW[facility] on [address] [place] [phone] 3 01/09/2023 12:47:53 01/12/2023 15:48:25 Dyspnea 644171679 R06.00 see hpicontinu e with O2 as neededLS decreased, breathing mildly labored, able to speak in sentences. rapid covid swab negativesw ab for influenza , RSVmonitor VS Qshiftcont inue support care -neb tx prn, tylenol, encouraged fluidsches t xraygive now dose of prednisone 40 mg and then scheduled for 4 more days.start Azithromyc in zpak for 5 days .CBC/diff- BMP [id number] APOLINAR HAW[facility] on [address] [place] [address] 02/07/2023 08:25:30 02/24/2023 10:28:22 Pain of shoulder region 20472069 M25.519 see hpiabducti on and adduction without painreport s pain with forward and backward flexionthe re is no swelling noted to extremity+ CMS noted 4: xray ordered by resolution expert provider, not yet completed. [id number] Martin Yusuf MD [facility] on [address] [place] [address] 02/15/2023 12:47:51 02/22/2023 17:49:01 Hematoma 519026399 M79.81 appears to be hematoma secondary to strainmoni tor site and need for ULexam reassuring watchful waitingof note on ASA 81 mg qd [id number] Miriam Mcneill MD [facility] on [address] [place] [address] 3 02/17/2023 06:25:22 02/22/2023 18:03:49 Chronic obstructive pulmonary disease 57718225 J41.0 albuterol HFA: 2 puffs q6h prnDuoneb updrafts q6h prnSpiriva 18 mcg: one inhalation dailyDuler a 100-5: 2 puffs bidwill monitor Type 2 padilla betes mellitus 81998974 E11.9 metformin 500 mg bid will monitor Mixed anxi ety and depressive disorder 580627446 F41.8 clonidine 0.1 mg tidclonaze asha 0.5 mg tidfluoxet ine 80 mg dailygabap entin 400 mg tidquetiap ine 100 mg at hsamitript yline 50 mg dailywill monitor Essential hypertension 79946242 I10 clonidine 0.1 mg tidfurosem danielle 10 mg dailywill monitor Gastroesop hageal reflux disease without esophagitis 945074989 K21.9 sucralfate 1 gm tidwill monitor History of cerebrovascular accident 280073272 Z86.73 rosuvastat in 40 mg daily ASA 81 mg daily will monitor [id number] BEAN DAO NP [facility] on [address] [place] [address] 03/06/2023 09:59:22 03/08/2023 16:42:38 Chronic obstructive pulmonary disease 47248740 J41.0 albuterol HFA: 2 puffs q6h prnDuoneb updrafts q6h prnSpiriva 18 mcg: one inhalation dailyDuler a 100-5: 2 puffs bidwill monitor Type 2 padilla betes mellitus 74018109 E11.9 metformin 500 mg bid will monitor Mixed anxi ety and depressive disorder 876636292 F41.8 clonidine 0.1 mg tidclonaze asha 0.5 mg tidfluoxet ine 80 mg dailygabap entin 400 mg tidquetiap ine 100 mg at hsamitript yline 50 mg dailywill monitor Essential hypertension [id number] I10 clonidine 0.1 mg tidfurosem danielle 10 mg dailywill monitor Gastroesop hageal reflux disease without esophagitis 935294013 K21.9 sucralfate 1 gm tidwill monitor History of cerebrovascular accident 959848207 Z86.73 rosuvastat in 40 mg daily ASA 81 mg daily will monitor Pain of sh oulder region [id number] M25.519 see hpiabducti on and adduction without painreport s pain with forward and backward flexionthe re is no swelling noted to extremity+ CMS noted 4: xray ordered by resolution expert provider, not yet completed. Health Concerns Section Related Observation LastModified by Organization Detai ls LastModified Time None Recorded Concern Status LastModified by Organization Details LastModified Time None Recorded Advance Directives Directive Y: DNR , may intubate and ve ntilate and transfer, use dialysis, art hydration and nutrition. Payers Insurance Date Sequence Insurance Name Policy Number Policy Sincliar Covered Member ID Sinclair Member ID Guarantor Name 06/03/[address] [facility] - HEALTH NET PLAN (MEDICAID HMO) [id number] Josephine Giron [id number] Josephine Mack 02/07/2023 1 [place] [facility] Josephine A Mack [id number] Josephine Mack 06/03/2020 1 [facility] (MEDICAID HMO) [id number] Josephine Mack [id number] Josephine Mack 01/10/[address] [facility] - HEALTH NET PLAN (MEDICAID HMO) [id number] Josephine Mack [id number] Josephine Mack Notes Date Note Type [...] anemia, chronic active smoker. APOLINAR HAWLEY [address] [facility], [address], [place], [address], [facility] 01/09/2023 17:22:14 02/07/2023 text/html ROS as noted [...] anemia, chronic active smoker. APOLINAR HAWLEY [address] [facility], [address], [place], [address], [facility] 02/07/2023 14:48:28 02/15/2023 text/html Patient is a 63 yo female resident seen for acute rounding. Patient was lowering the window in her room 2 days prior felt a strain now with bruise and tenderness mid right bicep Martin Yusuf MD [address] [facility], [address], [place], [address], [facility] 02/15/2023 12:51:55 02/17/2023 text/html This 63 year old female subacute rehab patient is seen today for routine rounding visit. Medical history is remarkable for history of CVA with residual left sided weakness, COPD on home oxygen prn, DM, PTSD, opioid use disorder in remission on maintenance agonist therapy, migraine, GERD Patient was admitted to [facility] on 08/29/22 after hospital stay for [...] DNH - signed 08/29/22 Miriam Mcneill MD [address] [facility], [address], [place], [address], [facility] 02/17/2023 13:00:59 03/06/2023 text/html ROS as noted in the HPI seen today for discharge summary-63 year old female subacute rehab patient.Patient was admitted to [facility] on 08/29/22 after hospital stay for fall out of bed hitting her eye on floor and COPD exacerbation.Ruthie nt developed cough and shortness of breath [...] report no concerns BEAN DAO NP [address] [facility], [address], [place], [address], [facility] 03/06/2023 10:09:54 OBGyn Episode No OBEpisode recorded.
--- OUTSIDE RECORDS SUMMARY | 2025-01-17 19:16 | XMS_ITS | Clinical Summary ---
Author Organization [address] [facility] Address [address] [place] [address] Phone Care Team Providers Care Automatic Winder Operator Name Role Phone Rhonda Johnson MD Primary Care Provider [phone] Allergies No known active allergies Social History [...] AM EST Office Visit Orthopedic Surgery - [place] [address] [address] Valentin Cordova DPM [address] [address] Health Maintenance Due Date Last [...] year. [facility]amm[facility] [address], [address] -------- FINAL REPORT -------- Dictated By: Caleb Jackson Dictated Date: 09/30/2024 07:21 ET Assigned Physician: Caleb Jackosn Reviewed and Electronically Signed By: Caleb Jackson Signed Date: 09/30/2024 07:27 ET Workstation ID: [id number] Transcribed By: Self Edit Transcribed Date: 09/30/2024 07:21 ET Narrative 09/30/2024 7:27 AM EDT EXAM: SCREENING MAMMOGRAPHY, BILATERAL HISTORY: SCREENING. No additional history. COMPARISON: 06/22/23, 05/12/16 TECHNIQUE: Synthesized CC and MLO projections of each breast. Tomosynthesis of each breast in the CC and MLO projections. ADDITIONAL IMAGING: None Computer-aided detection was employed with the iCAD [employer] AI 3-D. TISSUE DENSITY: There are scattered [...] year. Mammography location: [facility] [address], [address] -------- FINAL REPORT -------- Dictated By: Caleb Jackson Dictated Date: 09/30/2024 07:21 ET Assigned Physician: Caleb Jackson Reviewed and Electronically Signed By: Caleb Jackson Signed Date: 09/30/2024 07:27 ET Workstation ID: [id number] Transcribed By: Self Edit Transcribed Date: 09/30/2024 [...] ID:Not on file Type:Not on file Address: [facility] ATTN:CLAIMS [address] [place], [place] Care Teams Automatic Winder Operator Relationship Specialty Start Date End Date Rhonda Johnson MD [address] [place] [address] [place] [address] PCP - General Internal Medicine 09/10/24
== END 2025-01-17 14:30 | disposition home or self-care (01) ==
LOC: HO.HGI 13:48
PROVIDERS: PCP Internal Medicine; Visit Provider Nurse Practitioner
DX: K59.00 Constipation, unspecified (principal)
CPT/HCPCS: 99213

== ENCOUNTER → 2025-01-17 13:47 | Outpatient (BNVA) | payer MEDICAID, SELFPAY | PROVIDERS: PCP Internal Medicine; Visit Provider Nurse Practitioner | DX: K59.00 Constipation, unspecified (principal); Z79.899 Other long term (current) drug therapy | CPT/HCPCS: 99212 ==